=== PATIENT | male | born 1955 | race Caucasian/White ===

== ENCOUNTER → 2020-06-05 10:17 | Outpatient (REF) | payer OTHER, SELFPAY ==
--- NOTE | 2020-06-05 10:30 | CA_ITS ---
Transthoracic Echocardiogram Patient (Last, First, Middle): Richard Ordaz R Gender: Male Date of : 1955 Age: 64 Procedure Date: 06/05/2020 Procedure Type: Transthoracic Echocardiogram Location: OP Height: 180.34 cm Weight: 126.55 kg BSA: 2.43 m2 Heart Rate: bpm BP: 129 / 81 mmHg Instructional Resource Teacher: JOSE CRUZ Referring MD: Amalia Salcedo MD Symptoms: [facility] 110 Essential hypertension, M79.89 Edema lower extremity Study Quality: Fair ECG Rhythm: Sinus Conclusions: - The left ventricular systolic function is normal. The visually estimated ejection fraction is between 60-65%. - No obvious valvular pathology seen on this study. - Small plaque is seen in the ascending aorta. Findings Left Ventricle Normal left ventricular cavity size. There is normal left ventricular wall thickness. The left ventricular systolic function is normal. The visually estimated ejection fraction is between 60-65%. There is no evidence of regional wall motion abnormalities. Diastolic function is normal for age. Right Ventricle Normal right ventricular cavity size and systolic function. Atria The left atrium is normal in size. The right atrium is normal in size. Aortic Valve There is a normal trileaflet aortic valve. There is no aortic valve stenosis. There is no aortic valve regurgitation. Mitral Valve The mitral valve appears normal. There is no mitral valve regurgitation. There is no mitral valve stenosis. Pulmonic Valve The pulmonic valve was not well visualized. Tricuspid Valve Normal tricuspid valve structure. There is trace tricuspid valve regurgitation. The pulmonary artery systolic pressure is normal. Great Vessels The aortic annulus, sinuses of valsalva, and asc aorta are normal in size. Small plaque is seen in the ascending aorta. Venous The inferior vena cava was not well visualized. Pericardium/Pleural There is no evidence of pericardial effusion. Prior Study Comparison No prior study available for comparison. Recommendations, Care & Conclusions No obvious valvular pathology seen on this study. Measurements 2D Linear Measurements IVSd: 0.96 0.6-0.9/0.6-1.0 cm LVIDd: 5.32 3.9-5.3/4.2-5.9 cm LVIDd Index: 2.19 2.4-3.2/2.2-3.1 cm/m2 LVIDs: 3.28 2.0-3.6 cm LVPWd: 1.08 0.7-1.1 cm Ao Root: 3.20 2.1-3.5 cm LA Diam: 4.60 2.7-3.8/3.0-4.0 cm LAIDs Index: 1.89 1.5-2.3 cm/m2 LV Mass: 257.71 67-162/88-224 g LV Mass Index: 106.05 43-95/49-115 g/m2 LVOT Diam: 2.30 3.0+(-)1.3 cm 2D Systolic Function EF 4C: 64.50 >55% EF 2C: 63.20 >55% EF BiP: 63.40 >55% Mitral Valve MV Pk E: 0.68 MV PK A: 0.58 MV Decel Time: 132.00 E/A: 1.20 E'Lateral: 9.28 E'Medial: 9.96 E/E' Med: 6.80 E/E' Lat: 7.30 PHT: 39.00 MVA PHT: 5.64 Decel [place]: 5.14 Aortic Valve AoV Pk O[place]iel: 1.19 AoV Pk Grad: 6.00 LVOT LVOT Pk Otoniel: 1.15 LVOT Mn Otoniel: 0.80 LVOT VTI: 0.25 LVOT Pk Grad: 5.00 LVOT Mn Grad: 3.00 LVOT Diam: 2.30 LVOT Area: 4.15 Diastolic Function MV Pk E: 0.68 MV Pk A: 0.58 E/A: 1.20 E'Medial: 9.96 E/E' Med: 6.80 E' Laterial: 9.28 E/E' Lat: 7.30 Tricuspid Valve TR Pk Otoniel: 2.57 TR Pk Grad: 26.00 Great Vessels Aorta Ao Root-2D: 3.20 2.0-3.7 cm Ao Asc: 3.70 2.1-3.4 cm Updated in Other Vendor System with Status of Final Vitaliy Lay MD electronically signed on 06/06/2020 5:23:03 PM with status of Final
== END ==
LOC: HO.CARD 10:17
PROVIDERS: PCP Internal Medicine; Visit Provider Internal Medicine
DX: I10 Essential (primary) hypertension (principal); E78.9 Disorder of lipoprotein metabolism, unspecified; M79.89 Other specified soft tissue disorders
CPT/HCPCS: 93306

== ENCOUNTER 2020-11-27 10:10 | Outpatient (REF) | payer MEDICARE, OTHER, SELFPAY ==
[2020-11-27 11:18] LABS: MANUAL DIFF FLAG NO
[2020-11-27 11:31] LABS: Basophils Percent Auto 0.9 % (0-2); Eosinophils Absolute Auto 0.2 X10*3/uL (0.0-0.4); Eosinophils Percent Auto 3.9 % (0-4); Hematocrit 44.7 % (42-52); Hemoglobin 15.2 g/dl (14.0-18.0); Imm Gran Abs Auto 0.01 X10*3/uL (0.00-0.03); Imm Gran Pct Auto 0.2 % (0.0-0.4); Lymphocytes Absolute Auto 1.4 X10*3/uL (1.2-4.9); Lymphocytes Percent Auto 32.6 % (20-40); Mean Corpuscular Hemoglobin 28.3 pg (27.0-33.0); Mean Corpuscular Volume 83.1 fL (80-98); Mean Platelet Volume 8.1 fL (9.4-12.4); Monocytes Absolute Auto 0.4 X10*3/uL (0.1-1.2); Monocytes Percent Auto 9.6 % (2-11); Neutrophils Absolute Auto 2.3 X10*3/uL (2.0-8.3); Neutrophils Percent Auto 52.8 % (45-73); Platelet Count 223 X10*3/uL (160-400); Red Blood Count 5.38 X10*6/uL (4.60-5.80); Red Cell Distribution Width 13.9 % (11.0-16.0); White Blood Count 4.4 X10*3/uL (4.8-10.8)
[2020-11-27 12:18] LABS: Prostate Specific Antigen 4.03 ng/mL (<0.05-4.0)
[2020-11-27 12:25] LABS: Anion Gap 13 (12-20); Blood Urea Nitrogen 16 mg/dL (9-16); Calcium 9.1 mg/dL (8.4-10.2); Carbon Dioxide 27 mmol/L (22-29); Chloride 104 mmol/L (96-108); Cholesterol 173 mg/dL; Estimated Glomerular Filt Rate > 60; Glucose Fasting 103 mg/dL (60-99); HDL Cholesterol 38 mg/dL; LDL Cholesterol Calculated 110 mg/dl; Potassium 4.4 mmol/L (3.3-5.1); Sodium 140 mmol/L (135-145); Triglycerides 128 mg/dL
== END 2020-11-27 10:11 | disposition home or self-care (01) ==
LOC: HO.HMGCLDS 10:10
PROVIDERS: PCP Internal Medicine; Visit Provider Internal Medicine
DX: Z12.5 Encounter for screening for malignant neoplasm of prostate (principal); E66.9 Obesity, unspecified; E78.9 Disorder of lipoprotein metabolism, unspecified; G43.909 Migraine, unspecified, not intractable, without status migrainosus; I10 Essential (primary) hypertension; K76.0 Fatty (change of) liver, not elsewhere classified; N40.0 Benign prostatic hyperplasia without lower urinary tract symptoms; R73.01 Impaired fasting glucose
CPT/HCPCS: 36415; 80048; 80061; 84153; 85025

== ENCOUNTER 2021-02-04 13:00 | Outpatient (REF) | payer MEDICARE, OTHER, SELFPAY ==
[2021-02-04 15:07] LABS: Prostate Specific Antigen 4.03 ng/mL (<0.05-4.0)
== END 2021-02-04 13:01 | disposition home or self-care (01) ==
LOC: HO.HMGCLDS 13:00
PROVIDERS: PCP Internal Medicine; Visit Provider Physician Assistant Medical
DX: N40.1 Benign prostatic hyperplasia with lower urinary tract symptoms (principal)
CPT/HCPCS: 36415; 84153

== ENCOUNTER 2021-05-09 08:57 | Outpatient (REF) | payer MEDICARE, OTHER, SELFPAY ==
[2021-05-09 11:57] LABS: Alanine Aminotransferase 60 U/L (0-40); Albumin Level 4.2 g/dL (3.5-5.0); Alkaline Phosphatase 65 U/L (39-117); Anion Gap 13 (12-20); Aspartate Amino Transferase 43 U/L (5-37); Bilirubin Total 0.9 mg/dL (0.0-1.0); Blood Urea Nitrogen 18 mg/dL (9-16); Calcium 9.5 mg/dL (8.4-10.2); Carbon Dioxide 26 mmol/L (22-29); Chloride 104 mmol/L (96-108); Cholesterol 161 mg/dL; Estimated Glomerular Filt Rate > 60; Glucose Fasting 98 mg/dL (60-99); HDL Cholesterol 37 mg/dL; LDL Cholesterol Calculated 96 mg/dl; Potassium 3.8 mmol/L (3.3-5.1); Sodium 139 mmol/L (135-145); Total Protein 6.3 g/dL (6.5-8.0); Triglycerides 142 mg/dL
[2021-05-09 12:02] LABS: Estimated Average Glucose 111 mg/dL; Hemoglobin A1c % 5.5 %
== END 2021-05-09 08:58 | disposition home or self-care (01) ==
LOC: HO.HMGCLDS 08:57
PROVIDERS: PCP Internal Medicine; Visit Provider Internal Medicine
DX: K21.9 Gastro-esophageal reflux disease without esophagitis (principal); E78.9 Disorder of lipoprotein metabolism, unspecified; I10 Essential (primary) hypertension; K76.0 Fatty (change of) liver, not elsewhere classified; R73.01 Impaired fasting glucose; G43.909 Migraine, unspecified, not intractable, without status migrainosus; J44.9 Chronic obstructive pulmonary disease, unspecified; E66.01 Morbid (severe) obesity due to excess calories; Z91.09 Other allergy status, other than to drugs and biological substances
CPT/HCPCS: 36415; 80053; 80061; 83036

== ENCOUNTER 2021-09-19 10:19 | Outpatient (REF) | payer MEDICARE, OTHER, SELFPAY ==
[2021-09-19 14:52] LABS: Prostate Specific Antigen 4.46 ng/mL (<0.05-4.0)
== END 2021-09-19 10:20 | disposition home or self-care (01) ==
LOC: HO.HMGCLDS 10:19
PROVIDERS: Visit Provider Urology
DX: R97.20 Elevated prostate specific antigen [PSA] (principal); Z12.5 Encounter for screening for malignant neoplasm of prostate
CPT/HCPCS: 36415; 84153

== ENCOUNTER 2021-11-26 09:03 | Outpatient (REF) | payer MEDICARE, OTHER, SELFPAY ==
[2021-11-26 12:17] LABS: Alanine Aminotransferase 87 U/L (0-40); Albumin Level 4.4 g/dL (3.5-5.0); Alkaline Phosphatase 64 U/L (39-117); Anion Gap 12 (12-20); Aspartate Amino Transferase 47 U/L (5-37); Bilirubin Total 0.9 mg/dL (0.0-1.0); Blood Urea Nitrogen 15 mg/dL (9-16); Calcium 9.3 mg/dL (8.4-10.2); Carbon Dioxide 29 mmol/L (22-29); Chloride 104 mmol/L (96-108); Cholesterol 164 mg/dL; Estimated Glomerular Filt Rate > 60; Glucose Fasting 105 mg/dL (60-99); HDL Cholesterol 33 mg/dL; LDL Cholesterol Calculated 106 mg/dl; Potassium 4.1 mmol/L (3.3-5.1); Sodium 141 mmol/L (135-145); Total Protein 6.8 g/dL (6.5-8.0); Triglycerides 129 mg/dL
== END 2021-11-26 09:04 | disposition home or self-care (01) ==
LOC: HO.HMGCLDS 09:03
PROVIDERS: Visit Provider Internal Medicine
DX: E66.01 Morbid (severe) obesity due to excess calories (principal); E78.9 Disorder of lipoprotein metabolism, unspecified; G43.909 Migraine, unspecified, not intractable, without status migrainosus; I10 Essential (primary) hypertension; K76.0 Fatty (change of) liver, not elsewhere classified; Z91.09 Other allergy status, other than to drugs and biological substances
CPT/HCPCS: 36415; 80053; 80061

== ENCOUNTER 2022-03-21 10:11 | Outpatient (REF) | payer MEDICARE, OTHER, SELFPAY ==
[2022-03-21 12:25] LABS: Prostate Specific Antigen 3.28 ng/mL (<0.05-4.0)
== END 2022-03-21 10:12 | disposition home or self-care (01) ==
LOC: HO.HMGCLDS 10:11
PROVIDERS: PCP Internal Medicine; Visit Provider Urology
DX: Z12.5 Encounter for screening for malignant neoplasm of prostate (principal); R97.20 Elevated prostate specific antigen [PSA]
CPT/HCPCS: 36415; 84153

== ENCOUNTER 2022-03-28 12:18 | Outpatient (REF) | payer MEDICARE, OTHER, SELFPAY ==
--- NOTE | ~2022-03-28 | XR_ITS ---
EXAMINATION: XR FOOT, RIGHT CLINICAL INFORMATION: Right foot pain. COMPARISON: None TECHNIQUE: AP, lateral, and oblique views of the right foot. FINDINGS: There is no acute fracture or dislocation. Mild to moderate interphalangeal degenerative joint changes are seen. The tarsal bones are normally aligned. Small plantar and retrocalcaneal spurs are seen. The soft tissues are unremarkable. 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 No acute fracture.
== END 2022-03-28 12:19 | disposition home or self-care (01) ==
LOC: HO.HMGCX 12:18
PROVIDERS: Visit Provider Nurse Practitioner Acute Care
DX: M79.671 Pain in right foot (principal)
CPT/HCPCS: 73630

== ENCOUNTER 2022-07-08 08:40 | Outpatient (REF) | payer MEDICARE, OTHER, SELFPAY ==
[2022-07-08 11:28] LABS: MANUAL DIFF FLAG NO
[2022-07-08 11:47] LABS: Basophils Absolute Auto 0.1 X10*3/uL (0.0-0.2); Eosinophils Absolute Auto 0.1 X10*3/uL (0.0-0.4); Eosinophils Percent Auto 2.9 % (0-4); Hematocrit 44.2 % (42.0-52.0); Hemoglobin 14.6 g/dl (14.0-18.0); Imm Gran Abs Auto 0.02 X10*3/uL (0.00-0.03); Imm Gran Pct Auto 0.4 % (0.0-0.4); Lymphocytes Absolute Auto 1.6 X10*3/uL (1.2-4.9); Lymphocytes Percent Auto 32.2 % (20-40); Mean Corpuscular Hemoglobin 27.5 pg (27.0-33.0); Mean Corpuscular Volume 83.4 fL (80.0-98.0); Mean Platelet Volume 8.1 fL (9.4-12.4); Monocytes Absolute Auto 0.4 X10*3/uL (0.1-1.2); Monocytes Percent Auto 8.4 % (2-11); Neutrophils Absolute Auto 2.7 x10*3/uL (2.0-8.3); Neutrophils Percent Auto 55.1 % (45-73); Platelet Count 319 X10*3/uL (160-400); Red Cell Distribution Width 14.5 % (11.0-16.0); White Blood Count 4.9 X10*3/uL (4.8-10.8)
[2022-07-08 12:19] LABS: Alanine Aminotransferase 38 U/L (0-40); Albumin Level 4.2 g/dL (3.5-5.0); Alkaline Phosphatase 74 U/L (39-117); Anion Gap 15 (12-20); Aspartate Amino Transferase 23 U/L (5-37); Bilirubin Total 0.6 mg/dL (0.0-1.0); Blood Urea Nitrogen 18 mg/dL (9-16); Calcium 9.5 mg/dL (8.4-10.2); Carbon Dioxide 26 mmol/L (22-29); Chloride 104 mmol/L (96-108); Cholesterol 215 mg/dL; Estimated Glomerular Filt Rate > 60; Glucose Fasting 108 mg/dL (60-99); HDL Cholesterol 47 mg/dL; LDL Cholesterol Calculated 134 mg/dl; Potassium 4.1 mmol/L (3.3-5.1); Sodium 141 mmol/L (135-145); Total Protein 6.9 g/dL (6.5-8.0); Triglycerides 173 mg/dL
== END 2022-07-08 08:41 | disposition home or self-care (01) ==
LOC: HO.HMGCLDS 08:40
PROVIDERS: PCP Internal Medicine; Visit Provider Internal Medicine
DX: E78.9 Disorder of lipoprotein metabolism, unspecified (principal); G43.909 Migraine, unspecified, not intractable, without status migrainosus; I10 Essential (primary) hypertension; K21.9 Gastro-esophageal reflux disease without esophagitis; K76.0 Fatty (change of) liver, not elsewhere classified; M79.671 Pain in right foot; N40.0 Benign prostatic hyperplasia without lower urinary tract symptoms; R73.01 Impaired fasting glucose; Z91.09 Other allergy status, other than to drugs and biological substances
CPT/HCPCS: 36415; 80053; 80061; 85025

== ENCOUNTER 2022-11-04 08:08 | Outpatient (REF) | payer MEDICARE, OTHER, SELFPAY ==
[2022-11-04 12:10] LABS: Estimated Average Glucose 120 mg/dL; Hemoglobin A1C 151.8393 umol/L; Hemoglobin A1c % 5.8 %
[2022-11-04 12:38] LABS: Alanine Aminotransferase 59 U/L (0-40); Albumin Level 4.1 g/dL (3.5-5.0); Alkaline Phosphatase 62 U/L (39-117); Anion Gap 13 (12-20); Aspartate Amino Transferase 39 U/L (5-37); Bilirubin Total 0.8 mg/dL (0.0-1.0); Blood Urea Nitrogen 16 mg/dL (9-16); Calcium 8.9 mg/dL (8.4-10.2); Carbon Dioxide 28 mmol/L (22-29); Chloride 105 mmol/L (96-108); Cholesterol 184 mg/dL; Estimated Glomerular Filt Rate > 60; Glucose Fasting 105 mg/dL (60-99); HDL Cholesterol 37 mg/dL; LDL Cholesterol Calculated 109 mg/dl; Potassium 4.3 mmol/L (3.3-5.1); Sodium 142 mmol/L (135-145); Total Protein 6.4 g/dL (6.5-8.0); Triglycerides 191 mg/dL
== END 2022-11-04 08:09 | disposition home or self-care (01) ==
LOC: HO.HMGCLDS 08:08
PROVIDERS: PCP Internal Medicine; Visit Provider Internal Medicine
DX: I10 Essential (primary) hypertension (principal); K76.0 Fatty (change of) liver, not elsewhere classified; R73.01 Impaired fasting glucose; E78.9 Disorder of lipoprotein metabolism, unspecified
CPT/HCPCS: 36415; 80053; 80061; 83036

== ENCOUNTER 2023-04-07 10:06 | Outpatient (AMB) | payer MEDICARE, OTHER, SELFPAY ==
[2023-04-07 10:13] VITALS: BP 174/86; PULSE 58; O2SAT 99; BMI 44.5
--- NOTE | 2023-04-07 10:13 | MHC.PC.OV ---
Vital Signs 04/07/23 10:13 04/07/23 10:40 Height 5 ft 7 in Weight 284 lb 2 oz BMI 44.5 BP 174/86 H 156/86 H Blood Pressure Location Rt brachial Rt brachial Position Sitting Sitting Pulse 58 Pulse Source Pulse Oximeter Pulse Oximetry (%) 99 Oxygen Delivery Method Room Air Intake Visit Reasons: 4 month follow up COPD Allergies No Known Allergies [No Known Allergies*] Allergy (Verified 04/07/23 10:14) Medication List - Last Reconciled 04/07/23 by Amalia Salcedo MD albuterol sulfate 90 mcg/actuation (ProAir HFA) 2 puffs inhalation Q4-6H PRN 3 days ezetimibe (Zetia) 10 mg PO DAILY 90 days fluticasone propionate 50 mcg/actuation (Allergy Relief (fluticasone)) 1 spray intranasal DAILY 30 days hydrochlorothiazide 25 mg PO QAM 90 days losartan 50 mg PO ONCE 90 days omeprazole 20 mg PO BID PRN 90 days propranolol ER 60 mg PO DAILY rosuvastatin 10 mg PO DAILY tamsulosin 0.4 mg PO DAILY 90 days Tobacco use date assessed: 04/07/23 Fall risk assessment: No Falls in past year Last assessed Fall Risk: 04/07/23 Dental Screening Dental Screen Date: 04/07/23 Did you have a dental visit in the last 12 months?: Yes Did you have a dental problem in the last 6 months where you did not have access to dental care?: No Was dental information given to patient?: No HPI 4 month follow up COPD HPI Details Patient is 67-year-old male came in today for his regular follow-up visit Patient went [facility] in [place] and injured his right index finger 1st, which got infected he was evaluated in walk-in clinic and was started on Keflex which he just finished yesterday about 7 days ago he was chopping wood and hit the axe on his right lower leg causing laceration, but he has not seen anyone. Patient was on antibiotic for his finger anyway. Upon evaluation today I see that he had about 2 in long linear laceration with edges that are not approximated. We changed the dressing today patient will continue to change dressing at home at this point it does not look infected He is to return in 10 days 40 evaluation for that and blood pressure Hypertension: patient is to continue hydrochlorothiazide 25 mg and losartan 50 mg once a day, patient is tolerating medications no side effects. Blood pressure is elevated at 156/86 Lipid disorder : LDL is stable with rosuvastatin 10 mg and Zetia.? Mild elevation of LFT however stable Chronic GERD, patient is on omeprazole 20 mg b.i.d. Allergies are stable Headache is stable taking propranolol 60 mg once a day. 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 Ocampo as employment specialist, sleep apnea and CPAP management through employment specialist BMI is above 40 and he has gained more weight. Patient also have impaired fasting sugar and has been encouraged to control diet Follow-up 10 days for leg wound and blood pressure, and 3 month for regular follow-up [facility] Medical History Benign prostatic hyperplasia Chronic GERD COPD, mild Environmental allergies Fatty liver Hypertension, essential Impaired fasting blood sugar Lipid disorder Migraine headache Obesity Obstructive sleep apnea on CPAP Surgical History History of colonoscopy Family History Father Hx of CABG Mother No problems noted. Sister ETOH abuse Substance use disorder Maternal Grandfather No problems noted. Maternal Grandmother No problems noted. Paternal Grandfather No problems noted. Paternal Grandmother No problems noted. Brother No problems noted. Daughter No problems noted. Social History Housing: House Alcohol intake: current Alcohol intake frequency: 0-2 drinks per day Patient Tobacco Use Status: Former Tobacco user Quit Date: 1993 e-Cigarette/Vaping Use: Never Used service: Yes Current occupational status: retired Cognitive needs: No Hearing needs: No Vision needs: Yes Questionnaire Thrive Questionnaire Date Thrive assessed: 12/04/21 AUDIT C Alcohol Use Questionnaire (AUDIT-C) 1. How often do you have a drink containing alcohol?: Monthly or less 2. How many drinks containing alcohol do you have on a typical day when you are drinking?: 1 or 2 3. How often do you have six or more drinks on one occasion?: Never Total Score: 1 Score Reviewed/Action Taken: Yes VINCENZO-7 AMB Questionnaire VINCENZO-7 Date VINCENZO - 7 assessed: 12/04/21 Source: Developed by Drs. Jasvir Camarillo, Cindy Weiner, Flaco Chance and colleagues, with an educational maricarmen from [employer]. Review of Systems Const Denies chills and Denies fever(s) ENT Denies epistaxis and Denies nasal discharge Card Denies chest pain Resp Denies chest congestion, Denies cough and Denies hemoptysis GI Denies diarrhea and Denies nausea Skin/Breast Denies rash Neuro Reports no additional complaints Psych Reports no additional complaints Endo Reports no additional complaints Physical exam (Primary Care) Vital Signs: Last Vital Signs Pulse 58 04/07/23 10:13 BP 156/86 H 04/07/23 10:40 Pulse Ox 99 04/07/23 10:13 Oxygen Delivery Method Room Air 04/07/23 10:13 BMI result Body Mass Index 44.5 Tobacco/Smoking Status: Tobacco use Status Tobacco use date assessed 04/07/23 04/07/23 10:15 Patient Tobacco Use Status Former Tobacco user 04/07/23 10:15 e-Cigarette/Vaping Use Never Used 04/07/23 10:15 Thrive Assessment: Date of Thrive Assessment Date Thrive assessed 12/04/21 04/07/23 10:15 Const General: cooperative, comfortable and no acute distress Orientation/consciousness: patient oriented x3 HENMT Head: Yes normocephalic Eyes General: appearance normal, both eyes and all related structures Neck Neck: Yes supple Resp Effort & Inspection: normal respiratory effort, no cough and no stridor Cardio Rhythm: regular rhythm Heart sounds: S1 normal heart sound present and S2 normal heart sound present Skin General skin exam: turgor normal Full body images: 1. About 2 in linear wound right lower leg no signs of infection edges are not approximated, clean and new bandage applied, tetanus is up-to-date Neuro General: patient oriented x3, tone normal and moves all extremities Extrem Right lower extremity: no edema Left lower extremity: no edema Assessment and Plan Assessment & Plan (1) Laceration of skin of right lower leg: Code(s): S81.811A - Laceration without foreign body, right lower leg, initial encounter (2) Hypertension, essential: Code(s): I10 - Essential (primary) hypertension (3) Lipid disorder: Code(s): E78.9 - Disorder of lipoprotein metabolism, unspecified (4) Benign prostatic hyperplasia: Code(s): N40.0 - Benign prostatic hyperplasia without lower urinary tract symptoms (5) Chronic GERD: Code(s): K21.9 - Gastro-esophageal reflux disease without esophagitis (6) Fatty liver: Code(s): K76.0 - Fatty (change of) liver, not elsewhere classified (7) Impaired fasting blood sugar: Code(s): R73.01 - Impaired fasting glucose (8) Migraine headache: Code(s): G43.909 - Migraine, unspecified, not intractable, without status migrainosus (9) Environmental allergies: Code(s): Z91.09 - Other allergy status, other than to drugs and biological substances (10) Obstructive sleep apnea on CPAP: Code(s): G47.33 - Obstructive sleep apnea (adult) (pediatric); Z99.89 - Dependence on other enabling machines and devices (11) COPD, mild: Code(s): J44.9 - Chronic obstructive pulmonary disease, unspecified (12) Morbid obesity due to excess calories: Code(s): E66.01 - Morbid (severe) obesity due to excess calories Plan Patient is 67-year-old male came in today for his regular follow-up visit Patient went [facility] in [place] and injured his right index finger 1st, which got infected he was evaluated in walk-in clinic and was started on Keflex which he just finished yesterday about 7 days ago he was chopping wood and hit the axe on his right lower leg causing laceration, but he has not seen anyone. Patient was on antibiotic for his finger anyway. Upon evaluation today I see that he had about 2 in long linear laceration with edges that are not approximated. We changed the dressing today patient will continue to change dressing at home at this point it does not look infected He is to return in 10 days 40 evaluation for that and blood pressure Hypertension: patient is to continue hydrochlorothiazide 25 mg and losartan 50 mg once a day, patient is tolerating medications no side effects. Blood pressure is elevated at 156/86 Lipid disorder : LDL is stable with rosuvastatin 10 mg and Zetia.? Mild elevation of LFT however stable Chronic GERD, patient is on omeprazole 20 mg b.i.d. Allergies are stable Headache is stable taking propranolol 60 mg once a day. 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 Ocampo as employment specialist, sleep apnea and CPAP management through employment specialist BMI is above 40 and he has gained more weight. Patient also have impaired fasting sugar and has been encouraged to control diet Follow-up 10 days for leg wound and blood pressure, and 3 month for regular follow-up Orders: Orders Comprehensive Met. Panel Today E78.9 - Disorder of lipoprotein metabolism, unspecified, G43.909 - Migraine, unspecified, not intractable, without status migrainosus, I10 - Essential (primary) hypertension, K21.9 - Gastro-esophageal reflux disease without esophagitis, K76.0 - Fatty (change of) liver, not elsewhere classified, N40.0 - Benign prostatic hyperplasia without lower urinary tract symptoms, R73.01 - Impaired fasting glucose, Z91.09 - Other allergy status, other than to drugs and biological substances LDL Cholesterol Direct Today E78.9 - Disorder of lipoprotein metabolism, unspecified, G43.909 - Migraine, unspecified, not intractable, without status migrainosus, I10 - Essential (primary) hypertension, K21.9 - Gastro-esophageal reflux disease without esophagitis, K76.0 - Fatty (change of) liver, not elsewhere classified, N40.0 - Benign prostatic hyperplasia without lower urinary tract symptoms, R73.01 - Impaired fasting glucose, Z91.09 - Other allergy status, other than to drugs and biological substances Complete Blood Count Auto Diff Today E78.9 - Disorder of lipoprotein metabolism, unspecified, G43.909 - Migraine, unspecified, not intractable, without status migrainosus, I10 - Essential (primary) hypertension, K21.9 - Gastro-esophageal reflux disease without esophagitis, K76.0 - Fatty (change of) liver, not elsewhere classified, N40.0 - Benign prostatic hyperplasia without lower urinary tract symptoms, R73.01 - Impaired fasting glucose, Z91.09 - Other allergy status, other than to drugs and biological substances Coding Level of Care Code Est Pt Level 4 (62980) Diagnoses Laceration of skin of right lower leg S81.811A Hypertension, essential I10 Lipid disorder E78.9 Benign prostatic hyperplasia N40.0 Chronic GERD K21.9 Fatty liver K76.0 Impaired fasting blood sugar R73.01 Migraine headache G43.909 Environmental allergies Z91.09 Obstructive sleep apnea on CPAP G47.33; Z99.89 COPD, mild J44.9 Morbid obesity due to excess calories E66.01
[2023-04-07 10:40] VITALS: BP 156/86
== END 2023-04-07 11:02 | disposition home or self-care (01) ==
PROVIDERS: PCP Internal Medicine; Visit Provider Internal Medicine
DX: S81.811A Laceration without foreign body, right lower leg, initial encounter (principal); I10 Essential (primary) hypertension; E78.9 Disorder of lipoprotein metabolism, unspecified; N40.0 Benign prostatic hyperplasia without lower urinary tract symptoms; K21.9 Gastro-esophageal reflux disease without esophagitis; K76.0 Fatty (change of) liver, not elsewhere classified; R73.01 Impaired fasting glucose; G43.909 Migraine, unspecified, not intractable, without status migrainosus; Z91.09 Other allergy status, other than to drugs and biological substances; G47.33 Obstructive sleep apnea (adult) (pediatric); Z99.89 Dependence on other enabling machines and devices; J44.9 Chronic obstructive pulmonary disease, unspecified
CPT/HCPCS: 99214

== ENCOUNTER 2023-04-13 09:15 | Outpatient (REF) | payer MEDICARE, OTHER, SELFPAY ==
[2023-04-13 12:00] LABS: MANUAL DIFF FLAG NO
[2023-04-13 12:05] LABS: Basophils Percent Auto 0.8 % (0-2); Eosinophils Absolute Auto 0.2 X10*3/uL (0.0-0.4); Eosinophils Percent Auto 4.1 % (0-4); Hematocrit 45.8 % (42.0-52.0); Hemoglobin 15.5 g/dl (14.0-18.0); Lymphocytes Percent Auto 28.7 % (20-40); Mean Corpuscular HGB Conc 33.8 g/dl (31.0-36.0); Mean Corpuscular Hemoglobin 27.4 pg (27.0-33.0); Mean Corpuscular Volume 80.9 fL (80.0-98.0); Mean Platelet Volume 8.3 fL (9.4-12.4); Monocytes Absolute Auto 0.2 X10*3/uL (0.1-1.2); Monocytes Percent Auto 5.8 % (2-11); Neutrophils Absolute Auto 2.2 x10*3/uL (2.0-8.3); Neutrophils Percent Auto 60.6 % (45-73); Platelet Count 223 X10*3/uL (160-400); Red Blood Count 5.66 X10*6/uL (4.60-5.80); Red Cell Distribution Width 13.5 % (11.0-16.0); White Blood Count 3.6 X10*3/uL (4.8-10.8)
[2023-04-13 12:47] LABS: Alanine Aminotransferase 51 U/L (0-40); Albumin Level 4.2 g/dL (3.5-5.0); Alkaline Phosphatase 66 U/L (39-117); Anion Gap 10 (12-20); Aspartate Amino Transferase 29 U/L (5-37); Bilirubin Total 0.6 mg/dL (0.0-1.0); Blood Urea Nitrogen 15 mg/dL (9-16); Calcium 9.5 mg/dL (8.4-10.2); Carbon Dioxide 28 mmol/L (22-29); Chloride 105 mmol/L (96-108); Estimated Glomerular Filt Rate > 60; Glucose Random 156 mg/dL (60-115); Potassium 3.8 mmol/L (3.3-5.1); Sodium 139 mmol/L (135-145); Total Protein 7.1 g/dL (6.5-8.0)
[2023-04-13 13:06] LABS: Prostate Specific Antigen 3.85 ng/mL (<0.05-4.0)
[2023-04-14 13:59] LABS: LDL Cholesterol Direct 107 mg/dL (<100)
== END 2023-04-13 09:16 | disposition home or self-care (01) ==
LOC: HO.HMGCLDS 09:15
PROVIDERS: Absent Provider Urology; PCP Internal Medicine; Visit Provider Internal Medicine
DX: Z12.5 Encounter for screening for malignant neoplasm of prostate (principal); R97.20 Elevated prostate specific antigen [PSA]; I10 Essential (primary) hypertension; E78.9 Disorder of lipoprotein metabolism, unspecified; G43.909 Migraine, unspecified, not intractable, without status migrainosus; K21.9 Gastro-esophageal reflux disease without esophagitis; K76.0 Fatty (change of) liver, not elsewhere classified; N40.0 Benign prostatic hyperplasia without lower urinary tract symptoms; R73.01 Impaired fasting glucose; Z91.09 Other allergy status, other than to drugs and biological substances
CPT/HCPCS: 36415; 80053; 83721; 84153; 85025

== ENCOUNTER 2023-04-17 14:25 | Outpatient (AMB) | payer MEDICARE, OTHER, SELFPAY ==
[2023-04-17 14:31] VITALS: BP 142/72; PULSE 55; O2SAT 95; BMI 44.5
--- NOTE | 2023-04-17 14:31 | MHC.PC.OV ---
Vital Signs 04/17/23 14:31 Height 5 ft 7 in Weight 284 lb 4 oz BMI 44.5 BP 142/72 H Blood Pressure Location Lt brachial Position Sitting Pulse 55 Pulse Source Pulse Oximeter Pulse Oximetry (%) 95 Oxygen Delivery Method Room Air Intake Visit Reasons: 10 Day follow up Allergies No Known Allergies [No Known Allergies*] Allergy (Verified 04/17/23 14:32) Medication List - Last Reconciled 04/17/23 by Amalia Salcedo MD albuterol sulfate 90 mcg/actuation (ProAir HFA) 2 puffs inhalation Q4-6H PRN 3 days ezetimibe (Zetia) 10 mg PO DAILY 90 days fluticasone propionate 50 mcg/actuation (Allergy Relief (fluticasone)) 1 spray intranasal DAILY 30 days hydrochlorothiazide 25 mg PO QAM 90 days losartan 50 mg PO ONCE 90 days omeprazole 20 mg PO BID PRN 90 days propranolol ER 60 mg PO DAILY rosuvastatin 10 mg PO DAILY tamsulosin 0.4 mg PO DAILY 90 days Tobacco use date assessed: 04/17/23 Fall risk assessment: No Falls in past year Last assessed Fall Risk: 04/17/23 Dental Screening Dental Screen Date: 04/17/23 Did you have a dental visit in the last 12 months?: Yes Did you have a dental problem in the last 6 months where you did not have access to dental care?: No Was dental information given to patient?: No HPI 10 Day follow up HPI Details Patient is a 67-year-old gentleman came in today to have his right leg wound check and to go over labs Labs reviewed with the patient they are stable Wound off his right lower leg is healing very well the edges are approximated now there are no signs of inflammation or infection New bandage applied patient was instructed not to right motorcycle or bicycle for another week. [facility] Medical History Benign prostatic hyperplasia Chronic GERD COPD, mild Environmental allergies Fatty liver Hypertension, essential Impaired fasting blood sugar Lipid disorder Migraine headache Obesity Obstructive sleep apnea on CPAP Surgical History History of colonoscopy Family History Father Hx of CABG Mother No problems noted. Sister ETOH abuse Substance use disorder Maternal Grandfather No problems noted. Maternal Grandmother No problems noted. Paternal Grandfather No problems noted. Paternal Grandmother No problems noted. Brother No problems noted. Daughter No problems noted. Social History Housing: House Alcohol intake: current Alcohol intake frequency: 0-2 drinks per day Patient Tobacco Use Status: Former Tobacco user Quit Date: 1993 e-Cigarette/Vaping Use: Never Used service: Yes Current occupational status: retired Cognitive needs: No Hearing needs: No Vision needs: Yes Questionnaire Thrive Questionnaire Date Thrive assessed: 12/04/21 AUDIT C Alcohol Use Questionnaire (AUDIT-C) 1. How often do you have a drink containing alcohol?: Never 3. How often do you have six or more drinks on one occasion?: Never Total Score: 0 Score Reviewed/Action Taken: Yes VINCENZO-7 AMB Questionnaire VINCENZO-7 Date VINCENZO - 7 assessed: 12/04/21 Source: Developed by Drs. Jasvir Camarillo, Cindy Weiner, Flaco Chance and colleagues, with an educational maricarmen from [employer]. Review of Systems Const All systems reviewed & are unremarkable except as noted in HPI and below Physical exam (Primary Care) Vital Signs: Last Vital Signs Pulse 55 04/17/23 14:31 BP 142/72 H 04/17/23 14:31 Pulse Ox 95 04/17/23 14:31 Oxygen Delivery Method Room Air 04/17/23 14:31 BMI result Body Mass Index 44.5 Tobacco/Smoking Status: Tobacco use Status Tobacco use date assessed 04/17/23 04/17/23 14:33 Patient Tobacco Use Status Former Tobacco user 04/17/23 14:33 e-Cigarette/Vaping Use Never Used 04/17/23 14:33 Thrive Assessment: Date of Thrive Assessment Date Thrive assessed 12/04/21 04/17/23 14:33 Const General: no acute distress Orientation/consciousness: patient oriented x3 Eyes General: appearance normal, both eyes and all related structures Resp Effort & Inspection: normal respiratory effort and able to speak in complete sentences Auscultation: clear to auscultation bilaterally Neuro General: patient oriented x3 Extrem Upper/lower leg/hip images: 1. Wound is healing well no signs of inflammation or infection Psych Mental Status: mental status grossly normal Assessment and Plan Assessment & Plan (1) Laceration of skin of right lower leg: Code(s): S81.811A - Laceration without foreign body, right lower leg, initial encounter Plan Patient is a 67-year-old gentleman came in today to have his right leg wound check and to go over labs Labs reviewed with the patient they are stable Wound off his right lower leg is healing very well the edges are approximated now there are no signs of inflammation or infection New bandage applied patient was instructed not to right motorcycle or bicycle for another week. Coding Level of Care Code Est Pt Level 3 (17512) Diagnoses Laceration of skin of right lower leg S81.811A
== END 2023-04-17 16:27 | disposition home or self-care (01) ==
PROVIDERS: PCP Internal Medicine; Visit Provider Internal Medicine
DX: S81.811A Laceration without foreign body, right lower leg, initial encounter (principal)
CPT/HCPCS: 99213

== ENCOUNTER 2023-07-10 09:07 | Outpatient (AMB) | payer MEDICARE, OTHER, SELFPAY ==
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
[2023-07-10 09:11] VITALS: BP 132/86; PULSE 67; O2SAT 92; BMI 46.5
== END 2023-07-10 09:56 | disposition home or self-care (01) ==
PROVIDERS: PCP Internal Medicine; Visit Provider Internal Medicine
DX: Z00.00 Encounter for general adult medical examination without abnormal findings (principal)
CPT/HCPCS: 1124F; G0439

== ENCOUNTER 2024-01-05 09:47 | Outpatient (AMB) | payer MEDICARE, OTHER, SELFPAY ==
--- NOTE | 2024-01-05 09:52 | A.OFFPC_ITS ---
Vital Signs 01/05/24 09:53 Height 5 ft 7 in Weight 291 lb 4 oz BMI 45.6 BP 158/88 H Blood Pressure Location Lt brachial Position Sitting Pulse 78 Pulse Source Pulse Oximeter Pulse Oximetry (%) 95 Oxygen Delivery Method Room Air Intake Visit Reasons: 6 Month F/U Allergies No Known Allergies [No Known Allergies*] Allergy (Verified 01/05/24 10:01) Medication List - Last Reconciled 01/05/24 by Amalia Salcedo MD albuterol sulfate 90 mcg/actuation (ProAir HFA) 2 puffs inhalation Q4-6H PRN 3 days ezetimibe (Zetia) 10 mg PO DAILY 90 days fluticasone propionate 50 mcg/actuation (Allergy Relief (fluticasone)) 1 spray intranasal DAILY 30 days hydrochlorothiazide 25 mg PO QAM 90 days losartan 50 mg PO ONCE 90 days omeprazole 20 mg PO BID PRN 90 days propranolol ER 60 mg PO DAILY rosuvastatin 10 mg PO DAILY tamsulosin 0.4 mg PO DAILY 90 days Tobacco use date assessed: 01/05/24 Fall risk assessment: No Falls in past year Last assessed Fall Risk: 01/05/24 Dental Screening Dental Screen Date: 01/05/24 Did you have a dental visit in the last 12 months?: Yes Did you have a dental problem in the last 6 months where you did not have access to dental care?: No Was dental information given to patient?: Patient has dentist HPI 6 Month F/U HPI Details Patient is 68-year-old male came in today for his regular follow-up visit Hypertension: Patient's blood pressure is running around 120s systolic at home but when he comes here it is elevated, patient is to continue hydrochlorothiazide 25 mg and losartan 50 mg once a day, patient is tolerating medications no side effects. Lipid disorder : LDL is stable with rosuvastatin 10 mg and Zetia.? Mild elevation of LFT however stable Chronic GERD, patient is on omeprazole 20 mg b.i.d. Allergies are stable Headache is stable taking propranolol 60 mg once a day. 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 Patient also have impaired fasting sugar and has been encouraged to control diet Four months COUNTS INCLUDE 234 BEDS AT THE [facility] Medical History Obesity COPD, mild Environmental allergies Migraine headache Obstructive sleep apnea on CPAP Impaired fasting blood sugar Fatty liver Chronic GERD Benign prostatic hyperplasia Lipid disorder Hypertension, essential Surgical History History of colonoscopy Family History Father Hx of CABG Mother No problems noted. Sister ETOH abuse Substance use disorder Maternal Grandfather No problems noted. Maternal Grandmother No problems noted. Paternal Grandfather No problems noted. Paternal Grandmother No problems noted. Brother No problems noted. Daughter No problems noted. Social History Housing: House Alcohol intake: current Alcohol intake frequency: 0-2 drinks per day Patient Tobacco Use Status: Former Tobacco user Quit Date: 1993 e-Cigarette/Vaping Use: Never Used service: Yes Current occupational status: retired Cognitive needs: No Hearing needs: No Vision needs: Yes Questionnaire PHQ-9 Over the last 2 weeks, how often have you been bothered by any of the following problems? 1. Little interest or pleasure in doing things: not at all 2. Feeling down, depressed, or hopeless: not at all 3. Trouble falling or staying asleep, or sleeping too much: more than half the d ays 4. Feeling tired or having little energy: several days 5. Poor appetite or overeating: not at all 6. Feeling bad about yourself - or that you are a failure or have let yourself or your family down: not at all 7. Trouble concentrating on things, such as reading the newspaper or watching television: not at all 8. Moving or speaking so slowly that other people could have noticed. Or the opposite - being so fidgety or restless that you have been moving around a lot more than usual: not at all 9. Thoughts that you would be better off or of hurting yourself in some way: not at all Total score: 3 Depression Screening Interpretation: Negative Depression Screening Done: Yes 44781 - PHQ-9 Billing: Yes Source: Developed by Drs. Jasvir Camarillo, Cindy Weiner, Flaco Chance and colleagues, with an educational maricarmen from [employer]. Thrive Questionnaire Date Thrive assessed: 01/05/24 I am a: Patient What is your living situation today?: I have a steady place to live Within the past 12 months, did the food you bought not last and you didn't have the money to get more?: Never true Within the past 12 months, did you worry whether your food would run out before you got money to buy more?: Never true Do you have trouble paying for medicines?: No Do you have trouble getting transportation to medical appointments?: No Do you have trouble paying your heating and electricity bill?: No Do you have trouble taking care of your child, family member or friend?: No Do you have trouble with day-to-day activities such as bathing, preparing meals, shopping, managing finances, etc.?: No Are you currently unemployed and looking for a job?: No Are you interested in more education?: No Please select the resources that you would like help with: None Currently or been in a relationship where the following occur: no concerns reported THRIVE Score: 0 AUDIT C Alcohol Use Questionnaire (AUDIT-C) 1. How often do you have a drink containing alcohol?: 2-4 times a month 2. How many drinks containing alcohol do you have on a typical day when you are drinking?: 1 or 2 3. How often do you have six or more drinks on one occasion?: Never Total Score: 2 Score Reviewed/Action Taken: Yes VINCENZO-7 AMB Questionnaire VINCENZO-7 Date VINCENZO - 7 assessed: 01/05/24 Feeling nervous, anxious, or on edge: 0 = Not at all Not being able to stop or control worryin = Not at all Worrying too much about different things: 0 = Not at all Trouble relaxin = Several days Being so restless that it is hard to sit still: 0 = Not at all Becoming easily annoyed or irritable: 1 = Several days Feeling afraid as if something awful might happen: 0 = Not at all Total VINCENZO-7 score (0-4 normal; 5-9 mild; 10-14 moderate; 15-21 severe): 2 Source: Developed by Drs. Jasvir Camarillo, Cindy Weiner, Flaco Chance and colleagues, with an educational maricarmen from [employer]. VINCENZO-7 Assessment Billing VINCENZO-7 Assessment Tool: VINCENZO-7 Assessment 96212 Review of Systems Const Denies chills and Denies fever(s) ENT Denies epistaxis and Denies nasal discharge Card Denies chest pain Resp Denies chest congestion, Denies cough and Denies hemoptysis GI Denies diarrhea and Denies nausea Skin/Breast Denies rash Neuro Reports no additional complaints Psych Reports no additional complaints Endo Reports no additional complaints Physical exam (Primary Care) Vital Signs: Last Vital Signs Pulse 78 01/05/24 09:53 BP 158/88 H 01/05/24 09:53 Pulse Ox 95 01/05/24 09:53 Oxygen Delivery Method Room Air 01/05/24 09:53 BMI result Body Mass Index 45.6 Tobacco/Smoking Status: Tobacco use Status Tobacco use date assessed 01/05/24 01/05/24 09:53 Patient Tobacco Use Status Former Tobacco user 01/05/24 09:53 e-Cigarette/Vaping Use Never Used 01/05/24 09:53 PHQ-9: PHQ-9 Score PHQ-9: Total score 3 01/05/24 10:04 Depression Screening Interpretation: Negative Thrive Assessment: Date of Thrive Assessment Date Thrive assessed 01/05/24 01/05/24 10:04 Currently or been in a relationship where the following occur: no concerns reported Const General: cooperative, comfortable and no acute distress Orientation/consciousness: patient oriented x3 HENMT Head: Yes normocephalic Eyes General: appearance normal, both eyes and all related structures Neck Neck: Yes supple Resp Effort & Inspection: normal respiratory effort, no cough and no stridor Cardio Rhythm: regular rhythm Heart sounds: S1 normal heart sound present and S2 normal heart sound present Skin General skin exam: turgor normal Neuro General: patient oriented x3, tone normal and moves all extremities Extrem Right lower extremity: no edema Left lower extremity: no edema Assessment and Plan Assessment & Plan (1) Hypertension, essential: Code(s): I10 - Essential (primary) hypertension (2) Lipid disorder: Code(s): E78.9 - Disorder of lipoprotein metabolism, unspecified (3) Benign prostatic hyperplasia: Code(s): N40.0 - Benign prostatic hyperplasia without lower urinary tract symptoms Qualifiers: Lower urinary tract symptom presence: symptoms absent Qualified Code(s): N40.0 - Benign prostatic hyperplasia without lower urinary tract symptoms (4) Chronic GERD: Code(s): K21.9 - Gastro-esophageal reflux disease without esophagitis (5) Fatty liver: Code(s): K76.0 - Fatty (change of) liver, not elsewhere classified (6) Impaired fasting blood sugar: Code(s): R73.01 - Impaired fasting glucose (7) Obstructive sleep apnea on CPAP: Code(s): G47.33 - Obstructive sleep apnea (adult) (pediatric); Z99.89 - Dependence on other enabling machines and devices (8) Migraine headache: Code(s): G43.909 - Migraine, unspecified, not intractable, without status migrainosus Qualifiers: Migraine type: unspecified Status migrainosus presence: without status migrainosus Intractability: intractable Qualified Code(s): G43.919 - Migraine, unspecified, intractable, without status migrainosus (9) Environmental allergies: Code(s): Z91.09 - Other allergy status, other than to drugs and biological substances (10) COPD, mild: Code(s): J44.9 - Chronic obstructive pulmonary disease, unspecified Plan Patient is 68-year-old male came in today for his regular follow-up visit Hypertension: Patient's blood pressure is running around 120s systolic at home but when he comes here it is elevated, patient is to continue hydrochlorothiazide 25 mg and losartan 50 mg once a day, patient is tolerating medications no side effects. Lipid disorder : LDL is stable with rosuvastatin 10 mg and Zetia.? Mild elevation of LFT however stable Chronic GERD, patient is on omeprazole 20 mg b.i.d. Allergies are stable Headache is stable taking propranolol 60 mg once a day. 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 Patient also have impaired fasting sugar and has been encouraged to control diet Four months Orders: Orders Complete Blood Count Auto Diff Today E78.9 - Disorder of lipoprotein metabolism, unspecified, G43.909 - Migraine, unspecified, not intractable, without status migrainosus, G47.33 - Obstructive sleep apnea (adult) (pediatric), I10 - Essential (primary) hypertension, K21.9 - Gastro-esophageal reflux disease without esophagitis, K76.0 - Fatty (change of) liver, not elsewhere classified, N40.0 - Benign prostatic hyperplasia without lower urinary tract symptoms, R73.01 - Impaired fasting glucose, Z91.09 - Other allergy status, other than to drugs and biological substances, Z99.89 - Dependence on other enabling machines and devices Comprehensive Met. Panel Today E78.9 - Disorder of lipoprotein metabolism, unspecified, G43.909 - Migraine, unspecified, not intractable, without status migrainosus, G47.33 - Obstructive sleep apnea (adult) (pediatric), I10 - Essential (primary) hypertension, K21.9 - Gastro-esophageal reflux disease without esophagitis, K76.0 - Fatty (change of) liver, not elsewhere classified, N40.0 - Benign prostatic hyperplasia without lower urinary tract symptoms, R73.01 - Impaired fasting glucose, Z91.09 - Other allergy status, other than to drugs and biological substances, Z99.89 - Dependence on other enabling machines and devices Hemoglobin A1c Today E78.9 - Disorder of lipoprotein metabolism, unspecified, G43.909 - Migraine, unspecified, not intractable, without status migrainosus, G47.33 - Obstructive sleep apnea (adult) (pediatric), I10 - Essential (primary) hypertension, K21.9 - Gastro-esophageal reflux disease without esophagitis, K76.0 - Fatty (change of) liver, not elsewhere classified, N40.0 - Benign prostatic hyperplasia without lower urinary tract symptoms, R73.01 - Impaired fasting glucose, Z91.09 - Other allergy status, other than to drugs and biological substances, Z99.89 - Dependence on other enabling machines and devices LDL Cholesterol Direct Today E78.9 - Disorder of lipoprotein metabolism, un specified, G43.909 - Migraine, unspecified, not intractable, without status migrainosus, G47.33 - Obstructive sleep apnea (adult) (pediatric), I10 - Essential (primary) hypertension, K21.9 - Gastro-esophageal reflux disease without esophagitis, K76.0 - Fatty (change of) liver, not elsewhere classified, N40.0 - Benign prostatic hyperplasia without lower urinary tract symptoms, R73.01 - Impaired fasting glucose, Z91.09 - Other allergy status, other than to drugs and biological substances, Z99.89 - Dependence on other enabling machines and devices TSH reflex Free T4 Today E78.9 - Disorder of lipoprotein metabolism, unspecified, G43.909 - Migraine, unspecified, not intractable, without status migrainosus, G47.33 - Obstructive sleep apnea (adult) (pediatric), I10 - Es sential (primary) hypertension, K21.9 - Gastro-esophageal reflux disease without esophagitis, K76.0 - Fatty (change of) liver, not elsewhere classified, N40.0 - Benign prostatic hyperplasia without lower urinary tract symptoms, R73.01 - Impaired fasting glucose, Z91.09 - Other allergy status, other than to drugs and biological substances, Z99.89 - Dependence on other enabling machines and devices Medications: Changed From omeprazole 20 mg PO BID 90 days PRN 180 caps 0RF acid reflux To omeprazole 20 mg PO ONCE PRN 90 caps 3RF acid reflux 90 days Refilled losartan 50 mg PO ONCE 90 tabs 3RF 90 days Coding Level of Care Code Est Pt Level 4 (40129) Complex EM visit Add On G2211 Diagnoses Hypertension, essential I10 Lipid disorder E78.9 Benign prostatic hyperplasia without lower urinary tract symptoms N40.0 Lower urinary tract symptom presence: symptoms absent Chronic GERD K21.9 Fatty liver K76.0 Impaired fasting blood sugar R73.01 Obstructive sleep apnea on CPAP G47.33; Z99.89 Intractable migraine without status migrainosus, unspecified migraine type G43.919 Migraine type: unspecified Status migrainosus presence: without status migrainosus Intractability: intractable Environmental allergies Z91.09 COPD, mild J44.9 Additional Codes VINCENZO-7 Assessment Billing - VINCENZO-7 Assessment Tool: VINCENZO-7 Assessment [id number] ([id number])
[2024-01-05 09:53] VITALS: BP 158/88; PULSE 78; O2SAT 95; BMI 45.6
== END 2024-01-05 11:47 | disposition home or self-care (01) ==
PROVIDERS: PCP Internal Medicine; Visit Provider Internal Medicine
DX: I10 Essential (primary) hypertension (principal); E78.9 Disorder of lipoprotein metabolism, unspecified; N40.0 Benign prostatic hyperplasia without lower urinary tract symptoms; J44.9 Chronic obstructive pulmonary disease, unspecified; K21.9 Gastro-esophageal reflux disease without esophagitis; K76.0 Fatty (change of) liver, not elsewhere classified; R73.01 Impaired fasting glucose; G47.33 Obstructive sleep apnea (adult) (pediatric); Z99.89 Dependence on other enabling machines and devices; G43.919 Migraine, unspecified, intractable, without status migrainosus; Z91.09 Other allergy status, other than to drugs and biological substances
CPT/HCPCS: 99214; G2211

== ENCOUNTER 2024-01-05 10:12 | Outpatient (REF) | payer MEDICARE, OTHER, SELFPAY ==
[2024-01-05 13:17] LABS: MANUAL DIFF FLAG NO
[2024-01-05 13:37] LABS: Basophils Absolute Auto 0.1 X10*3/uL (0.0-0.2); Basophils Percent Auto 1.4 % (0-2); Eosinophils Absolute Auto 0.2 X10*3/uL (0.0-0.4); Eosinophils Percent Auto 5.3 % (0-4); Hematocrit 45.8 % (42.0-52.0); Hemoglobin 15.5 g/dl (14.0-18.0); Imm Gran Abs Auto 0.01 X10*3/uL (0.00-0.03); Imm Gran Pct Auto 0.2 % (0.0-0.4); Lymphocytes Absolute Auto 1.2 X10*3/uL (1.2-4.9); Lymphocytes Percent Auto 28.4 % (20-40); Mean Corpuscular HGB Conc 33.8 g/dl (31.0-36.0); Mean Corpuscular Volume 82.7 fL (80.0-98.0); Mean Platelet Volume 8.4 fL (9.4-12.4); Monocytes Absolute Auto 0.3 X10*3/uL (0.1-1.2); Neutrophils Absolute Auto 2.4 x10*3/uL (2.0-8.3); Neutrophils Percent Auto 56.7 % (45-73); Platelet Count 250 X10*3/uL (160-400); Red Blood Count 5.54 X10*6/uL (4.60-5.80); Red Cell Distribution Width 14.4 % (11.0-16.0); White Blood Count 4.2 X10*3/uL (4.8-10.8)
[2024-01-05 13:48] LABS: Estimated Average Glucose 117 mg/dL; Hemoglobin A1C 148.6192 umol/L; Hemoglobin A1c % 5.7 % (<6.0)
[2024-01-05 13:50] LABS: Alanine Aminotransferase 72 U/L (0-40); Albumin Level 4.5 g/dL (3.5-5.0); Alkaline Phosphatase 54 U/L (39-117); Anion Gap 15 (12-20); Aspartate Amino Transferase 47 U/L (5-37); Bilirubin Total 0.7 mg/dL (0.0-1.0); Blood Urea Nitrogen 18 mg/dL (9-16); Carbon Dioxide 26 mmol/L (22-29); Chloride 105 mmol/L (96-108); Estimated Glomerular Filt Rate > 60; Glucose Random 137 mg/dL (60-115); Potassium 3.6 mmol/L (3.3-5.1); Sodium 142 mmol/L (135-145); Total Protein 7.3 g/dL (6.5-8.0)
[2024-01-05 14:07] LABS: TSH reflex Free T4 2.33 uIU/mL (0.32-4.0)
[2024-01-06 09:09] LABS: LDL Cholesterol Direct 115 mg/dL (<100)
== END 2024-01-05 10:13 | disposition home or self-care (01) ==
LOC: HO.HMGCLDS 10:12
PROVIDERS: PCP Internal Medicine; Visit Provider Internal Medicine
DX: I10 Essential (primary) hypertension (principal); E78.9 Disorder of lipoprotein metabolism, unspecified; N40.0 Benign prostatic hyperplasia without lower urinary tract symptoms; K21.9 Gastro-esophageal reflux disease without esophagitis; K76.0 Fatty (change of) liver, not elsewhere classified; R73.01 Impaired fasting glucose; G43.909 Migraine, unspecified, not intractable, without status migrainosus; Z91.09 Other allergy status, other than to drugs and biological substances; G47.33 Obstructive sleep apnea (adult) (pediatric); Z99.89 Dependence on other enabling machines and devices
CPT/HCPCS: 36415; 80053; 83036; 83721; 84443; 85025

== ENCOUNTER 2024-04-05 09:50 | Outpatient (AMB) | payer MEDICARE, OTHER, SELFPAY ==
[2024-04-05 09:54] VITALS: BP 142/70; PULSE 61; O2SAT 97; BMI 43.7
--- NOTE | 2024-04-05 09:54 | MHC.PC.OV ---
Vital Signs 04/05/24 09:54 Height 5 ft 7 in Weight 279 lb BMI 43.7 BP 142/70 H Blood Pressure Location Rt brachial Position Sitting Pulse 61 Pulse Source Pulse Oximeter Pulse Oximetry (%) 97 Oxygen Delivery Method Room Air Intake Visit Reasons: 9 Month F/U Allergies No Known Allergies [No Known Allergies*] Allergy (Verified 04/05/24 09:57) Medication List - Last Reconciled 04/05/24 by Amalia Salcedo MD albuterol sulfate 90 mcg/actuation (ProAir HFA) 2 puffs inhalation Q4-6H PRN 3 days ezetimibe (Zetia) 10 mg PO DAILY 90 days fluticasone propionate 50 mcg/actuation (Allergy Relief (fluticasone)) 1 spray intranasal DAILY 30 days hydrochlorothiazide 25 mg PO QAM 90 days losartan 50 mg PO ONCE 90 days omeprazole 20 mg PO ONCE PRN 90 days propranolol ER 60 mg PO DAILY rosuvastatin 10 mg PO DAILY tamsulosin 0.4 mg PO DAILY 90 days Tobacco use date assessed: 04/05/24 Fall risk assessment: No Falls in past year Last assessed Fall Risk: 04/05/24 Dental Screening Dental Screen Date: 04/05/24 Did you have a dental visit in the last 12 months?: Yes Did you have a dental problem in the last 6 months where you did not have access to dental care?: No Was dental information given to patient?: Patient has dentist HPI 9 Month F/U HPI Details Patient is 68-year-old male came in today for his regular follow-up visit Patient has developed pilonidal cyst which flares up every now and then and causes discomfort Patient would like that evaluated and if possible removed, referral to surgery placed At this time there is no pain Hypertension: Patient's blood pressure is running around 120s systolic at home but when he comes here it is elevated, patient is to continue hydrochlorothiazide 25 mg and losartan 50 mg once a day, patient is tolerating medications no side effects. We will bring his blood pressure monitor along at his next visit Lipid disorder : LDL is stable with rosuvastatin 10 mg and Zetia.? Mild elevation of LFT however stable but were elevated last visit due to weight gain He was able to lose 12 lb as he is watching his portions and has started walking 2 miles daily Chronic GERD, patient is on omeprazole 20 mg b.i.d. Allergies are stable Headache is stable taking propranolol 60 mg once a day. 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 Ocampo as assistive technology specialist, sleep apnea and CPAP management through assistive technology specialist Impaired fasting sugar: We are monitoring it Patient has appointment in July [facility] Medical History Obesity COPD, mild Environmental allergies Migraine headache Obstructive sleep apnea on CPAP Impaired fasting blood sugar Fatty liver Chronic GERD Benign prostatic hyperplasia Lipid disorder Hypertension, essential Surgical History History of colonoscopy Family History Father Hx of CABG Mother No problems noted. Sister ETOH abuse Substance use disorder Maternal Grandfather No problems noted. Maternal Grandmother No problems noted. Paternal Grandfather No problems noted. Paternal Grandmother No problems noted. Brother No problems noted. Daughter No problems noted. Social History Housing: House Alcohol intake: current Alcohol intake frequency: 0-2 drinks per day Patient Tobacco Use Status: Former Tobacco user e-Cigarette/Vaping Use: Never Used service: Yes Current occupational status: retired Cognitive needs: No Hearing needs: No Vision needs: Yes Questionnaire PHQ-9 Over the last 2 weeks, how often have you been bothered by any of the following problems? 1. Little interest or pleasure in doing things: not at all 2. Feeling down, depressed, or hopeless: not at all 3. Trouble falling or staying asleep, or sleeping too much: several days 4. Feeling tired or having little energy: several days 5. Poor appetite or overeating: not at all 6. Feeling bad about yourself - or that you are a failure or have let yourself or your family down: not at all 7. Trouble concentrating on things, such as reading the newspaper or watching television: not at all 8. Moving or speaking so slowly that other people could have noticed. Or the opposite - being so fidgety or restless that you have been moving around a lot more than usual: not at all 9. Thoughts that you would be better off or of hurting yourself in some way: not at all Total score: 2 Depression Screening Interpretation: Negative Depression Screening Done: Yes 38073 - PHQ-9 Billing: Yes Source: Developed by Drs. Jasvir Camarillo, Cindy Weiner, Flaco Chance and colleagues, with an educational maricarmen from [employer]. Thrive Questionnaire Date Thrive assessed: 04/05/24 I am a: Patient What is your living situation today?: I have a steady place to live Within the past 12 months, did the food you bought not last and you didn't have the money to get more?: I choose not to answer this question Within the past 12 months, did you worry whether your food would run out before you got money to buy more?: I choose not to answer this question Do you have trouble paying for medicines?: I choose not to answer this question Do you have trouble getting transportation to medical appointments?: I choose not to answer this question Do you have trouble paying your heating and electricity bill?: I choose not to answer this question Do you have trouble taking care of your child, family member or friend?: I choose not to answer this question Do you have trouble with day-to-day activities such as bathing, preparing meals, shopping, managing finances, etc.?: I choose not to answer this question Are you currently unemployed and looking for a job?: No Are you interested in more education?: No Please select the resources that you would like help with: Housing/Detention Currently or been in a relationship where the following occur: I choose not to answer THRIVE Score: 0 AUDIT C Alcohol Use Questionnaire (AUDIT-C) 1. How often do you have a drink containing alcohol?: 2-3 times a week 2. How many drinks containing alcohol do you have on a typical day when you are drinking?: 1 or 2 3. How often do you have six or more drinks on one occasion?: Never Total Score: 3 Score Reviewed/Action Taken: Yes VINCENZO-7 AMB Questionnaire VINCENZO-7 Date VINCENZO - 7 assessed: 04/05/24 Feeling nervous, anxious, or on edge: 0 = Not at all Not being able to stop or control worryin = Not at all Worrying too much about different things: 0 = Not at all Trouble relaxin = Not at all Being so restless that it is hard to sit still: 0 = Not at all Becoming easily annoyed or irritable: 0 = Not at all Feeling afraid as if something awful might happen: 0 = Not at all Total VINCENZO-7 score (0-4 normal; 5-9 mild; 10-14 moderate; 15-21 severe): 0 Source: Developed by Drs. Jasvir Camarillo, Cindy Weiner, Flaco Chance and colleagues, with an educational maricarmen from [employer]. VINCENZO-7 Assessment Billing VINCENZO-7 Assessment Tool: VINCENZO-7 Assessment 83967 Review of Systems Const Denies chills and Denies fever(s) ENT Denies epistaxis and Denies nasal discharge Card Denies chest pain Resp Denies chest congestion, Denies cough and Denies hemoptysis GI Denies diarrhea and Denies nausea Skin/Breast Denies rash Neuro Reports no additional complaints Psych Reports no additional complaints Endo Reports no additional complaints Physical exam (Primary Care) Vital Signs: Last Vital Signs Pulse 61 04/05/24 09:54 BP 142/70 H 04/05/24 09:54 Pulse Ox 97 04/05/24 09:54 Oxygen Delivery Method Room Air 04/05/24 09:54 BMI result Body Mass Index 43.7 Tobacco/Smoking Status: Tobacco use Status Tobacco use date assessed 04/05/24 04/05/24 09:58 Patient Tobacco Use Status Former Tobacco user 04/05/24 09:58 e-Cigarette/Vaping Use Never Used 04/05/24 09:58 PHQ-9: PHQ-9 Score PHQ-9: Total score 2 04/05/24 10:02 Depression Screening Interpretation: Negative Thrive Assessment: Date of Thrive Assessment Date Thrive assessed 04/05/24 04/05/24 09:58 Currently or been in a relationship where the following occur: I choose not to answer Const General: cooperative, comfortable and no acute distress Orientation/consciousness: patient oriented x3 HENMT Head: Yes normocephalic Eyes General: appearance normal, both eyes and all related structures Neck Neck: Yes supple Resp Effort & Inspection: normal respiratory effort, no cough and no stridor Cardio Rhythm: regular rhythm Heart sounds: S1 normal heart sound present and S2 normal heart sound present Back/Spine/Pelvis Back/spine/pelvis image: 1. Round discolored area where cyst is flaring up recurrently Skin General skin exam: turgor normal Neuro General: patient oriented x3, tone normal and moves all extremities Extrem Right lower extremity: no edema Left lower extremity: no edema Assessment and Plan Assessment & Plan (1) Hypertension, essential: Code(s): I10 - Essential (primary) hypertension (2) Lipid disorder: Code(s): E78.9 - Disorder of lipoprotein metabolism, unspecified (3) Benign prostatic hyperplasia: Code(s): N40.0 - Benign prostatic hyperplasia without lower urinary tract symptoms Qualifiers: Lower urinary tract symptom presence: symptoms absent Qualified Code(s): N40.0 - Benign prostatic hyperplasia without lower urinary tract symptoms (4) Chronic GERD: Code(s): K21.9 - Gastro-esophageal reflux disease without esophagitis (5) Fatty liver: Code(s): K76.0 - Fatty (change of) liver, not elsewhere classified (6) Impaired fasting blood sugar: Code(s): R73.01 - Impaired fasting glucose (7) Obstructive sleep apnea on CPAP: Code(s): G47.33 - Obstructive sleep apnea (adult) (pediatric); Z99.89 - Dependence on other enabling machines and devices (8) Migraine headache: Code(s): G43.909 - Migraine, unspecified, not intractable, without status migrainosus Qualifiers: Intractability: intractable Migraine type: unspecified Status migrainosus presence: without status migrainosus Qualified Code(s): G43.919 - Migraine, unspecified, intractable, without status migrainosus (9) Environmental allergies: Code(s): Z91.09 - Other allergy status, other than to drugs and biological substances (10) COPD, mild: Code(s): J44.9 - Chronic obstructive pulmonary disease, unspecified (11) Pilonidal cyst: Code(s): L05.91 - Pilonidal cyst without abscess Plan Patient is 68-year-old male came in today for his regular follow-up visit Patient has developed pilonidal cyst which flares up every now and then and causes discomfort Patient would like that evaluated and if possible removed, referral to surgery placed At this time there is no pain Hypertension: Patient's blood pressure is running around 120s systolic at home but when he comes here it is elevated, patient is to continue hydrochlorothiazide 25 mg and losartan 50 mg once a day, patient is tolerating medications no side effects. We will bring his blood pressure monitor along at his next visit Lipid disorder : LDL is stable with rosuvastatin 10 mg and Zetia.? Mild elevation of LFT however stable but were elevated last visit due to weight gain He was able to lose 12 lb as he is watching his portions and has started walking 2 miles daily Chronic GERD, patient is on omeprazole 20 mg b.i.d. Allergies are stable Headache is stable taking propranolol 60 mg once a day. 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 Ocampo as assistive technology specialist, sleep apnea and CPAP management through assistive technology specialist Impaired fasting sugar: We are monitoring it Patient has appointment in July Orders: Orders Lipid Panel Today E78.9 - Disorder of lipoprotein metabolism, unspecified, G43.919 - Migraine, unspecified, intractable, without status migrainosus, G47.33 - Obstructive sleep apnea (adult) (pediatric), I10 - Essential (primary) hypertension, J44.9 - Chronic obstructive pulmonary disease, unspecified, K21.9 - Gastro-esophageal reflux disease without esophagitis, K76.0 - Fatty (change of) liver, not elsewhere classified, N40.0 - Benign prostatic hyperplasia without lower urinary tract symptoms, R73.01 - Impaired fasting glucose, Z91.09 - Other allergy status, other than to drugs and biological substances, Z99.89 - Dependence on other enabling machines and devices Complete Blood Count Auto Diff Today E78.9 - Disorder of lipoprotein metabolism, unspecified, G43.919 - Migraine, unspecified, intractable, without status migrainosus, G47.33 - Obstructive sleep apnea (adult) (pediatric), I10 - Essential (primary) hypertension, J44.9 - Chronic obstructive pulmonary disease, unspecified, K21.9 - Gastro-esophageal reflux disease without esophagitis, K76.0 - Fatty (change of) liver, not elsewhere classified, N40.0 - Benign prostatic hyperplasia without lower urinary tract symptoms, R73.01 - Impaired fasting glucose, Z91.09 - Other allergy status, other than to drugs and biological substances, Z99.89 - Dependence on other enabling machines and devices Comprehensive [place]. Panel Fast Today E78.9 - Disorder of lipoprotein metabolism, unspecified, G43.919 - Migraine, unspecified, intractable, without status migrainosus, G47.33 - Obstructive sleep apnea (adult) (pediatric), I10 - Essential (primary) hypertension, J44.9 - Chronic obstructive pulmonary disease, unspecified, K21.9 - Gastro-esophageal reflux disease without esophagitis, K76.0 - Fatty (change of) liver, not elsewhere classified, N40.0 - Benign prostatic hyperplasia without lower urinary tract symptoms, R73.01 - Impaired fasting glucose, Z91.09 - Other allergy status, other than to drugs and biological substances, Z99.89 - Dependence on other enabling machines and devices Hemoglobin A1c Today R73.01 - Impaired fasting glucose Referrals General Surgery Referral L05.91 - Pilonidal cyst without abscess Coding Level of Care Code Est Pt Level 4 (94673) Complex EM visit Add On G2211 Diagnoses Hypertension, essential I10 Lipid disorder E78.9 Benign prostatic hyperplasia without lower urinary tract symptoms N40.0 Lower urinary tract symptom presence: symptoms absent Chronic GERD K21.9 Fatty liver K76.0 Impaired fasting blood sugar R73.01 Obstructive sleep apnea on CPAP G47.33; Z99.89 Intractable migraine without status migrainosus, unspecified migraine type G43.919 Intractability: intractable Migraine type: unspecified Status migrainosus presence: without status migrainosus Environmental allergies Z91.09 COPD, mild J44.9 Pilonidal cyst L05.91 Additional Codes VINCENZO-7 Assessment Billing - VINCENZO-7 Assessment Tool: VINCENZO-7 Assessment [id number] ([id number])
== END 2024-04-05 12:24 | disposition home or self-care (01) ==
PROVIDERS: PCP Internal Medicine; Visit Provider Internal Medicine
DX: I10 Essential (primary) hypertension (principal); E78.9 Disorder of lipoprotein metabolism, unspecified; N40.0 Benign prostatic hyperplasia without lower urinary tract symptoms; K21.9 Gastro-esophageal reflux disease without esophagitis; K76.0 Fatty (change of) liver, not elsewhere classified; R73.01 Impaired fasting glucose; G47.33 Obstructive sleep apnea (adult) (pediatric); Z99.89 Dependence on other enabling machines and devices; G43.919 Migraine, unspecified, intractable, without status migrainosus; Z91.09 Other allergy status, other than to drugs and biological substances; J44.9 Chronic obstructive pulmonary disease, unspecified; L05.91 Pilonidal cyst without abscess
CPT/HCPCS: 99214; G2211

== ENCOUNTER 2024-04-12 13:39 | Outpatient (REF) | payer MEDICARE, OTHER, SELFPAY | END 2024-04-12 13:40 | disposition home or self-care (01) | LOC: HO.LNP 13:39 | PROVIDERS: PCP Internal Medicine; Referring Provider Internal Medicine; Visit Provider Surgery | DX: D36.10 Benign neoplasm of peripheral nerves and autonomic nervous system, unspecified (principal); L05.91 Pilonidal cyst without abscess | CPT/HCPCS: 11102; 88304; 88305; 99202 ==

== ENCOUNTER 2024-04-12 13:39 | Outpatient (AMB) | payer MEDICARE, OTHER, SELFPAY ==
--- NOTE | 2024-04-12 13:44 | A.OFFVIS_ITS ---
Vital Signs 04/12/24 13:46 Height 5 ft 7 in Weight 279 lb BMI 43.7 BP 131/62 Blood Pressure Location Rt brachial Position Sitting Pulse 67 Intake Visit Reasons: Pilonidal cyst Intake Note: Patient referred by pcp Dr. Salcedo for pilonidal cyst. Present for yrs. Patient c/o: flaring last year, oozing, painful. Strategic Marketing Associate Required: No Accompanied by: Self / Same As Patient Allergies No Known Allergies [No Known Allergies*] Allergy (Verified 04/12/24 13:45) HPI Comments Details: Patient presents with a longstanding history of cleft pilonidal cyst symptoms. He has had pain, swelling, discharge over the last several years time. Because of progression of symptoms, procedure and presents here for further evaluation. Chart was reviewed and patient evaluated. 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 [facility] Medical History Obesity COPD, mild Environmental allergies Migraine headache Obstructive sleep apnea on CPAP Impaired fasting blood sugar Fatty liver Chronic GERD Benign prostatic hyperplasia Lipid disorder Hypertension, essential Surgical History History of colonoscopy Family History Father Hx of CABG Mother No problems noted. Sister ETOH abuse Substance use disorder Maternal Grandfather No problems noted. Maternal Grandmother No problems noted. Paternal Grandfather No problems noted. Paternal Grandmother No problems noted. Brother No problems noted. Daughter No problems noted. Social History Housing: House Alcohol intake: current Alcohol intake frequency: 0-2 drinks per day Patient Tobacco Use Status: Former Tobacco user e-Cigarette/Vaping Use: Never Used service: Yes Current occupational status: retired Cognitive needs: No Hearing needs: No Vision needs: Yes Physical Exam Vital Signs: Last Vital Signs Pulse 67 04/12/24 13:46 BP 131/62 04/12/24 13:46 BMI result Body Mass Index 43.7 Chest Other: Chest breath sounds bilaterally, HS 1 in 2 GI Other: Abdomen is soft, benign Back/Spine/Pelvis Other: cleft area demonstrates chronic inflammatory changes and sinuses. No acute or active infection at this time Assessment & Plan Assessment & Plan (1) Pilonidal cyst: Code(s): L05.91 - Pilonidal cyst without abscess Category: Surgical Plan A lengthy discussion was had with the patient regarding the risks, benefits, and alternatives of excision of pilonidal cyst of cleft. This included but not limited to bleeding, infection, recurrence, numbness, pain, scarring, seroma formation, wound dehiscence and the patient wishes to proceed with the procedure. All questions answered. Arrangements were made for this. Coding Level of Care Code New Pt Level 5 (43764) Diagnoses Pilonidal cyst L05.91
[2024-04-12 13:46] VITALS: BP 131/62; PULSE 67; BMI 43.7
== END 2024-04-12 14:15 | disposition home or self-care (01) ==
PROVIDERS: PCP Internal Medicine; Referring Provider Internal Medicine; Visit Provider Surgery
DX: L05.91 Pilonidal cyst without abscess (principal)
CPT/HCPCS: 11102; 99204

== ENCOUNTER 2024-04-18 14:23 | Outpatient (REF) | payer MEDICARE, OTHER, SELFPAY | END 2024-04-18 14:24 | disposition home or self-care (01) | LOC: HO.HMGCLDS 14:23 | PROVIDERS: PCP Internal Medicine; Visit Provider Physician Assistant | DX: Z12.5 Encounter for screening for malignant neoplasm of prostate (principal); N40.1 Benign prostatic hyperplasia with lower urinary tract symptoms | CPT/HCPCS: 36415; 84153 ==

== ENCOUNTER 2024-04-29 11:29 | Day surgery (SDC) | payer MEDICARE, OTHER, SELFPAY ==
[2024-04-27 12:28] VITALS: BMI 43.7
--- NOTE | 2024-04-27 14:37 | HO.ANESPROP2 ---
Documented by User: Cindy Cruz NP 04/27/24 14:38 HPI - Anesthesia Eval Consult details Narrative: 68yo M for Wide Local Excision Pilonidal Cyst of Caty Cleft PMFSH Active Problems Active Problems: All Active Problems Pilonidal cyst (Acute) Laceration of skin of right lower leg (Acute) Acute bronchitis (Acute) Obstructive sleep apnea on CPAP (Acute) Medicare annual wellness visit, subsequent (Acute) Plantar fasciitis of right foot (Acute) Intractable right heel pain (Acute) Nail, injury by (Acute) Medicare annual wellness visit, initial (Acute) Morbid obesity due to excess calories (Acute) Rash (Acute) Difficulty sleeping (Acute) Obesity (Acute) COPD, mild (Acute) Environmental allergies (Acute) Migraine headache (Acute) Obstructive sleep apnea on CPAP (Acute) Impaired fasting blood sugar (Acute) Fatty liver (Acute) Chronic GERD (Acute) Benign prostatic hyperplasia (Acute) Lipid disorder (Acute) Hypertension, essential (Acute) Past Medical History Medical History Obesity COPD, mild Environmental allergies Migraine headache Obstructive sleep apnea on CPAP Impaired fasting blood sugar Fatty liver Chronic GERD Benign prostatic hyperplasia Lipid disorder Hypertension, essential Family History Family History Father Hx of CABG Mother No problems noted. Sister ETOH abuse Substance use disorder Maternal Grandfather No problems noted. Maternal Grandmother No problems noted. Paternal Grandfather No problems noted. Paternal Grandmother No problems noted. Brother No problems noted. Daughter No problems noted. Surgical History Surgical History History of colonoscopy Social History Social History Housing: House Alcohol intake: current Alcohol intake frequency: 0-2 drinks per day Patient Tobacco Use Status: Former Tobacco user e-Cigarette/Vaping Use: Never Used Advance Directives: No Advance Directives Information Provided: Yes service: Yes Current occupational status: retired Cognitive needs: No Hearing needs: No Vision needs: Yes Meds Allergies Allergy/AdvReac Type Severity Reaction Status Date / Time No Known Allergies Allergy Verified 04/12/24 13:45 [No Known Allergies*] Exam Height,Weight and Vital Signs: Height 5 ft 7 in Weight 126.552 kg Pertinent Lab Results Pertinent Lab Results: Laboratory Tests 01/05/24 10:21 WBC 4.2 L Hgb 15.5 Hct 45.8 Plt Count 250 Sodium 142 Potassium 3.6 Chloride 105 Carbon Dioxide 26 BUN 18 H Creatinine 0.85 Assessment and Plan Assessment Anesthesia Assessment: Chart Reviewed Documented by User: Hossein Huynh MD 04/29/24 15:12 PMFSH Past Medical History Medical History Obesity COPD, mild Environmental allergies Migraine headache Obstructive sleep apnea on CPAP Impaired fasting blood sugar Fatty liver Chronic GERD Benign prostatic hyperplasia Lipid disorder Hypertension, essential Family History Family History Father Hx of CABG Mother No problems noted. Sister ETOH abuse Substance use disorder Maternal Grandfather No problems noted. Maternal Grandmother No problems noted. Paternal Grandfather No problems noted. Paternal Grandmother No problems noted. Brother No problems noted. Daughter No problems noted. Family history of problems with anesthesia: No Surgical History Surgical History History of colonoscopy History of Problems with Anesthesia: No Social History Social History Housing: House Alcohol intake: current Alcohol intake frequency: 0-2 drinks per day Patient Tobacco Use Status: Former Tobacco user e-Cigarette/Vaping Use: Never Used Advance Directives: No Advance Directives Information Provided: Yes service: Yes Current occupational status: retired Cognitive needs: No Hearing needs: No Vision needs: Yes Meds Allergies Allergy/AdvReac Type Severity Reaction Status Date / Time No Known Allergies Allergy Verified 04/12/24 13:45 [No Known Allergies*] Exam Airway Mallampati Class: II TM Dist: <=3cm Neck ROM: Full Loose/Missing/Broken Teeth: No Heart: ok Lungs: ok Assessment and Plan Assessment Anesthesia Assessment: Anesthesia Plan Discussed Final Anesthetic Review Family History of Problems with Anesthesia: No History of Problems with Anesthesia: No NPO: Yes ASA Class: III Final Preanesthetic Review: No Changes in Pt Med Stat, Meds/Allgs Chart Reviewed, Consent Obtained/Reviewed and Anes Risks/Benef Reviewed Patient Risk: Intermediate Procedure Risk: Intermediate Anesthetic Plan Anesthetic Plan: GA and Agree w/ Assess. and Plan Disposition: Standard PACU
--- NOTE | 2024-04-28 12:16 | MHC.SHP ---
Pre-Procedural Eval Section A - 24 Hr Update-Section A only Date of Service: 04/29/24 The patient is an INPATIENT: No Changes since office visit: No Cold of Flu in the past 2 weeks, No New Medical Problems, No Changes in Medication and No Patient answered all questions Section B - Complete if H&P > 30 days Chief Complaint: Pilonidal cyst without abscess Allergies: Allergies Allergy/AdvReac Type Severity Reaction Status Date / Time No Known Allergies Allergy Verified 04/12/24 13:45 [No Known Allergies*] Review of Systems Sugical H&P ROS: Negative: Constitution, Cardiovascular, Respiratory, Neurological, Psychiatric, Hem-Onc, Allergic/Immunologic, Gastrointestinal, Genitourinary, Musculoskeletal, Integumentary, Endocrine and Eyes/Ears/Nose/Throat Exam Surgical H&P Exam: Normal: HEENT, Normal: Heart, Normal: Lungs, Normal: Extremities, Normal: Abdomen, Normal: Skin and Normal: Neurological Plan I have reviewed the history and physical and performed a pertinent physical examination on my patient. No changes have occurred unless specified. Time Spent With Patient Time: Total time managing care of this patient today ____ minutes.
--- NOTE | 2024-04-29 12:59 | ECG_ITS ---
Test Reason : COPD, MERYL, HTN Blood Pressure : / mmHG Vent. Rate : 050 BPM Atrial Rate : 050 BPM P-R Int : 170 ms QRS Dur : 104 ms QT Int : 446 ms P-R-T Axes : 042 -01 015 degrees QTc Int : 406 ms Sinus bradycardia with Premature atrial complexes Otherwise normal ECG When compared with ECG of 25-JAN-2002 08:03, Premature atrial complexes are now Present Referred By: Cindy Cruz Electronically Signed By:TOÑO CURRY
[2024-04-29] MEDS: Lactated Ringers 1,000 ML 100 ML IVCONT (13:23)
[2024-04-29 13:41] VITALS: BP 159/75; PULSE 54; RESP 18; TEMP 36.6; O2SAT 97
--- NOTE | 2024-04-29 14:24 | PC.NURSE ---
report given to vel wilder rn at this time. aware to sign 2 areas on preop record and that anesthesia still needs to see patient.
[2024-04-29 16:05] VITALS: BP 102/69; PULSE 53; RESP 16; TEMP 36.8; O2SAT 95
--- NOTE | 2024-04-29 16:07 | W.PM.OPN ---
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 Patient presents for elective excision. Findings: [] Patient brought to the operating room, placed on operative table in supine position, after an adequate level of LMA anesthesia was induced, patient was placed in the prone dinah-knife position. Caty cleft in very buttock areas were prepped and draped in usual sterile fashion. Using a longitudinal by elliptical incision encompassing all the diseased tissue and sinus tracts which extended to the left of midline, this carried down through skin, subcutaneous tissue, and undermined using Bovie. Specimen sent to pathology. Wound was irrigated, secured hemostasis. It was closed in the following manner; subcutaneous tissue to wound floor to contralateral subcutaneous tissue interrupted 0 Vicryl sutures were initially placed. Skin was closed using interrupted inverted dermal 2-0 Vicryl sutures followed by 0 Prolene simple skin sutures. Sterile dressing was applied. Wound was infiltrated at the beginning at the end with 0.5% Marcaine/1% lidocaine. Sponge, needle, and instrument counts reported correct. Patient tolerated the procedure well and emerged from anesthesia stable condition. EBL minimal
[2024-04-29 16:10] VITALS: BP 109/93; PULSE 54; RESP 16; O2SAT 95
[2024-04-29 16:15] VITALS: BP 135/77; PULSE 58; RESP 16; O2SAT 95
[2024-04-29 16:20] VITALS: BP 139/70; PULSE 46; RESP 16; O2SAT 97
[2024-04-29 16:38] VITALS: BP 133/65; PULSE 56; RESP 16; TEMP 36.6; O2SAT 97
== END 2024-04-29 16:41 | disposition home or self-care (01) ==
PROVIDERS: PCP Internal Medicine; Visit Provider Surgery
PROC: (CPT 11771; principal; 2024-04-29 14:10)
DX: L05.91 Pilonidal cyst without abscess (principal); I10 Essential (primary) hypertension; R73.01 Impaired fasting glucose; J44.9 Chronic obstructive pulmonary disease, unspecified; E66.9 Obesity, unspecified; Z68.41 Body mass index [BMI] 40.0-44.9, adult; G47.33 Obstructive sleep apnea (adult) (pediatric); Z99.89 Dependence on other enabling machines and devices; Z87.891 Personal history of nicotine dependence
CPT/HCPCS: 11771; 88304; 93005; J0690; J1885; J2704; J2795; J3010

== ENCOUNTER → 2024-04-29 11:29 | Outpatient (BNV) | payer MEDICARE, OTHER, SELFPAY | PROVIDERS: PCP Internal Medicine; Visit Provider Surgery | DX: L05.91 Pilonidal cyst without abscess (principal) | CPT/HCPCS: 11771 ==

== ENCOUNTER → 2024-05-10 14:36 | Outpatient (BNVA) | payer MEDICARE, OTHER, SELFPAY | PROVIDERS: PCP Internal Medicine; Visit Provider Surgery ==

== ENCOUNTER 2024-05-18 08:41 | Outpatient (AMB) | payer MEDICARE, OTHER, SELFPAY ==
--- NOTE | 2024-05-18 08:45 | MHC.OFFVIS ---
Intake Visit Reasons: S/P WLE pilonidal cyst Intake Note: Patient here s/p pilonidal cyst on cleft. Reports incision healing well. Patient c/o: minimal yellowish discharge. Taking aspirin for pain. Manager Ambulatory Required: No Accompanied by: Self / Same As Patient Allergies No Known Allergies [No Known Allergies*] Allergy (Verified 05/18/24 08:46) Medication List - Last Reconciled 05/18/24 by Giovanni Ulloa MD albuterol sulfate 90 mcg/actuation (ProAir HFA) 2 puffs inhalation Q4-6H PRN 3 days ezetimibe (Zetia) 10 mg PO DAILY 90 days fluticasone propionate 50 mcg/actuation (Allergy Relief (fluticasone)) 1 spray intranasal DAILY 30 days hydrochlorothiazide 25 mg PO QAM 90 days losartan 50 mg PO ONCE 90 days omeprazole 20 mg PO ONCE PRN 90 days propranolol ER 60 mg PO DAILY rosuvastatin 10 mg PO DAILY tamsulosin 0.4 mg PO DAILY 90 days HPI Comments Details: Patient presents 1. For follow-up status post pilonidal cyst excision 2. Exophytic growth involving left neck he would like to have removed. Patient is otherwise doing well. Uneventful recovery from pilonidal cyst excision. ON LICENSE OF [facility] Medical History (Updated 05/18/24 @ 09:36 by Giovanni Ulloa MD) Pilonidal cyst (04/29/24) Obesity COPD, mild Environmental allergies Migraine headache Obstructive sleep apnea on CPAP Impaired fasting blood sugar Fatty liver Chronic GERD Benign prostatic hyperplasia Lipid disorder Hypertension, essential Surgical History History of colonoscopy Family History Father Hx of CABG Mother No problems noted. Sister ETOH abuse Substance use disorder Maternal Grandfather No problems noted. Maternal Grandmother No problems noted. Paternal Grandfather No problems noted. Paternal Grandmother No problems noted. Brother No problems noted. Daughter No problems noted. Social History Housing: House Alcohol intake: current Alcohol intake frequency: 0-2 drinks per day Patient Tobacco Use Status: Former Tobacco user e-Cigarette/Vaping Use: Never Used service: Yes Current occupational status: retired Cognitive needs: No Hearing needs: No Vision needs: Yes Physical Exam HEENT Other: Roughly 2 x 1 cm exophytic benign-appearing left mid neck skin growth. Back/Spine/Pelvis Other: Caty cleft pilonidal wound healing uneventfully. Sutures removed without incident. Some stitch granuloma , otherwise benign-appearing incision. Office Procedures Excision Details: Risks, benefits, alternatives of excision of left neck soft tissue mass/growth were reviewed the patient included but not limited to bleeding, infection, recurrence, numbness, pain, scarring the patient wished to proceed. All questions answered. Consent site. After appropriate positioning, patient underwent 1% lidocaine and Betadine prep and uneventfully tangential excision of left neck lesion. (size and H&P) specimen sent to pathology. Wound base cauterized with silver nitrate followed by bacitracin sterile dressing. Patient tolerated procedure well 35126-Ujbvzwzv scalp/neck/hands/feet/genitalia 1.1cm-2cm Procedure code (CPT) selection complete Office Meds lidocaine 1 %-epinephrine 1:100,000 injection solution Performing Provider: Giovanni Ulloa MD Performing Location: [facility] Administered by: Giovanni Ulloa MD on 05/18/24 09:37 Dose Route Admin Location Dispensed Lot Number Expiration Date [facility] [place] [facility] [employer] 10 mL Infiltration 10 mL Assessment & Plan Assessment & Plan (1) Mass in neck: Code(s): R22.1 - Localized swelling, mass and lump, neck Category: Medical Plan: See below (2) Pilonidal cyst: Code(s): L05.91 - Pilonidal cyst without abscess Category: Surgical Plan: Patient has been given local instructions including avoiding strenuous activities were regarding his pilonidal cyst excision. He has been given local instructions regarding local wound care for his left neck lesion excision including bacitracin each day, may shower in 2 days, and patient otherwise follow-up p.r.n.. All questions answered. Orders: Orders Surgical Today D22.9 - Melanocytic nevi, unspecified AMB Excision Today R22.1 - Localized swelling, mass and lump, neck Medications: New lidocaine-epinephrine 1 %-1:100,000 10 mL Infiltration ONCE 30 mL 0RF R22.1 - Localized swelling, mass and lump, neck Coding Level of Care Code Est Pt Level 4 (99325) Global (34863) Diagnoses Mass in neck R22.1 Pilonidal cyst L05.91 CPT Codes Scalp/Neck/Hands/Feet/Genetalia - CPT: 96244-Elcbjudw scalp/neck/hands/feet/genitalia 1.1cm-2cm ([id number])
== END 2024-05-18 09:20 | disposition home or self-care (01) ==
LOC: HO.HGS 08:41
PROVIDERS: PCP Internal Medicine; Visit Provider Surgery
DX: R22.1 Localized swelling, mass and lump, neck (principal); L05.91 Pilonidal cyst without abscess; D22.4 Melanocytic nevi of scalp and neck
CPT/HCPCS: 11102; 99024

== ENCOUNTER 2024-05-18 08:41 | Outpatient (REF) | payer MEDICARE, OTHER, SELFPAY | END 2024-05-18 08:42 | disposition home or self-care (01) | LOC: HO.LNP 08:41 | PROVIDERS: PCP Internal Medicine; Visit Provider Surgery | DX: R22.1 Localized swelling, mass and lump, neck (principal); Z48.817 Encounter for surgical aftercare following surgery on the skin and subcutaneous tissue; Z87.2 Personal history of diseases of the skin and subcutaneous tissue | CPT/HCPCS: 11102; 88304; 88305; 99212 ==

== ENCOUNTER 2024-06-15 11:32 | Outpatient (AMB) | payer MEDICARE, OTHER, SELFPAY ==
--- NOTE | 2024-06-15 11:48 | MHC.OFFVIS ---
Vital Signs 06/15/24 11:49 Height 5 ft 11 in Weight 271 lb BMI 37.8 BP 132/88 Blood Pressure Location Rt brachial Position Sitting Pulse 68 Intake Visit Reasons: pilonodial cyst still leaking Intake Note: Patient scheduled c/o oozing from pilonidal cyst surgical site. HX: pilonidal cyst repair on 04-29-2024. Patient c/o: mild clear to yellowish discharge. Denies bleeding. 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 He has had some clear drainage from the most inferior part of the incision and presents here for further evaluation. Otherwise doing well. [facility] Medical History (Updated 05/18/24 @ 09:36 by Giovanni Ulloa MD) Pilonidal cyst (04/29/24) Obesity COPD, mild Environmental allergies Migraine headache Obstructive sleep apnea on CPAP Impaired fasting blood sugar Fatty liver Chronic GERD Benign prostatic hyperplasia Lipid disorder Hypertension, essential Surgical History History of colonoscopy Family History Father Hx of CABG Mother No problems noted. Sister ETOH abuse Substance use disorder Maternal Grandfather No problems noted. Maternal Grandmother No problems noted. Paternal Grandfather No problems noted. Paternal Grandmother No problems noted. Brother No problems noted. Daughter No problems noted. Social History Housing: House Alcohol intake: current Alcohol intake frequency: 0-2 drinks per day Patient Tobacco Use Status: Former Tobacco user e-Cigarette/Vaping Use: Never Used service: Yes Current occupational status: retired Cognitive needs: No Hearing needs: No Vision needs: Yes Physical Exam Vital Signs: Last Vital Signs Pulse 68 06/15/24 11:49 BP 132/88 06/15/24 11:49 BMI result Body Mass Index 37.8 Back/Spine/Pelvis Other: Majority of incision is completely well healed. The most inferior part has some mild separation was sent from exuberant granulating tissue which was cauterized with silver nitrate and dressing applied. Assessment & Plan Assessment & Plan (1) Postop check: Code(s): Z09 - Encounter for follow-up examination after completed treatment for conditions other than malignant neoplasm Category: Surgical Plan Patient was been given local instructions including occasional dressing changes but there was no evidence of any infection or wound dehiscence. Patient was reassured. He will otherwise follow-up p.r.n.. Coding Level of Care Code Global (09186) Diagnoses Postop check Z09
[2024-06-15 11:49] VITALS: BP 132/88; PULSE 68; BMI 37.8
== END 2024-06-15 11:50 | disposition home or self-care (01) ==
PROVIDERS: PCP Internal Medicine; Visit Provider Surgery
DX: Z09 Encounter for follow-up examination after completed treatment for conditions other than malignant neoplasm (principal)
CPT/HCPCS: 99024

== ENCOUNTER → 2024-06-15 11:32 | Outpatient (BNVA) | payer MEDICARE, OTHER, SELFPAY | PROVIDERS: PCP Internal Medicine; Visit Provider Surgery | DX: Z09 Encounter for follow-up examination after completed treatment for conditions other than malignant neoplasm (principal) | CPT/HCPCS: 99212 ==

== ENCOUNTER 2024-07-04 07:56 | Outpatient (REF) | payer MEDICARE, OTHER, SELFPAY ==
[2024-07-04 10:07] LABS: MANUAL DIFF FLAG NO
[2024-07-04 10:17] LABS: Basophils Absolute Auto 0.1 X10*3/uL (0.0-0.2); Basophils Percent Auto 1.2 % (0-2); Eosinophils Absolute Auto 0.2 X10*3/uL (0.0-0.4); Eosinophils Percent Auto 3.8 % (0-4); Hematocrit 43.5 % (42.0-52.0); Imm Gran Abs Auto 0.01 X10*3/uL (0.00-0.03); Imm Gran Pct Auto 0.2 % (0.0-0.4); Lymphocytes Absolute Auto 1.3 X10*3/uL (1.2-4.9); Lymphocytes Percent Auto 29.7 % (20-40); Mean Corpuscular HGB Conc 34.5 g/dl (31.0-36.0); Mean Corpuscular Hemoglobin 28.5 pg (27.0-33.0); Mean Corpuscular Volume 82.5 fL (80.0-98.0); Mean Platelet Volume 8.2 fL (9.4-12.4); Monocytes Absolute Auto 0.4 X10*3/uL (0.1-1.2); Monocytes Percent Auto 9.5 % (2-11); Neutrophils Absolute Auto 2.3 x10*3/uL (2.0-8.3); Neutrophils Percent Auto 55.6 % (45-73); Platelet Count 218 X10*3/uL (160-400); Red Blood Count 5.27 X10*6/uL (4.60-5.80); White Blood Count 4.2 X10*3/uL (4.8-10.8)
[2024-07-04 10:41] LABS: Alanine Aminotransferase 67 U/L (0-40); Albumin Level 4.2 g/dL (3.5-5.0); Alkaline Phosphatase 61 U/L (39-117); Anion Gap 12 (12-20); Aspartate Amino Transferase 38 U/L (5-37); Bilirubin Total 0.6 mg/dL (0.0-1.0); Blood Urea Nitrogen 15 mg/dL (9-16); Calcium 9.6 mg/dL (8.4-10.2); Carbon Dioxide 27 mmol/L (22-29); Chloride 105 mmol/L (96-108); Cholesterol 159 mg/dL (<200); Estimated Glomerular Filt Rate > 60; Glucose Fasting 108 mg/dL (60-99); HDL Cholesterol 36 mg/dL (>40); LDL Cholesterol Calculated 98 mg/dL (<100); Potassium 4.1 mmol/L (3.3-5.1); Sodium 140 mmol/L (135-145); Total Protein 6.9 g/dL (6.5-8.0); Triglycerides 125 mg/dL (<150)
[2024-07-04 10:50] LABS: Estimated Average Glucose 111 mg/dL; Hemoglobin A1C 145.4044 umol/L; Hemoglobin A1c % 5.5 % (<6.0); Total Hemoglobin (HGBA1C) 3919.7064 umol/L
== END 2024-07-04 07:57 | disposition home or self-care (01) ==
LOC: HO.HMGCLDS 07:56
PROVIDERS: PCP Internal Medicine; Visit Provider Internal Medicine
DX: I10 Essential (primary) hypertension (principal); E78.9 Disorder of lipoprotein metabolism, unspecified; N40.0 Benign prostatic hyperplasia without lower urinary tract symptoms; K21.9 Gastro-esophageal reflux disease without esophagitis; K76.0 Fatty (change of) liver, not elsewhere classified; R73.01 Impaired fasting glucose; G47.33 Obstructive sleep apnea (adult) (pediatric); Z99.89 Dependence on other enabling machines and devices; G43.919 Migraine, unspecified, intractable, without status migrainosus; Z91.09 Other allergy status, other than to drugs and biological substances; J44.9 Chronic obstructive pulmonary disease, unspecified
CPT/HCPCS: 36415; 80053; 80061; 83036; 85025

== ENCOUNTER 2024-07-12 08:43 | Outpatient (AMB) | payer MEDICARE, OTHER, SELFPAY ==
[2024-07-12 08:48] VITALS: BP 142/80; PULSE 64; O2SAT 96; BMI 39.6
--- NOTE | 2024-07-12 08:48 | A.OFFVIS_ITS ---
Intake Vital Signs 07/12/24 08:48 Height 5 ft 11 in Weight 284 lb 4 oz BMI 39.6 BP 142/80 H Blood Pressure Location Lt brachial Position Sitting Pulse 64 Pulse Source Pulse Oximeter Pulse Oximetry (%) 96 Oxygen Delivery Method Room Air Intake Visit Reasons: [facility] G0439 Allergies No Known Allergies [No Known Allergies*] Allergy (Verified 07/12/24 08:52) Medication List - Last Reconciled 07/12/24 by Amalia Salcedo MD albuterol sulfate 90 mcg/actuation (ProAir HFA) 2 puffs inhalation Q4-6H PRN 3 days ezetimibe (Zetia) 10 mg PO DAILY 90 days fluticasone propionate 50 mcg/actuation (Allergy Relief (fluticasone)) 1 spray intranasal DAILY 30 days hydrochlorothiazide 25 mg PO QAM 90 days losartan 50 mg PO ONCE 90 days omeprazole 20 mg PO ONCE PRN 90 days propranolol ER 60 mg PO DAILY rosuvastatin 10 mg PO DAILY tamsulosin 0.4 mg PO DAILY 90 days Do you need a note to return to daycare/school/sports/work: No HPI [facility] G0439 HPI Details Patient is 68-year-old male came in today for his regular follow-up visit His blood pressure is running high today Patient says that he did a lot of yd work and his legs were sore So he took 800 mg of ibuprofen yesterday He did brought in his own blood pressure monitor which shows the same reading patient is to continue hydrochlorothiazide 25 mg and losartan 50 mg once a day, patient is tolerating medications no side effects. Lipid disorder : LDL is stable with rosuvastatin 10 mg and Zetia.? Mild elevation of LFT however stable but were elevated last visit due to weight gain Chronic GERD, patient is on omeprazole 20 mg b.i.d. Allergies are stable Headache is stable taking propranolol 60 mg once a day. 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 Ocampo as medicaid eligibility specialist, sleep apnea and CPAP management through medicaid eligibility specialist Impaired fasting sugar: We are monitoring it Elevated BMI, patient is having difficulty losing weight He would like to be started on semaglutide injections, side effect reviewed with the patient I have sent a script If his insurance covered it he will give us a call so we can set him up with a nurse to teach him how to administer the medication Follow-up 4 months HPI Comments History of Present Illness Details AWV Medical/social history reviewed Past medical history reviewed [place] of care / care team list updated Surgical/ hospitalization history reviewed Current medications including OTC and supplements reviewed Family history reviewed Tobacco controlled form updated Alcohol use form updated Illicit drug use in social history reviewed Current diagnosis of depression ?screening updated Appropriate PHQ 2/PHQ-9 completed . Vital signs reviewed Alcohol tobacco drug use reviewed and discussed . MMSE completed . ? Fall risk: ?Assessed Fall history: ?None Have you had any falls with injury in the past year?? No Have you had 2 or more falls in the past year?? No Fall risk assessment completed Home safety discussed with the patient Functional ability assessed and discussed and documented Activities of daily living reviewed and appropriate actions taken . HRA filled out by the patient and reviewed by provider and scanned . Appropriate written screening schedule established . Any health advise needed provided . Advance care planning discussed with the patient , necessary paperwork filled Examination IPPE/AWE: Balance intact Romberg intact Tandem walk intact walk-in turn intact rise from sit to stand intact . ?Hearing ?whisper test pass . Medication list reviewed, patient is stable on medications All other providers patient is seeing discussed and noted . [facility] Medical History Pilonidal cyst (04/29/24) Obesity COPD, mild Environmental allergies Migraine headache Obstructive sleep apnea on CPAP Impaired fasting blood sugar Fatty liver Chronic GERD Benign prostatic hyperplasia Lipid disorder Hypertension, essential Surgical History History of colonoscopy Family History Father Hx of CABG Mother No problems noted. Sister ETOH abuse Substance use disorder Maternal Grandfather No problems noted. Maternal Grandmother No problems noted. Paternal Grandfather No problems noted. Paternal Grandmother No problems noted. Brother No problems noted. Daughter No problems noted. Social History Housing: House Alcohol intake: current Alcohol intake frequency: 0-2 drinks per day Patient Tobacco Use Status: Former Tobacco user e-Cigarette/Vaping Use: Never Used service: Yes Current occupational status: retired Cognitive needs: No Hearing needs: No Vision needs: Yes Questionnaire Medicare Wellness Checkup What [age] 65-69 What gender do you identify with?: male During the past 4 weeks, how much have you been bothered by emotional problems such as feeling anxious, depressed, irritable, sad or downhearted, and blue?: not at all During the past 4 weeks, has your physical & emotional health limited your social activities with family, friends, neighbors, or groups?: not at all During the past 4 weeks, how much bodily pain have you generally had?: very mild pain During the past 4 weeks, was someone available to help you if you needed & wanted help?: no, not at all During the past 4 weeks, what was the hardest physical activity you could do for at least 2 minutes?: moderate Can you get to places out of walking distance without help? (For eg., can you travel alone on buses, taxis or drive your car?): Yes Can you go shopping for groceries or clothes without someone's help?: Yes Can you prepare your own meals?: Yes Can you do your housework without help?: Yes Because of any health problems, do you need the help of another person with your personal care needs such as eating, bathing, dressing or getting around the house?: No Can you handle your own money without help?: Yes During the past 4 weeks, how would you rate your health in general?: very good During the past 4 weeks how have things been going for you?: pretty well Are you having difficulties driving your car?: no Do you always fasten your seat belt when you are in a car?: yes, usually During past 4 weeks, have you been bothered by the following: never: Falling or dizzy when standing up, Sexual problems?, Trouble eating well?, Teeth or denture problems? and Problems using the telephone? and seldom: Tiredness or fatigue? Have you fallen 2 or more times in the past year?: No Are you afraid of falling?: No Are you a smoker?: no During the past 4 weeks, how many drinks of wine, beer, or other alcoholic beverages did you have?: 1 drink or less per week Do you exercise for about 20 minutes 3 or more times a week?: yes, most of the time Have you been given information to help with the following?: no: Hazards in your house that might hurt you? and no: Keeping track of your medications? How often do you have trouble taking medicines the way you have been told to take them?: I always take medicine as prescribed How confident are you that you can control & manage most of your health problems?: very confident What is your race?: White Mini Mental State Exam (MMSE) Orientation What is the (year) (season) (date) (day) (month)?: year, season, date, day and month Where are we (state) (county) (town or city) (hospital) (floor)?: state, county, town or city, hospital/clinic and floor Score Score: 10 Activity of Daily Living Bathing - sponge bath, tub bath or shower: receives no assistance (gets in/out by self, if usual bathing means Dressing - getting clothes from closets & drawers, including inner/outer garments & fasteners.: gets clothes & gets completely dressed without help Toileting - going to the 'toilet room' for urine/bowel elimination & cleaning self/arranging clothes: goes to toilet room, cleans self, arranges clothes without help Transfer: moves in & out of bed and chair without help (may use support object) Continence: controls urination/bowel movements completely by self Feeding: feeds self without help Total Score: 0 Information obtained from: patient Using telephone: independent Traveling: independent Shopping: independent Preparing meals: independent Housework: independent Taking medicine: independent Managing money: independent PHQ-9 Over the last 2 weeks, how often have you been bothered by any of the following problems? 1. Little interest or pleasure in doing things: not at all 2. Feeling down, depressed, or hopeless: not at all 3. Trouble falling or staying asleep, or sleeping too much: not at all 4. Feeling tired or having little energy: not at all 5. Poor appetite or overeating: not at all 6. Feeling bad about yourself - or that you are a failure or have let yourself or your family down: not at all 7. Trouble concentrating on things, such as reading the newspaper or watching television: not at all 8. Moving or speaking so slowly that other people could have noticed. Or the opposite - being so fidgety or restless that you have been moving around a lot more than usual: not at all 9. Thoughts that you would be better off or of hurting yourself in some way: not at all Total score: 0 Depression Screening Interpretation: Negative Depression Screening Done: Yes 74513 - PHQ-9 Billing: Yes Source: Developed by Drs. Jasvir Camarillo, Cindy Weiner, Flaco Chance and colleagues, with an educational maricarmen from [employer]. Review of Systems Const Denies chills and Denies fever(s) ENT Denies epistaxis and Denies nasal discharge Card Denies chest pain Resp Denies chest congestion, Denies cough and Denies hemoptysis GI Denies diarrhea and Denies nausea Skin/Breast Denies rash Neuro Reports no additional complaints Psych Reports no additional complaints Endo Reports no additional complaints Physical Exam Vital Signs: Last Vital Signs Pulse 64 07/12/24 08:48 BP 142/80 H 07/12/24 08:48 Pulse Ox 96 07/12/24 08:48 Oxygen Delivery Method Room Air 07/12/24 08:48 BMI result Body Mass Index 39.6 Const General: cooperative, comfortable and no acute distress Orientation/consciousness: patient oriented x3 HEENT Head: Yes normocephalic Eyes General: appearance normal, both eyes and all related structures Neck Other: Supple Neck: Yes supple Resp Effort & Inspection: normal respiratory effort, no cough and no stridor Cardio Rhythm: regular rhythm Heart sounds: S1 normal heart sound present and S2 normal heart sound present Skin General skin exam: turgor normal Neuro Other: Motor sensory intact General: patient oriented x3, tone normal and moves all extremities Extrem Other: No lower extremity swelling. Right lower extremity: no edema Left lower extremity: no edema Psych Other: Normal effect, speech clear Assessment & Plan Assessment & Plan (1) Medicare annual wellness visit, subsequent: Code(s): Z00.00 - Encounter for general adult medical examination without abnormal findings (2) Hypertension, essential: Code(s): I10 - Essential (primary) hypertension (3) Lipid disorder: Code(s): E78.9 - Disorder of lipoprotein metabolism, unspecified (4) Chronic GERD: Code(s): K21.9 - Gastro-esophageal reflux disease without esophagitis (5) Fatty liver: Code(s): K76.0 - Fatty (change of) liver, not elsewhere classified (6) Migraine headache: Code(s): G43.909 - Migraine, unspecified, not intractable, without status migrainosus Qualifiers: Intractability: intractable Migraine type: unspecified Status migr ainosus presence: without status migrainosus Qualified Code(s): G43.919 - Migraine, unspecified, intractable, without status migrainosus (7) Environmental allergies: Code(s): Z91.09 - Other allergy status, other than to drugs and biological substances (8) COPD, mild: Code(s): J44.9 - Chronic obstructive pulmonary disease, unspecified (9) Morbid obesity due to excess calories: Code(s): E66.01 - Morbid (severe) obesity due to excess calories Plan Patient is 68-year-old male came in today for his regular follow-up visit His blood pressure is running high today Patient says that he did a lot of yd work and his legs were sore So he took 800 mg of ibuprofen yesterday He did brought in his own blood pressure monitor which shows the same reading patient is to continue hydrochlorothiazide 25 mg and losartan 50 mg once a day, patient is tolerating medications no side effects. Lipid disorder : LDL is stable with rosuvastatin 10 mg and Zetia.? Mild elevation of LFT however stable but were elevated last visit due to weight gain Chronic GERD, patient is on omeprazole 20 mg b.i.d. Allergies are stable Headache is stable taking propranolol 60 mg once a day. 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 Ocampo as medicaid eligibility specialist, sleep apnea and CPAP management through medicaid eligibility specialist Impaired fasting sugar: We are monitoring it Elevated BMI, patient is having difficulty losing weight He would like to be started on semaglutide injections, side effect reviewed with the patient I have sent a script If his insurance covered it he will give us a call so we can set him up with a nurse to teach him how to administer the medication Follow-up 4 months Orders: Orders Complete Blood Count Auto Diff Today E66.01 - Morbid (severe) obesity due to excess calories, E78.9 - Disorder of lipoprotein metabolism, unspecified, G43.919 - Migraine, unspecified, intractable, without status migrainosus, I10 - Essential (primary) hypertension, J44.9 - Chronic obstructive pulmonary disease, unspecified, K21.9 - Gastro-esophageal reflux disease without esophagitis, K76.0 - Fatty (change of) liver, not elsewhere classified, Z91.09 - Other allergy status, other than to drugs and biological substances Comprehensive [place]. Panel Fast Today E66.01 - Morbid (severe) obesity due to excess calories, E78.9 - Disorder of lipoprotein metabolism, unspecified, G43.919 - Migraine, unspecified, intractable, without status migrainosus, I10 - Essential (primary) hypertension, J44.9 - Chronic obstructive pulmonary disease, unspecified, K21.9 - Gastro-esophageal reflux disease without esophagitis, K76.0 - Fatty (change of) liver, not elsewhere classified, Z91.09 - Other allergy status, other than to drugs and biological substances Amylase Today E66.01 - Morbid (severe) obesity due to excess calories, E78.9 - Disorder of lipoprotein metabolism, unspecified, G43.919 - Migraine, un specified, intractable, without status migrainosus, I10 - Essential (primary) hypertension, J44.9 - Chronic obstructive pulmonary disease, unspecified, K21.9 - Gastro-esophageal reflux disease without esophagitis, K76.0 - Fatty (change of) liver, not elsewhere classified, Z91.09 - Other allergy status, other than to drugs and biological substances Lipase Today E66.01 - Morbid (severe) obesity due to excess calories, E78.9 - Disorder of lipoprotein metabolism, unspecified, G43.919 - Migraine, unspecified, intractable, without status migrainosus, I10 - Essential (primary) hypertension, J44.9 - Chronic obstructive pulmonary disease, unspecified, K21.9 - Gastro-esophageal reflux disease without esophagitis, K76.0 - Fatty (change of) liver, not elsewhere classified, Z91.09 - Other allergy status, other than to drugs and biological substances Hemoglobin A1c Today E66.01 - Morbid (severe) obesity due to excess calories, E78.9 - Disorder of lipoprotein metabolism, unspecified, G43.919 - Migraine, unspecified, intractable, without status migrainosus, I10 - Essential (primary) hypertension, J44.9 - Chronic obstructive pulmonary disease, unspecified, K21.9 - Gastro-esophageal reflux disease without esophagitis, K76.0 - Fatty (change of) liver, not elsewhere classified, Z91.09 - Other allergy status, other than to drugs and biological substances Medications: New Wegovy (semaglutide (weight loss)) administer weeks 1 through 4 of therapy 0.25 mg (0.5 mL) subcut QWEEK 2 mL 1RF NS Quality Reporting (2019) Depression/Bipolar (159/160/161/177) PHQ-9: Total score: 0 Coding Level of Care Code Medicare Subsequent (G0439) Est Pt Level 4 (04372) Diagnoses Medicare annual wellness visit, subsequent Z00.00 Hypertension, essential I10 Lipid disorder E78.9 Chronic GERD K21.9 Fatty liver K76.0 Intractable migraine without status migrainosus, unspecified migraine type G43.919 Intractability: intractable Migraine type: unspecified Status migrainosus presence: without status migrainosus Environmental allergies Z91.09 COPD, mild J44.9 Morbid obesity due to excess calories E66.01 CPT Codes Advance Care Planning - Advance Care Planning discussion: On file, no changes ([id number]) Additional Codes PHQ-9 - 36380 - PHQ-9 Billing: Yes ([id number]) Advance Care Planning Advance Care Planning discussion: On file, no changes
== END 2024-07-12 09:33 | disposition home or self-care (01) ==
PROVIDERS: PCP Internal Medicine; Visit Provider Internal Medicine
DX: Z00.00 Encounter for general adult medical examination without abnormal findings (principal); J44.9 Chronic obstructive pulmonary disease, unspecified; E66.01 Morbid (severe) obesity due to excess calories; Z68.39 Body mass index [BMI] 39.0-39.9, adult; I10 Essential (primary) hypertension; E78.9 Disorder of lipoprotein metabolism, unspecified; K21.9 Gastro-esophageal reflux disease without esophagitis; K76.0 Fatty (change of) liver, not elsewhere classified; G43.919 Migraine, unspecified, intractable, without status migrainosus; Z91.09 Other allergy status, other than to drugs and biological substances

== ENCOUNTER → 2024-07-12 08:43 | Outpatient (BNVA) | payer MEDICARE, OTHER, SELFPAY | PROVIDERS: PCP Internal Medicine; Visit Provider Internal Medicine | DX: Z00.00 Encounter for general adult medical examination without abnormal findings (principal); I10 Essential (primary) hypertension; E78.9 Disorder of lipoprotein metabolism, unspecified; K21.9 Gastro-esophageal reflux disease without esophagitis; K76.0 Fatty (change of) liver, not elsewhere classified; G43.919 Migraine, unspecified, intractable, without status migrainosus; J44.9 Chronic obstructive pulmonary disease, unspecified; E66.01 Morbid (severe) obesity due to excess calories; Z68.39 Body mass index [BMI] 39.0-39.9, adult; Z91.09 Other allergy status, other than to drugs and biological substances; Z71.3 Dietary counseling and surveillance | CPT/HCPCS: 96127; 99212 ==

== ENCOUNTER 2024-09-20 12:55 | Outpatient (AMB) | payer MEDICARE, OTHER, SELFPAY ==
--- NOTE | 2024-09-20 13:07 | AM.OFFWIN_ITS ---
Intake Vital Signs 09/20/24 13:09 Height 5 ft 11 in Weight 286 lb 4 oz BMI 39.9 BP 118/84 Blood Pressure Location Lt brachial Position Sitting Pulse 55 Pulse Source Pulse Oximeter Temp 97.8 F Temp Source Oral Pulse Oximetry (%) 98 Oxygen Delivery Method Room Air Intake Visit Reasons: EP-upset stomach and dizziness Intake Note: Pt presents to the office today for c/o upset stomach x4 days and dizziness x1 day. Pt states he is also having issues with constipation for a while and had red blood in his stool last week. Patient Tobacco Use Status: Former Tobacco user Allergies No Known Allergies [No Known Allergies*] Allergy (Verified 09/20/24 13:11) HPI HPI Comments History of Present Illness Details History of Present Illness - The patient is a 68-year-old male pres enting with gastrointestinal discomfort. - Reported minor rectal bleeding with sm all spot of blood observed in stool alongside chronic constipation. - Resolved minor bleeding after temporar y cessation of stool softeners, though constipation persists. Added fiber gummies to diet. - Mentioned dizziness experienced primar carol uesterday, with recent recovery. - Chronic head congestion managed with r egular allergy medication. - Described mild nausea coinciding with an upset stomach but without substantial pain. - Constipation management involves exces sive straining. Physical Exam General: Cooperative, healthy appearing, comfortable, no acute distress and well developed Orientation: Patient oriented x3 Limitations: No limitations Head: Normal to inspection Ears: Fluid present bilat TM's Nose: Normal external nose present Face and sinus: Normal facial exam, no sinus pain, Eyes: Appearance normal, both eyes and all related structures Neck: Normal visual inspection and Yes full ROM Respiratory: Normal respiratory effort and able to speak in complete sentences. Skin: No rashes or lesions noted Neuro: Patient oriented x3 Extremities: Normal to inspection [facility] Medical History Pilonidal cyst (04/29/24) Obesity COPD, mild Environmental allergies Migraine headache Obstructive sleep apnea on CPAP Impaired fasting blood sugar Fatty liver Chronic GERD Benign prostatic hyperplasia Lipid disorder Hypertension, essential Surgical History History of colonoscopy Family History Father Hx of CABG Mother No problems noted. Sister ETOH abuse Substance use disorder Maternal Grandfather No problems noted. Maternal Grandmother No problems noted. Paternal Grandfather No problems noted. Paternal Grandmother No problems noted. Brother No problems noted. Daughter No problems noted. Social History Housing: House Alcohol intake: current Alcohol intake frequency: 0-2 drinks per day Patient Tobacco Use Status: Former Tobacco user e-Cigarette/Vaping Use: Never Used service: Yes Current occupational status: retired Cognitive needs: No Hearing needs: No Vision needs: Yes Review of Systems Const All systems reviewed & are unremarkable except as noted in HPI and below Physical Exam Vital Signs: Last Vital Signs Temp 97.8 F 09/20/24 13:09 Pulse 55 09/20/24 13:09 BP 118/84 09/20/24 13:09 Pulse Ox 98 09/20/24 13:09 Oxygen Delivery Method Room Air 09/20/24 13:09 BMI result Body Mass Index 39.9 Assessment & Plan Assessment & Plan (1) Constipation: Code(s): K59.00 - Constipation, unspecified Qualifiers: Constipation type: unspecified constipation type Qualified Code(s): K59.00 - Constipation, unspecified Plan: Plan To manage hemorrhoids and constipation, continuation with stool softeners such as Colace, alongside the addition of Metamucil, was recommended. Inclusion of probiotic intake, for instance via Activia yogurt, was suggested for regular bowel movements. If blood noted in stool, should f/u with PCP, has appt in 3 weeks. Patient was informed and verbally consented to the use of an ambient scribe for clinic note documentation during this visit. (2) Acute effusion of both middle ears: Code(s): H65.193 - Other acute nonsuppurative otitis media, bilateral Plan: Flonase nasal spray use was reinforced twice daily, particularly given the bilateral ear fluid contributing to dizziness. Intranasal application of Flonase should follow the suggested technique targeting the sinuses. Nightly Benadryl use was advised to aid in congestion management. Ondansetron was prescribed to help manage occasional nausea. Current allergy treatments should continue as they address persistent head congestion and contribute to overall symptom management. Medications: New ondansetron 4 mg PO Q8H PRN 10 tabs 0RF nausea and vomiting Coding Level of Care Code Est Pt Level 4 (58835) Diagnoses Constipation, unspecified constipation type K59.00 Constipation type: unspecified constipation type Acute effusion of both middle ears H65.193
[2024-09-20 13:09] VITALS: BP 118/84; PULSE 55; TEMP 36.6; O2SAT 98; BMI 39.9
--- OUTSIDE RECORDS SUMMARY | 2024-09-20 14:33 | XMS_ITS | Clinical Summary ---
Author Organization [facility] ity Address [address] [place] [address] Care Team Providers Care Tie Mill Operator Name Role Phone Unavailable Primary Care Provider Unavailabl e Social History Tobacco Use Types Packs/Day Years Used Date Smoking Tobacco: Never Assessed Sex and Gender Information Value Date Recorded Sex Assigned at Not on file Gender Identity Not on file Sexual Orientation Not on file Plan of Treatment Health Maintenance Due Date Last Done Comments DTaP,Tdap,and Td Vaccines (1 - Tdap) 11/26/1974 Zoster Vaccines (1 of 2) 11/26/2005 Pneumococcal Vaccine: 65+ Ye ars (1 of 1 - PCV) 11/26/2020 COVID-19 Vaccine (1 - 2023-2 5 season) 2024 Influenza Vaccine (#1) 2024 RSV Immunization Patients 60 + Years Old (1 - 1-dose 75+ series) 11/26/2030 HIB Vaccines Aged Out No longer eligi ble based on patient's age to complete this topic HPV Vaccines Aged Out No longer eligi ble based on patient's age to complete this topic Hepatitis A Vaccines Aged Out No long er eligible based on patient's age to complete this topic Hepatitis B Vaccines Aged Out No long er eligible based on patient's age to complete this topic IPV Vaccines Aged Out No longer eligi ble based on patient's age to complete this topic MMR Vaccines Aged Out No longer eligi ble based on patient's age to complete this topic Meningococcal ACWY Vaccine Aged Out N o longer eligible based on patient's age to complete this topic RSV Immunization Patients Un mike 20 months Aged Out No longer eligible b ased on patient's age to complete this topic Varicella Vaccines Aged Out No longer eligible based on patient's age to complete this topic
== END 2024-09-20 13:50 | disposition home or self-care (01) ==
PROVIDERS: PCP Internal Medicine; Visit Provider Physician Assistant
DX: K59.00 Constipation, unspecified (principal); H65.193 Other acute nonsuppurative otitis media, bilateral

== ENCOUNTER → 2024-09-20 12:55 | Outpatient (BNVA) | payer MEDICARE, OTHER, SELFPAY | PROVIDERS: PCP Internal Medicine; Visit Provider Physician Assistant | DX: K59.00 Constipation, unspecified (principal); H65.193 Other acute nonsuppurative otitis media, bilateral | CPT/HCPCS: 99212 ==

== ENCOUNTER 2024-10-11 09:39 | Outpatient (REF) | payer MEDICARE, OTHER, SELFPAY ==
--- NOTE | ~2024-10-11 | XR_ITS ---
CLINICAL HISTORY: M25.561 - Pain in right knee 2 views right knee Comparison: None Findings: There is no fracture or dislocation. There is moderate tricompartmental right knee osteoarthritis. No effusion is seen. Impression: Moderate tricompartmental right knee osteoarthritis. This document has been electronically signed by: Eber Rodriguez MD on 10/12/2024 03:43:35
--- OUTSIDE RECORDS SUMMARY | 2024-10-11 11:15 | XMS_ITS | Clinical Summary ---
Author Organization [facility] ity Address [address] [place] [address] Care Team Providers Care Tax Audit Manager Name Role Phone Unavailable Primary Care Provider [...]
== END 2024-10-11 09:40 | disposition home or self-care (01) ==
LOC: HO.HMGCX 09:39
PROVIDERS: PCP Internal Medicine; Visit Provider Internal Medicine
DX: I10 Essential (primary) hypertension (principal); M25.561 Pain in right knee; E78.9 Disorder of lipoprotein metabolism, unspecified; N40.0 Benign prostatic hyperplasia without lower urinary tract symptoms; K21.9 Gastro-esophageal reflux disease without esophagitis; K76.0 Fatty (change of) liver, not elsewhere classified; R73.01 Impaired fasting glucose; G47.33 Obstructive sleep apnea (adult) (pediatric); G43.919 Migraine, unspecified, intractable, without status migrainosus; E66.01 Morbid (severe) obesity due to excess calories; Z68.39 Body mass index [BMI] 39.0-39.9, adult; Z79.899 Other long term (current) drug therapy; Z91.09 Other allergy status, other than to drugs and biological substances; Z99.89 Dependence on other enabling machines and devices
CPT/HCPCS: 73560; 96127; 99212

== ENCOUNTER 2024-10-11 09:39 | Outpatient (AMB) | payer MEDICARE, OTHER, SELFPAY ==
[2024-10-11 09:41] VITALS: BP 144/72; PULSE 64; TEMP 36.6; O2SAT 98; BMI 39.8
--- NOTE | 2024-10-11 09:41 | A.OFFPC_ITS ---
Vital Signs 10/11/24 09:41 Height 5 ft 11 in Weight 285 lb 6 oz BMI 39.8 BP 144/72 H Blood Pressure Location Rt brachial Position Sitting Pulse 64 Pulse Source Pulse Oximeter Temp 97.9 F Temp Source Oral Pulse Oximetry (%) 98 Oxygen Delivery Method Room Air Intake Visit Reasons: 3m follow up Allergies No Known Allergies [No Known Allergies*] Allergy (Verified 10/11/24 09:41) Medication List - Last Reconciled 10/11/24 by Amalia aSlcedo MD albuterol sulfate 90 mcg/actuation (ProAir HFA) 2 puffs inhalation Q4-6H PRN 3 days ezetimibe (Zetia) 10 mg PO DAILY 90 days fluticasone propionate 50 mcg/actuation (Allergy Relief (fluticasone)) 1 spray intranasal DAILY 30 days hydrochlorothiazide 25 mg PO QAM 90 days losartan 50 mg PO ONCE 90 days omeprazole 20 mg PO ONCE PRN 90 days ondansetron 4 mg PO Q8H PRN propranolol ER 60 mg PO DAILY rosuvastatin 10 mg PO DAILY tamsulosin 0.4 mg PO DAILY 90 days Wegovy (semaglutide (weight loss)) 0.25 mg (0.5 mL) subcut QWEEK NS Tobacco use date assessed: 10/11/24 Fall risk assessment: No Falls in past year Last assessed Fall Risk: 10/11/24 Dental Screening Dental Screen Date: 10/11/24 Did you have a dental visit in the last 12 months?: Yes Did you have a dental problem in the last 6 months where you did not have access to dental care?: No Was dental information given to patient?: Patient has dentist HPI 3m follow up HPI Details Patient is 68-year-old male came in today for his regular follow-up visit He has developed a right knee pain - Onset after activity approximately one month ago, with subsequent severe pain preventing ambulation for a week. - Pain presents intermittently, still devine ffering from discomfort and mild limp. - Utilizes ibuprofen on an as-needed bas is for pain management I have ordered x-ray to further evaluate, management after the report His blood pressure is running high today patient is to continue hydrochlorothiazide 25 mg and losartan 50 mg once a day, patient is tolerating medications no side effects. Lipid disorder : LDL is stable with rosuvastatin 10 mg and Zetia.? Mild elevation of LFT however stable but were elevated last visit due to weight gain Chronic GERD, patient is on omeprazole 20 mg b.i.d. Allergies are stable Headache is stable taking propranolol 60 mg once a day. 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 - General: Denies ankle swelling. - General: No fever no chills - Neurological: No headaches no dizziness - Ear nose throat: No sore throat no hearing difficulty no ear pain - Cardiovascular: No syncope, no chest pain, no palpitations - Gastrointestinal: No nausea vomiting or diarrhea - Endocrine: No polyuria polydipsia no heat intolerance - Genitourinary: No dysuria , no blood in urine Physical Exam General: No acute distress HEENT: No acute findings Neck: Supple Respiratory system: Able to talk in full sentences, no audible wheeze cardiovascular: S1-S2 regular in rate and rhythm, no chest pains Gastrointestinal: No pain Extremities: Right knee pain, possible arthritis, no swelling of ankles, no swelling noted there is no pain with calf palpation Knee range of motion intact HEALTHCARE ACCOUNT MANAGER: Alert awake oriented x3 motor sensory intact Skin: Normal tur[facility] Medical History Pilonidal cyst (04/29/24) Obesity COPD, mild Environmental allergies Migraine headache Obstructive sleep apnea on CPAP Impaired fasting blood sugar Fatty liver Chronic GERD Benign prostatic hyperplasia Lipid disorder Hypertension, essential Surgical History History of colonoscopy Family History Father Hx of CABG Mother No problems noted. Sister ETOH abuse Substance use disorder Maternal Grandfather No problems noted. Maternal Grandmother No problems noted. Paternal Grandfather No problems noted. Paternal Grandmother No problems noted. Brother No problems noted. Daughter No problems noted. Social History Housing: House Alcohol intake: current Alcohol intake frequency: 0-2 drinks per day Patient Tobacco Use Status: Former Tobacco user e-Cigarette/Vaping Use: Never Used service: Yes Current occupational status: retired Cognitive needs: No Hearing needs: No Vision needs: Yes Questionnaire PHQ-9 Over the last 2 weeks, how often have you been bothered by any of the following problems? 1. Little interest or pleasure in doing things: not at all 2. Feeling down, depressed, or hopeless: not at all 3. Trouble falling or staying asleep, or sleeping too much: several days 4. Feeling tired or having little energy: several days 5. Poor appetite or overeating: not at all 6. Feeling bad about yourself - or that you are a failure or have let yourself or your family down: not at all 7. Trouble concentrating on things, such as reading the newspaper or watching television: not at all 8. Moving or speaking so slowly that other people could have noticed. Or the opposite - being so fidgety or restless that you have been moving around a lot more than usual: not at all 9. Thoughts that you would be better off or of hurting yourself in some way: not at all Total score: 2 Depression Screening Interpretation: Negative Depression Screening Done: Yes 23846 - PHQ-9 Billing: Yes Source: Developed by Drs. Jasvir Camarillo, Cindy Weiner, Flaco Chance and colleagues, with an educational maricarmen from [employer]. Thrive Questionnaire Date Thrive assessed: 10/11/24 I am a: Patient What is your living situation today?: I have a steady place to live Within the past 12 months, did the food you bought not last and you didn't have the money to get more?: I choose not to answer this question Within the past 12 months, did you worry whether your food would run out before you got money to buy more?: I choose not to answer this question Do you have trouble paying for medicines?: I choose not to answer this question Do you have trouble getting transportation to medical appointments?: I choose not to answer this question Do you have trouble paying your heating and electricity bill?: I choose not to answer this question Do you have trouble taking care of your child, family member or friend?: I choose not to answer this question Do you have trouble with day-to-day activities such as bathing, preparing meals, shopping, managing finances, etc.?: I choose not to answer this question Are you currently unemployed and looking for a job?: No Are you interested in more education?: No Please select the resources that you would like help with: None Currently or been in a relationship where the following occur: I choose not to answer THRIVE Score: 0 AUDIT C Alcohol Use Questionnaire (AUDIT-C) 1. How often do you have a drink containing alcohol?: 2-4 times a month 2. How many drinks containing alcohol do you have on a typical day when you are drinking?: 1 or 2 3. How often do you have six or more drinks on one occasion?: Never Total Score: 2 Score Reviewed/Action Taken: Yes VINCENZO-7 AMB Questionnaire VINCENZO-7 Date VINCENZO - 7 assessed: 10/11/24 Feeling nervous, anxious, or on edge: 0 = Not at all Not being able to stop or control worryin = Not at all Worrying too much about different things: 0 = Not at all Trouble relaxin = Not at all Being so restless that it is hard to sit still: 0 = Not at all Becoming easily annoyed or irritable: 0 = Not at all Feeling afraid as if something awful might happen: 0 = Not at all Total VINCENZO-7 score (0-4 normal; 5-9 mild; 10-14 moderate; 15-21 severe): 0 Source: Developed by Drs. Jasvir Camarillo, Cindy Weiner, Flaco Chance and colleagues, with an educational maricarmen from [employer]. VINCENZO-7 Assessment Billing VINCENZO-7 Assessment Tool: VINCENZO-7 Assessment 85059 Physical exam (Primary Care) Vital Signs: Last Vital Signs Temp 97.9 F 10/11/24 09:41 Pulse 64 10/11/24 09:41 BP 144/72 H 10/11/24 09:41 Pulse Ox 98 10/11/24 09:41 Oxygen Delivery Method Room Air 10/11/24 09:41 BMI result Body Mass Index 39.8 Tobacco/Smoking Status: Tobacco use Status Tobacco use date assessed 10/11/24 10/11/24 09:41 Patient Tobacco Use Status Former Tobacco user 10/11/24 09:41 e-Cigarette/Vaping Use Never Used 10/11/24 09:41 PHQ-9: PHQ-9 Score PHQ-9: Total score 2 10/11/24 10:07 Depression Screening Interpretation: Negative Thrive Assessment: Date of Thrive Assessment Date Thrive assessed 10/11/24 10/11/24 09:45 Currently or been in a relationship where the following occur: I choose not to answer Coding Level of Care Code Est Pt Level 4 (25964) Complex EM visit Add On G2211 Diagnoses Hypertension, essential I10 Acute pain of right knee M25.561 Chronicity: acute Lipid disorder E78.9 Benign prostatic hyperplasia without lower urinary tract symptoms N40.0 Lower urinary tract symptom presence: symptoms absent Chronic GERD K21.9 Fatty liver K76.0 Impaired fasting blood sugar R73.01 Obstructive sleep apnea on CPAP G47.33; Z99.89 Intractable migraine without status migrainosus, unspecified migraine type G43 .919 Intractability: intractable Migraine type: unspecified Status migrainosus presence: without status migrainosus Environmental allergies Z91.09 Morbid obesity due to excess calories E66.01 Additional Codes VINCENZO-7 Assessment Billing - VINCENZO-7 Assessment Tool: VINCENZO-7 Assessment 59533 ([id number]) PHQ-9 - 05626 - PHQ-9 Billing: Yes ([id number]) Assessment & Plan Assessment & Plan (1) Hypertension, essential: Code(s): I10 - Essential (primary) hypertension Category: Medical (2) Knee pain, right: Code(s): M25.561 - Pain in right knee Category: Medical Qualifiers: Chronicity: acute Qualified Code(s): M25.561 - Pain in right knee (3) Lipid disorder: Code(s): E78.9 - Disorder of lipoprotein metabolism, unspecified Category: Medical (4) Benign prostatic hyperplasia: Code(s): N40.0 - Benign prostatic hyperplasia without lower urinary tract symptoms Category: Medical Qualifiers: Lower urinary tract symptom presence: symptoms absent Qualified Code(s): N40.0 - Benign prostatic hyperplasia without lower urinary tract symptoms (5) Chronic GERD: Code(s): K21.9 - Gastro-esophageal reflux disease without esophagitis Category: Medical (6) Fatty liver: Code(s): K76.0 - Fatty (change of) liver, not elsewhere classified Category: Medical (7) Impaired fasting blood sugar: Code(s): R73.01 - Impaired fasting glucose Category: Medical (8) Obstructive sleep apnea on CPAP: Code(s): G47.33 - Obstructive sleep apnea (adult) (pediatric); Z99.89 - Dependence on other enabling machines and devices Category: Medical (9) Migraine headache: Code(s): G43.909 - Migraine, unspecified, not intractable, without status migrainosus Category: Medical Qualifiers: Intractability: intractable Migraine type: unspecified Status migrainosus presence: without status migrainosus Qualified Code(s): G43.919 - Migraine, unspecified, intractable, without status migrainosus (10) Environmental allergies: Code(s): Z91.09 - Other allergy status, other than to drugs and biological substances Category: Medical (11) Morbid obesity due to excess calories: Code(s): E66.01 - Morbid (severe) obesity due to excess calories Category: Medical Plan Patient is 68-year-old male came in today for his regular follow-up visit He has developed a right knee pain - Onset after activity approximately one month ago, with subsequent severe pain preventing ambulation for a week. - Pain presents intermittently, still suffering from discomfort and mild limp. - Utilizes ibuprofen on an as-needed basis for pain management I have ordered x-ray to further evaluate, management after the report His blood pressure is running high today patient is to continue hydrochlorothiazide 25 mg and losartan 50 mg once a day, patient is tolerating medications no side effects. Lipid disorder : LDL is stable with rosuvastatin 10 mg and Zetia.? Mild elevation of LFT however stable but were elevated last visit due to weight gain Chronic GERD, patient is on omeprazole 20 mg b.i.d. Allergies are stable Headache is stable taking propranolol 60 mg once a day. 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 Ocampo as equipment mechanic specialist, sleep apnea and CPAP management through equipment mechanic specialist Impaired fasting sugar: We are monitoring it Elevated BMI, patient is having difficulty losing weight Semaglutide was not covered under his insurance so I have changed it to Zepboundpatient is to let me know once he picks up the medication Follow-up 3 months Orders: Orders Complete Blood Count Auto Diff Today E66.01 - Morbid (severe) obesity due to excess calories, E78.9 - Disorder of lipoprotein metabolism, unspecified, G43.919 - Migraine, unspecified, intractable, without status migrainosus, G47.33 - Obstructive sleep apnea (adult) (pediatric), I10 - Essential (primary) hypertension, K21.9 - Gastro-esophageal reflux disease without esophagitis, K76.0 - Fatty (change of) liver, not elsewhere classified, N40.0 - Benign prostatic hyperplasia without lower urinary tract symptoms, R73.01 - Impaired fasting glucose, Z91.09 - Other allergy status, other than to drugs and biological substances, Z99.89 - Dependence on other enabling machines and devices Comprehensive [place]. Panel Fast Today E66.01 - Morbid (severe) obesity due to excess calories, E78.9 - Disorder of lipoprotein metabolism, unspecified, G43.919 - Migraine, unspecified, intractable, without status migrainosus, G47.33 - Obstructive sleep apnea (adult) (pediatric), I10 - Essential (primary) h ypertension, K21.9 - Gastro-esophageal reflux disease without esophagitis, K76.0 - Fatty (change of) liver, not elsewhere classified, N40.0 - Benign prostatic hyperplasia without lower urinary tract symptoms, R73.01 - Impaired fasting glucose, Z91.09 - Other allergy status, other than to drugs and biological substances, Z99.89 - Dependence on other enabling machines and devices Lipid Panel Today E66.01 - Morbid (severe) obesity due to excess calories, E78.9 - Disorder of lipoprotein metabolism, unspecified, G43.919 - Migraine, unspecified, intractable, without status migrainosus, G47.33 - Obstructive sleep apnea (adult) (pediatric), I10 - Essential (primary) hypertension, K21.9 - Gastro-esophageal reflux disease without esophagitis, K76.0 - Fatty (change of) liver, not elsewhere classified, N40.0 - Benign prostatic hyperplasia without lower urinary tract symptoms, R73.01 - Impaired fasting glucose, Z91.09 - Other allergy status, other than to drugs and biological substances, Z99.89 - Dependence on other enabling machines and devices XR knee RT 2V Today M25.561 - Pain in right knee Medications: New Zepbound (tirzepatide (weight loss)) for 4 weeks 2.5 mg (0.5 mL) subcut QWEEK 2 mL 0RF NS
--- OUTSIDE RECORDS SUMMARY | 2024-10-11 10:46 | XMS_ITS | Clinical Summary ---
Author Organization [facility] ity Address [address] [place] [address] Care Team Providers Care Catholic Priest Name Role Phone Unavailable Primary Care Provider Unavailabl e Social History Tobacco Use Types Packs/Day Years Used Date Smoking Tobacco: Never Assessed Sex and Gender Information Value Date Recorded Sex Assigned at Not on file Legal Sex Male 1:05 AM EST Gender Identity Not on file Sexual Orientation Not on file Plan of Treatment Health Maintenance Due Date Last Done Comments DTaP,Tdap,and Td Vaccines (1 - Tdap) 11/26/1962 Pneumococcal Vaccine: 50+ Ye ars (1 of 1 - PCV) 11/26/2005 Zoster Vaccines (1 of 2) 11/26/2005 COVID-19 Vaccine ( - 2023-2 5 season) 2024 Influenza Vaccine [...] patient's age to complete this topic Meningococcal B Vacine Aged Out No lo nger eligible based on patient's age to complete this topic RSV Immunization Patients Un mike 20 months Aged Out No longer eligible b ased on patient's age to complete this topic Varicella Vaccines Aged Out No longer eligible based on patient's age to complete this topic
== END 2024-10-11 10:08 | disposition home or self-care (01) ==
PROVIDERS: PCP Internal Medicine; Visit Provider Internal Medicine
DX: I10 Essential (primary) hypertension (principal); M25.561 Pain in right knee; E66.01 Morbid (severe) obesity due to excess calories; Z68.39 Body mass index [BMI] 39.0-39.9, adult; E78.9 Disorder of lipoprotein metabolism, unspecified; N40.0 Benign prostatic hyperplasia without lower urinary tract symptoms; K21.9 Gastro-esophageal reflux disease without esophagitis; K76.0 Fatty (change of) liver, not elsewhere classified; R73.01 Impaired fasting glucose; G47.33 Obstructive sleep apnea (adult) (pediatric); Z99.89 Dependence on other enabling machines and devices; G43.919 Migraine, unspecified, intractable, without status migrainosus; Z91.09 Other allergy status, other than to drugs and biological substances

== ENCOUNTER → 2024-10-11 10:11 | Outpatient (BNV) | payer MEDICARE, OTHER, SELFPAY | PROVIDERS: PCP Internal Medicine; Visit Provider Radiology Diagnostic Radiology | DX: M17.11 Unilateral primary osteoarthritis, right knee (principal) | CPT/HCPCS: 73560 ==

== ENCOUNTER 2024-10-20 08:17 | Outpatient (AMB) | payer MEDICARE, OTHER, SELFPAY ==
--- OUTSIDE RECORDS SUMMARY | 2024-10-20 08:28 | XMS_ITS | Clinical Summary ---
Author Organization [facility] ity Address [address] [place] [address] Care Team Providers Care Brasswind Instrument Repairer Name Role Phone Unavailable Primary Care Provider [...] DTaP,Tdap,and Td Vaccines (1 - Tdap) 11/26/1974 Pneumococcal Vaccine: 50+ Ye ars (1 of [...]
--- NOTE | 2024-10-20 09:54 | MHC.PC.OV ---
Intake Visit Reasons: knee pain management Allergies No Known Allergies [No Known Allergies*] Allergy (Verified 10/11/24 09:41) Medication List - Last Reconciled 10/21/24 by Amalia Salcedo MD albuterol sulfate 90 mcg/actuation (ProAir HFA) 2 puffs inhalation Q4-6H PRN 3 days ezetimibe (Zetia) 10 mg PO DAILY 90 days fluticasone propionate 50 mcg/actuation (Allergy Relief (fluticasone)) 1 spray intranasal DAILY 30 days hydrochlorothiazide 25 mg PO QAM 90 days losartan 50 mg PO ONCE 90 days omeprazole 20 mg PO ONCE PRN 90 days ondansetron 4 mg PO Q8H PRN propranolol ER 60 mg PO DAILY rosuvastatin 10 mg PO DAILY tamsulosin 0.4 mg PO DAILY 90 days Zepbound (tirzepatide (weight loss)) 2.5 mg (0.5 mL) subcut QWEEK NS Tobacco use date assessed: 10/11/24 Fall risk assessment: No Falls in past year Last assessed Fall Risk: 10/20/24 Dental Screening Dental Screen Date: 10/11/24 HPI knee pain management HPI Details This is a telemedicine visit - The patient is a 68-year-old male presenting for evaluation and management of knee osteoarthritis symptoms. - He reports persistent ache rather than sharp pain in the muscles around the knee, especially above and below, exacerbated by activities. - An x-ray revealed advanced degenerative changes consistent with arthritis. - Ibuprofen had been tried for pain relief but was deemed ineffective, leading to consideration of alternative analgesics. - Encouragement for physical movement like walking was provided, with a recommendation for using a knee brace for added support. Problem List - Osteoarthritis of the knee Patient Instructions - You may continue walking if the knee discomfort is tolerable. - Wear a knee brace during walks for additional support. - Try taking Aleve (Naproxen) with breakfast if experiencing discomfort. - Notify me if your pain worsens for further evaluation and potential orthopedic consultation. Review of Systems - General: No fever no chills - Neurological: No headaches no dizziness - Ear nose throat: No sore throat no hearing difficulty no ear pain - Cardiovascular: No syncope, no chest pain, no palpitations - Gastrointestinal: No nausea vomiting or diarrhea - Endocrine: No polyuria polydipsia no heat intolerance - Genitourinary: No dysuria , no blood in urine PFSH Medical History Pilonidal cyst (04/29/24) Obesity COPD, mild Environmental allergies Migraine headache Obstructive sleep apnea on CPAP Impaired fasting blood sugar Fatty liver Chronic GERD Benign prostatic hyperplasia Lipid disorder Hypertension, essential Surgical History History of colonoscopy Family History Father Hx of CABG Mother No problems noted. Sister ETOH abuse Substance use disorder Maternal Grandfather No problems noted. Maternal Grandmother No problems noted. Paternal Grandfather No problems noted. Paternal Grandmother No problems noted. Brother No problems noted. Daughter No problems noted. Social History Housing: House Alcohol intake: current Alcohol intake frequency: 0-2 drinks per day Patient Tobacco Use Status: Former Tobacco user e-Cigarette/Vaping Use: Never Used service: Yes Current occupational status: retired Cognitive needs: No Hearing needs: No Vision needs: Yes Questionnaire Thrive Questionnaire Date Thrive assessed: 10/11/24 I am a: Patient What is your living situation today?: I have a steady place to live Within the past 12 months, did the food you bought not last and you didn't have the money to get more?: I choose not to answer this question Within the past 12 months, did you worry whether your food would run out before you got money to buy more?: I choose not to answer this question Do you have trouble paying for medicines?: I choose not to answer this question Do you have trouble getting transportation to medical appointments?: I choose not to answer this question Do you have trouble paying your heating and electricity bill?: I choose not to answer this question Do you have trouble taking care of your child, family member or friend?: I choose not to answer this question Do you have trouble with day-to-day activities such as bathing, preparing meals, shopping, managing finances, etc.?: I choose not to answer this question Are you currently unemployed and looking for a job?: No Are you interested in more education?: No Please select the resources that you would like help with: None Currently or been in a relationship where the following occur: I choose not to answer THRIVE Score: 0 VINCENZO-7 AMB Questionnaire VINCENZO-7 Date VINCENZO - 7 assessed: 10/11/24 Source: Developed by Drs. Jasvir Camarillo, Cindy Weiner, Flaco Chance and colleagues, with an educational maricarmen from [employer]. Physical exam (Primary Care) Tobacco/Smoking Status: Tobacco use Status Tobacco use date assessed 10/11/24 10/20/24 09:55 Patient Tobacco Use Status Former Tobacco user 10/20/24 09:55 e-Cigarette/Vaping Use Never Used 10/20/24 09:55 Thrive Assessment: Date of Thrive Assessment Date Thrive assessed 10/11/24 10/20/24 09:55 Currently or been in a relationship where the following occur: I choose not to answer Telehealth Telehealth Telehealth Platform: Telephone Location of provider rendering services: practice address Location of patient: address on file Patient Identification confirmed using: Name, : Yes Telehealth method: video (attempted) Patient verbally consented to treatment: Yes Patient verbally consented to billing insurance company: Yes Patient informed of any privacy concerns related to visit: Yes Minutes spent on Phone/Video with Pt.: 13 Coding Level of Care Code Tele Est Pt Level 3 (17905) Diagnoses Acute pain of right knee M25.561 Chronicity: acute Primary osteoarthritis of right knee M17.11 Osteoarthritis type: primary Assessment & Plan Assessment & Plan (1) Knee pain, right: Code(s): M25.561 - Pain in right knee Category: Medical Qualifiers: Chronicity: acute Qualified Code(s): M25.561 - Pain in right knee (2) Osteoarthritis of right knee: Code(s): M17.11 - Unilateral primary osteoarthritis, right knee Category: Medical Qualifiers: Osteoarthritis type: primary Qualified Code(s): M17.11 - Unilateral primary osteoarthritis, right knee Plan - The patient is a 68-year-old male presenting for evaluation and management of knee osteoarthritis symptoms. - He reports persistent ache rather than sharp pain in the muscles around the knee, especially above and below, exacerbated by activities. - An x-ray revealed advanced degenerative changes consistent with arthritis. - Ibuprofen had been tried for pain relief but was deemed ineffective, leading to consideration of alternative analgesics. - Encouragement for physical movement like walking was provided, with a recommendation for using a knee brace for added support. Problem List - Osteoarthritis of the knee
== END 2024-10-20 10:30 | disposition home or self-care (01) ==
LOC: HO.HMCC 08:17
PROVIDERS: PCP Internal Medicine; Visit Provider Internal Medicine
DX: M25.561 Pain in right knee (principal); M17.11 Unilateral primary osteoarthritis, right knee

== ENCOUNTER 2025-01-03 08:20 | Outpatient (REF) | payer MEDICARE, OTHER, SELFPAY ==
--- OUTSIDE RECORDS SUMMARY | 2025-01-03 08:36 | XMS_ITS | Clinical Summary ---
Author Organization [facility] ity Address [address] [place] [address] Care Team Providers Care Slider Assembler Name Role Phone Unavailable Primary Care Provider [...] - 2023-2 5 season) 2024 Influenza Vaccine (Season Ended) 2025 RSV Immunization Adult Patie nts (1 - 1-dose 75+ series) 11/26/2030 HIB [...] age to complete this topic Meningococcal B Vaccine Aged Out No l onger eligible based on patient's age to complete this topic RSV Immunization Patients Un mike 20 months Aged Out No longer eligible b ased on patient's age to complete this topic Varicella Vaccines Aged Out No longer eligible based on patient's age to complete this topic
[2025-01-03 10:29] LABS: MANUAL DIFF FLAG NO
[2025-01-03 10:44] LABS: Estimated Average Glucose 117 mg/dL; Hemoglobin A1C 144.9855 umol/L; Hemoglobin A1c % 5.7 % (<6.0); Total Hemoglobin (HGBA1C) 3784.1609 umol/L
[2025-01-03 10:45] LABS: Basophils Absolute Auto 0.1 X10*3/uL (0.0-0.2); Basophils Percent Auto 1.2 % (0-2); Eosinophils Absolute Auto 0.2 X10*3/uL (0.0-0.4); Hematocrit 44.4 % (42.0-52.0); Hemoglobin 15.1 g/dl (14.0-18.0); Imm Gran Abs Auto 0.02 X10*3/uL (0.00-0.03); Imm Gran Pct Auto 0.4 % (0.0-0.4); Lymphocytes Absolute Auto 1.2 X10*3/uL (1.2-4.9); Lymphocytes Percent Auto 24.4 % (20-40); Mean Corpuscular Hemoglobin 27.6 pg (27.0-33.0); Mean Corpuscular Volume 81.2 fL (80.0-98.0); Monocytes Absolute Auto 0.4 X10*3/uL (0.1-1.2); Monocytes Percent Auto 7.9 % (2-11); Neutrophils Absolute Auto 3.2 x10*3/uL (2.0-8.3); Neutrophils Percent Auto 63.1 % (45-73); Platelet Count 216 X10*3/uL (160-400); Red Blood Count 5.47 X10*6/uL (4.60-5.80); Red Cell Distribution Width 14.1 % (11.0-16.0)
[2025-01-03 14:15] LABS: Alanine Aminotransferase 66 U/L (0-40); Albumin Level 4.3 g/dL (3.5-5.0); Anion Gap 14 (12-20); Aspartate Amino Transferase 41 U/L (5-37); Bilirubin Total 0.7 mg/dL (0.0-1.0); Blood Urea Nitrogen 20 mg/dL (9-16); Calcium 9.4 mg/dL (8.4-10.2); Carbon Dioxide 28 mmol/L (22-29); Chloride 104 mmol/L (96-108); Cholesterol 166 mg/dL (<200); Estimated Glomerular Filt Rate > 60; Glucose Fasting 110 mg/dL (60-99); HDL Cholesterol 40 mg/dL (>40); LDL Cholesterol Calculated 94 mg/dL (<100); Lipase 47 U/L (8-78); Potassium 4.5 mmol/L (3.3-5.1); Sodium 141 mmol/L (135-145); Triglycerides 162 mg/dL (<150)
[2025-01-03 18:18] LABS: Alkaline Phosphatase 57 U/L (39-117); Amylase 54 U/L (28-100)
== END 2025-01-03 08:21 | disposition home or self-care (01) ==
LOC: HO.HMGCLDS 08:20
PROVIDERS: PCP Internal Medicine; Visit Provider Internal Medicine
DX: I10 Essential (primary) hypertension (principal); E78.9 Disorder of lipoprotein metabolism, unspecified; K21.9 Gastro-esophageal reflux disease without esophagitis; K76.0 Fatty (change of) liver, not elsewhere classified; G43.919 Migraine, unspecified, intractable, without status migrainosus; Z91.09 Other allergy status, other than to drugs and biological substances; J44.9 Chronic obstructive pulmonary disease, unspecified; E66.01 Morbid (severe) obesity due to excess calories; N40.0 Benign prostatic hyperplasia without lower urinary tract symptoms; R73.01 Impaired fasting glucose; G47.33 Obstructive sleep apnea (adult) (pediatric); Z99.89 Dependence on other enabling machines and devices
CPT/HCPCS: 36415; 80053; 80061; 82150; 83036; 83690; 85025

== ENCOUNTER 2025-01-10 09:30 | Outpatient (AMB) | payer MEDICARE, OTHER, SELFPAY ==
[2025-01-10 09:36] VITALS: BP 132/80; PULSE 62; O2SAT 94; BMI 40.1
--- NOTE | 2025-01-10 09:36 | A.OFFPC_ITS ---
Vital Signs 01/10/25 09:36 Height 5 ft 11 in Weight 287 lb 6 oz BMI 40.1 BP 132/80 Blood Pressure Location Rt brachial Position Sitting Pulse 62 Pulse Source Pulse Oximeter Pulse Oximetry (%) 94 Oxygen Delivery Method Room Air Intake Visit Reasons: 3m follow up Allergies No Known Allergies [No Known Allergies*] Allergy (Verified 01/10/25 09:37) Medication List - Last Reconciled 01/10/25 by Amalia Salcedo MD albuterol sulfate 90 mcg/actuation (ProAir HFA) 2 puffs inhalation Q4-6H PRN 3 days ezetimibe (Zetia) 10 mg PO DAILY 90 days fluticasone propionate 50 mcg/actuation (Allergy Relief (fluticasone)) 1 spray intranasal DAILY 30 days hydrochlorothiazide 25 mg PO QAM 90 days losartan 50 mg PO ONCE 90 days omeprazole 20 mg PO ONCE PRN 90 days ondansetron 4 mg PO Q8H PRN propranolol ER 60 mg PO DAILY rosuvastatin 10 mg PO DAILY tadalafil 5 mg PO DAILY tamsulosin 0.4 mg PO DAILY 90 days Zepbound (tirzepatide (weight loss)) 2.5 mg (0.5 mL) subcut QWEEK NS Tobacco use date assessed: 01/10/25 Fall risk assessment: No Falls in past year Last assessed Fall Risk: 01/10/25 Dental Screening Dental Screen Date: 01/10/25 Did you have a dental visit in the last 12 months?: Yes Did you have a dental problem in the last 6 months where you did not have access to dental care?: No Was dental information given to patient?: Patient has dentist HPI 3m follow up HPI Details - The patient is a 69-year-old male pres enting for a routine follow-up for chronic conditions and management of new symptoms. - Osteoarthritis of right knee: The laine ent reports no recent exacerbations but uses a knee brace when walking. - Pre-diabetes: Fasting glucose is 110 m g/dL, recent HbA1c is 5.7%, indicating pre-diabetic range. - Hyperlipidemia: Current LDL level is 9 4 mg/dL, managing with Zetia. - Hypertension: Blood pressure recorded as 132/80 mmHg. - Allergic Rhinitis: Seasonal symptoms r eported, uses an inhaler as needed for relief. - GERD: Managed with omeprazole. - Eczema: Resides behind the right ear, sporadic appearance noted for an extended period. - Benign Positional Vertigo: Occurred on ce recently when standing up after lying on the floor, accompanied by brief dizziness and nausea. Allergies are stable Headache is stable taking propranolol 60 mg once a day. Patient is seeing urologist for benign prostatic hypertrophy and is taking tamsulosin 0.4 mg once a day through them - need to lose weight patient is morbidl y obese with BMI of 40.1 Medications - Zetia for hyperlipidemia - Albuterol inhaler as needed for allerg ic rhinitis - Hydrochlorothiazide for hypertension - Losartan for hypertension - Omeprazole for GERD - Propranolol (purpose not specified) - Rosuvastatin (purpose not specified) - Zofran, used occasionally for nausea - Cialis 5 mg (from urologist) - [id number]-[id number] allergy medicine and nasal spray for allergic rhinitis Problem List - Osteoarthritis of right knee - Hyperlipidemia - Pre-diabetes - Hypertension - Allergic Rhinitis - Gastroesophageal Reflux Disease (GERD) - Eczema - Benign Positional Vertigo Diagnostic results - Labs: CBC normal, no anemia. Electroly dillon normal. Kidney functions normal. Fasting sugar 110 mg/dL, HbA1c 5.7%, indicates pre-diabetes. Liver enzymes elevated but stable. LDL 94 mg/dL. [place] of Care - Follow-up care with urologist, current ly on two medications from them. Patient Instructions - Use prescribed cream for eczema behind the right ear at night for 7-10 days. - Avoid cleaning ears with hydrogen chelle xide and schedule regular cleanings if necessary. - Monitor and gradually change positions to minimize vertigo symptoms. - Continue wearing knee brace as needed. - continue medications - follow-up 3-4 months Review of Systems General: No fever no chills neurological: No headaches no dizziness ear nose throat: No sore throat no hearing difficulty no ear pain cardiovascular: No syncope, no chest pain, no palpitations gastrointestinal: No nausea vomiting or diarrhea endocrine: No polyuria polydipsia no heat intolerance genitourinary: No dysuria Physical Exam general: No acute distress HEENT: Right ear clean but a little bit inflamed, left ear perfectly fine and clean neck: Supple respiratory system: Able to talk in full sentences, no audible wheeze no stridor cardiovascular: S1-S2 RRR gastrointestinal: No pain extremities: No new findings PROSTHETICS LAB TECHNICIAN: Alert awake oriented x3 motor sensory intact skin: Normal turgor, eczema noted behind the right ear [facility] Medical History Pilonidal cyst (04/29/24) Obesity COPD, mild Environmental allergies Migraine headache Obstructive sleep apnea on CPAP Impaired fasting blood sugar Fatty liver Chronic GERD Benign prostatic hyperplasia Lipid disorder Hypertension, essential Surgical History History of colonoscopy Family History Father Hx of CABG Mother No problems noted. Sister ETOH abuse Substance use disorder Maternal Grandfather No problems noted. Maternal Grandmother No problems noted. Paternal Grandfather No problems noted. Paternal Grandmother No problems noted. Brother No problems noted. Daughter No problems noted. Social History Housing: House Alcohol intake: current Alcohol intake frequency: 0-2 drinks per day Patient Tobacco Use Status: Former Tobacco user e-Cigarette/Vaping Use: Never Used service: Yes Current occupational status: retired Cognitive needs: No Hearing needs: No Vision needs: Yes Questionnaire Thrive Questionnaire Date Thrive assessed: 01/10/25 I am a: Patient What is your living situation today?: I have a steady place to live Within the past 12 months, did the food you bought not last and you didn't have the money to get more?: I choose not to answer this question Within the past 12 months, did you worry whether your food would run out before you got money to buy more?: I choose not to answer this question Do you have trouble paying for medicines?: I choose not to answer this question Do you have trouble getting transportation to medical appointments?: I choose not to answer this question Do you have trouble paying your heating and electricity bill?: I choose not to answer this question Do you have trouble taking care of your child, family member or friend?: I choose not to answer this question Do you have trouble with day-to-day activities such as bathing, preparing meals, shopping, managing finances, etc.?: I choose not to answer this question Are you currently unemployed and looking for a job?: No Are you interested in more education?: No Please select the resources that you would like help with: None Currently or been in a relationship where the following occur: I choose not to answer THRIVE Score: 0 AUDIT C Alcohol Use Questionnaire (AUDIT-C) 1. How often do you have a drink containing alcohol?: 2-4 times a month 2. How many drinks containing alcohol do you have on a typical day when you are drinking?: 1 or 2 3. How often do you have six or more drinks on one occasion?: Never Total Score: 2 Score Reviewed/Action Taken: Yes VINCENZO-7 AMB Questionnaire VINCENZO-7 Date VINCENZO - 7 assessed: 10/11/24 Source: Developed by Drs. Jasvir Camarillo, Cindy Weiner, Flaco Chance and colleagues, with an educational maricarmen from [employer]. Physical exam (Primary Care) Vital Signs: Last Vital Signs Pulse 62 01/10/25 09:36 BP 132/80 01/10/25 09:36 Pulse Ox 94 01/10/25 09:36 Oxygen Delivery Method Room Air 01/10/25 09:36 BMI result Body Mass Index 40.1 Tobacco/Smoking Status: Tobacco use Status Tobacco use date assessed 01/10/25 01/10/25 09:38 Patient Tobacco Use Status Former Tobacco user 01/10/25 09:38 e-Cigarette/Vaping Use Never Used 01/10/25 09:38 Thrive Assessment: Date of Thrive Assessment Date Thrive assessed 01/10/25 01/10/25 09:38 Currently or been in a relationship where the following occur: I choose not to answer Coding Level of Care Code Est Pt Level 4 (37151) Complex EM visit Add On G2211 Diagnoses Hypertension, essential I10 Lipid disorder E78.9 Benign prostatic hyperplasia without lower urinary tract symptoms N40.0 Lower urinary tract symptom presence: symptoms absent Chronic GERD K21.9 Fatty liver K76.0 Impaired fasting blood sugar R73.01 Obstructive sleep apnea on CPAP G47.33; Z99.89 Intractable migraine without status migrainosus, unspecified migraine type G43.919 Migraine type: unspecified Status migrainosus presence: without status migrainosus Intractability: intractable Environmental allergies Z91.09 Morbid obesity due to excess calories E66.01 Acute pain of right knee M25.561 Chronicity: acute Primary osteoarthritis of right knee M17.11 Osteoarthritis type: primary Assessment & Plan Assessment & Plan (1) Hypertension, essential: Code(s): I10 - Essential (primary) hypertension Category: Medical (2) Lipid disorder: Code(s): E78.9 - Disorder of lipoprotein metabolism, unspecified Category: Medical (3) Benign prostatic hyperplasia: Code(s): N40.0 - Benign prostatic hyperplasia without lower urinary tract symptoms Category: Medical Qualifiers: Lower urinary tract symptom presence: symptoms absent Qualified Code(s): N40.0 - Benign prostatic hyperplasia without lower urinary tract symptoms (4) Chronic GERD: Code(s): K21.9 - Gastro-esophageal reflux disease without esophagitis Category: Medical (5) Fatty liver: Code(s): K76.0 - Fatty (change of) liver, not elsewhere classified Category: Medical (6) Impaired fasting blood sugar: Code(s): R73.01 - Impaired fasting glucose Category: Medical (7) Obstructive sleep apnea on CPAP: Code(s): G47.33 - Obstructive sleep apnea (adult) (pediatric); Z99.89 - Dependence on other enabling machines and devices Category: Medical (8) Migraine headache: Code(s): G43.909 - Migraine, unspecified, not intractable, without status migrainosus Category: Medical Qualifiers: Migraine type: unspecified Status migrainosus presence: without status migrainosus Intractability: intractable Qualified Code(s): G43.919 - Migraine, unspecified, intractable, without status migrainosus (9) Environmental allergies: Code(s): Z91.09 - Other allergy status, other than to drugs and biological substances Category: Medical (10) Morbid obesity due to excess calories: Code(s): E66.01 - Morbid (severe) obesity due to excess calories Category: Medical (11) Knee pain, right: Code(s): M25.561 - Pain in right knee Category: Medical Qualifiers: Chronicity: acute Qualified Code(s): M25.561 - Pain in right knee (12) Osteoarthritis of right knee: Code(s): M17.11 - Unilateral primary osteoarthritis, right knee Category: Medical Qualifiers: Osteoarthritis type: primary Qualified Code(s): M17.11 - Unilateral primary osteoarthritis, right knee Plan - The patient is a 69-year-old male presenting for a routine follow-up for chronic conditions and management of new symptoms. - Osteoarthritis of right knee: The patient reports no recent exacerbations but uses a knee brace when walking. - Pre-diabetes: Fasting glucose is 110 mg/dL, recent HbA1c is 5.7%, indicating pre-diabetic range. - Hyperlipidemia: Current LDL level is 94 mg/dL, managing with Zetia. - Hypertension: Blood pressure recorded as 132/80 mmHg. - Allergic Rhinitis: Seasonal symptoms reported, uses an inhaler as needed for relief. - GERD: Managed with omeprazole. - Eczema: Resides behind the right ear, sporadic appearance noted for an extended period. - Benign Positional Vertigo: Occurred once recently when standing up after lying on the floor, accompanied by brief dizziness and nausea. Allergies are stable Headache is stable taking propranolol 60 mg once a day. Patient is seeing urologist for benign prostatic hypertrophy and is taking tamsulosin 0.4 mg once a day through them - need to lose weight patient is morbidly obese with BMI of 40.1 Medications - Zetia for hyperlipidemia - Albuterol inhaler as needed for allergic rhinitis - Hydrochlorothiazide for hypertension - Losartan for hypertension - Omeprazole for GERD - Propranolol (purpose not specified) - Rosuvastatin (purpose not specified) - Zofran, used occasionally for nausea - Cialis 5 mg (from urologist) - [id number]-xxermwg allergy medicine and nasal spray for allergic rhinitis Problem List - Osteoarthritis of right knee - Hyperlipidemia - Pre-diabetes - Hypertension - Allergic Rhinitis - Gastroesophageal Reflux Disease (GERD) - Eczema - Benign Positional Vertigo Diagnostic results - Labs: CBC normal, no anemia. Electrolytes normal. Kidney functions normal. Fasting sugar 110 mg/dL, HbA1c 5.7%, indicates pre-diabetes. Liver enzymes elevated but stable. LDL 94 mg/dL. [place] of Care - Follow-up care with urologist, currently on two medications from them. Patient Instructions - Use prescribed cream for eczema behind the right ear at night for 7-10 days. - Avoid cleaning ears with hydrogen peroxide and schedule regular cleanings if necessary. - Monitor and gradually change positions to minimize vertigo symptoms. - Continue wearing knee brace as needed. - continue medications - follow-up 3-4 months Medications: New clotrimazole-betamethasone 1-0.05 % 1 appl topical ONCE 30 days 45 grams 0RF Discontinued Zepbound (tirzepatide (weight loss)) for 4 weeks Discontinued Reason: Doctor's Order 2.5 mg (0.5 mL) subcut QWEEK 2 mL 0RF NS
--- OUTSIDE RECORDS SUMMARY | 2025-01-10 10:08 | XMS_ITS | Clinical Summary ---
Author Organization [facility] ity Address [address] [place] [address] Care Team Providers Care Substation Wireman Name Role Phone Unavailable Primary Care Provider [...]
== END 2025-01-10 13:50 | disposition home or self-care (01) ==
LOC: HO.HMCC 09:31
PROVIDERS: PCP Internal Medicine; Visit Provider Internal Medicine
DX: I10 Essential (primary) hypertension (principal); E66.01 Morbid (severe) obesity due to excess calories; Z68.41 Body mass index [BMI] 40.0-44.9, adult; R73.01 Impaired fasting glucose; E78.9 Disorder of lipoprotein metabolism, unspecified; N40.0 Benign prostatic hyperplasia without lower urinary tract symptoms; K21.9 Gastro-esophageal reflux disease without esophagitis; K76.0 Fatty (change of) liver, not elsewhere classified; G47.33 Obstructive sleep apnea (adult) (pediatric); Z99.89 Dependence on other enabling machines and devices; G43.919 Migraine, unspecified, intractable, without status migrainosus; Z91.09 Other allergy status, other than to drugs and biological substances

== ENCOUNTER → 2025-01-10 09:30 | Outpatient (BNVA) | payer MEDICARE, OTHER, SELFPAY | PROVIDERS: PCP Internal Medicine; Visit Provider Internal Medicine | DX: I10 Essential (primary) hypertension (principal); E78.9 Disorder of lipoprotein metabolism, unspecified; N40.0 Benign prostatic hyperplasia without lower urinary tract symptoms; K21.9 Gastro-esophageal reflux disease without esophagitis; K76.0 Fatty (change of) liver, not elsewhere classified; R73.01 Impaired fasting glucose; G47.33 Obstructive sleep apnea (adult) (pediatric); Z99.89 Dependence on other enabling machines and devices; G43.919 Migraine, unspecified, intractable, without status migrainosus; Z91.09 Other allergy status, other than to drugs and biological substances; E66.01 Morbid (severe) obesity due to excess calories; M25.561 Pain in right knee | CPT/HCPCS: 99212 ==

== ENCOUNTER 2025-01-25 08:39 | Outpatient (REF) | payer MEDICARE, OTHER, SELFPAY ==
--- OUTSIDE RECORDS SUMMARY | 2025-01-25 08:57 | XMS_ITS | Clinical Summary ---
Author Organization [facility] Address [address] [place] [address] Care Team Providers Care Manager Qa Name Role Phone Unavailable Primary Care Provider Unavailabl e Social History Tobacco Use Types Packs/Day Years Used Date Smoking Tobacco: Never Assessed Sex and Gender Information Value Date Recorded Sex Assigned at Not on file Legal Sex Male 1:05 AM EST Gender Identity Not on file Sexual Orientation Not on file Plan of Treatment Upcoming Encounters Date Type Department Care Team (Late st Contact Info) Description 02/01/2025 10:00 AM EDT [facility] [address] [place] [id number] Elliott Ocampo MD [address] [place] [address] Health Maintenance Due Date Last Done Comments DTaP,Tdap,and Td Vaccines (1 - Tdap) 11/26/1974 Pneumococcal Vaccine: 50+ Ye ars (1 of 1 - PCV) 11/26/2005 Zoster Vaccines (1 of 2) 11/26/2005 COVID-19 Vaccine ( - 2023-2 5 season) 2024 Abdominal Aortic Aneurysm (A AA) Screen 01/11/2025 Cholesterol Screening (Lipid Panel) 01/11/2025 Colorectal Cancer Screening: Colonoscopy 01/11/2025 Depression Screening 01/11/2025 Falls Risk Assessment 01/11/2025 Hepatitis C Screening 01/11/2025 Medicare Annual Wellness Visit 01/11/2025 Social Influencers of Health Screening 01/11/2025 Influenza Vaccine (Season Ended) 2025 RSV Immunization [...] on patient's age to complete this topic Insurance MEDICARE [facility]
[2025-01-25 10:57] LABS: Prostate Specific Antigen 5.93 ng/mL (<0.05-4.0)
== END 2025-01-25 08:40 | disposition home or self-care (01) ==
LOC: HO.HMGCLDS 08:39
PROVIDERS: PCP Internal Medicine; Visit Provider Urology
DX: R97.20 Elevated prostate specific antigen [PSA] (principal); Z12.5 Encounter for screening for malignant neoplasm of prostate
CPT/HCPCS: 36415; 84153

== ENCOUNTER 2025-07-08 08:02 | Outpatient (REF) | payer MEDICARE, OTHER, SELFPAY ==
--- OUTSIDE RECORDS SUMMARY | 2025-07-08 08:05 | XMS_ITS | Clinical Summary ---
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 Active omeprazole (PriLOSEC) [address] capsule Take 1 capsule (20 mg total) by mouth 1 (one) time each day. Do not crush or chew. Active lovastatin (MEVACOR) 40 mg tablet Take 1 tablet (40 mg total) by mouth at bedtime. Active niacin (NIASPAN) 500 mg CR tablet Take 1 tablet (500 mg total) by mouth at bedtime. Do not crush, chew, or split. Active benzonatate (TESSALON) 200 mg capsule Take 1 capsule (200 mg total) by mouth 3 (three) times a day if needed for cough. Do not crush or chew. Active amLODIPine (NORVASC) 5 mg tablet Take by mouth 1 (one) time each day. Active propranoloL (INDERAL) 60 mg tablet Take 1 tablet (60 mg total) by mouth 3 (three) times a day. Active cetirizine (ZyrTEC) 10 mg tablet Take 1 tablet (10 mg total) by mouth 1 (one) time each day. Active inhalational spacing device (Vortex Holding Chamber) inhaler by Other route. Use as instructed Active albuterol HFA (PROAIR HFA ; PROVENTIL HFA ; VENTOLIN HFA) 90 mcg/actuation inhaler Inhale 2 puffs by mouth every 6 (six) hours if needed for wheezing. Active budesonide-form oteroL (SYMBICORT) 80-4.5 mcg/actuation inhaler Inhale 2 puffs by mouth 2 (two) times a day. Rinse mouth with water after use to reduce aftertaste and incidence of candidiasis. Do not swallow. Active rosuvastatin (CRESTOR) 10 mg tablet Take 1 tablet (10 mg total) by mouth. 5 Active hydroCHLOROthia zide (HYDRODIURIL) 25 mg tablet Take 1 tablet (25 mg total) by mouth 1 (one) time each day. 5 Active ezetimibe (ZETIA) 10 mg tablet Take 1 tablet (10 mg total) by mouth 1 (one) time each day. 5 Active tadalafiL (CIALIS) 5 mg tablet Take 1 tablet (5 mg total) by mouth 1 (one) time each day. 5 Active fluticasone propionate (FLONASE) 50 mcg/actuation nasal spray Administer 2 sprays into each nostril 1 (one) time each day. Active finasteride (PROSCAR) 5 mg tablet Take 1 tablet (5 mg total) by mouth 1 (one) time each day. 5 Active Active Problems Problem Noted Date Diagnosed Date GERD (gastroesophageal reflux disease) Overview (01/25/2025): Asthma 01/25/2025 Morbid obesity ([facility] V24, [facility] V28) 2024 MERYL (obstructive sleep apnea) 01/25/2025 Allergic rhinitis 01/25/2025 Acute migraine 01/25/2025 Hypercholesteremia 01/25/2025 Encounters Date Type Department Care Team Description 05/04/2025 10:00 AM EDT Office Visit Pulmonology - [address] [phone] Elliott Ocampo MD Mild asthma, unspecified whether complicated, unspecified whether persistent (Primary Dx); Gastroesophageal reflux disease without esophagitis; Primary hypertension; MERYL (obstructive sleep apnea); Allergic rhinitis due to pollen, unspecified seasonality; Morbid obesity ([facility] V24, [facility] V28) from Last 3 Months Social History Tobacco Use Types Packs/Day Years Used Date Smoking Tobacco: Never Smokeless Tobacco: Never Tobacco Cessation:Counseling Given: Not Answered Sex and Gender Information Value Date Recorded Sex Assigned at Not on file Legal Sex Male 1:05 AM EST Gender Identity Not on file Sexual Orientation Not on file Obstetrics History Last Filed Vital Signs Vital Sign Reading Time Taken Comments Blood Pressure 149/74 05/04/2025 9:48 AM EDT Pulse 58 05/04/2025 9:48 AM EDT Temperature 36.1 C (97 F) 05/04/2025 9:48 AM EDT Respiratory Rate 18 05/04/2025 9:48 AM EDT Oxygen Saturation 96% 05/04/2025 9:48 AM EDT Inhaled Oxygen Concentration - - Weight 127 kg (280 lb) 05/04/2025 9:48 AM EDT Height 180.3 cm (5' 11 ) 05/04/2025 9:48 AM EDT Body Mass Index 39.05 05/04/2025 9:48 AM EDT Plan of Treatment Upcoming Encounters Date Type Department Care Team (Late st Contact Info) Description 08/08/2025 10:30 AM EST Ancillary Procedure Pulmonology [address] [phone] 08/08/2025 11:30 AM EST Office Visit Pulmonology - [address] [phone] Elliott Ocampo MD [address] [place] [phone] Health Maintenance Due Date Last Done Comments Colorectal Cancer Screening: Colonoscopy 1955 RSV Immunization Adult Patients (1 - Risk 50-74 years 1-dose series) 11/26/2005 Depression Screening 08/31/2024 Cholesterol Screening (Lipid Panel) 01/11/2025 Falls Risk Assessment 01/11/2025 Hepatitis C Screening 01/11/2025 Medicare Annual Wellness Visit 01/11/2025 Social Influencers of Health Screening 01/11/2025 Zoster Vaccines (2 of 2) 02/16/2025 12/22/2024 COVID-19 Vaccine ( season) 2025 05/26/2024, 05/27/2023, 07/10/2022, Additional history exists Influenza Vaccine (#1) 2025 , 05/23/2023, 06/12/2021, Additional history exists Hypertension/CHF/CAD Annual BMP Blood Test 05/04/2025 DTaP,Tdap,and Td Vaccines (2 - Td or Tdap) 03/28/2032 03/28/2022 Pneumococcal Vaccine: 50+ Years Completed 12/22/2024 HIB Vaccines Aged Out No longer eligi [...] to complete this topic RSV Immunization Patients Under 20 months Aged Out No longer eligible based on patient's age to complete this topic Varicella Vaccines Aged Out No longer eligible based on patient's age to complete this topic Insurance MEDICARE [facility] Care Teams Landfill Grader Relationship Specialty Start Date End Date Amalia Salcedo MD [address] [place] [address] PCP - General Internal Medicine 02/01/25
--- OUTSIDE RECORDS SUMMARY | 2025-07-08 08:05 | XMS_ITS | Patient Health Record ---
Author Organization [facility] Address [address] [place] [phone] Care Team Providers Care Hr Business Partner Consultant Name Role Phone Matias GALLEGO, [facility] Primary Care Provider Jasvir Wilson [phone] Reason For Referral No Information Medications Medication SIG (Take, Route, Frequency, Duration) Notes Start Date End Date Status Lovastatin 40 MG 1 tablet with a meal Orally Once a day Active Niacin ER 1000 MG 1 tablet Orally Once a day Active Propranolol HCl 60 MG 1 tablet Orally once a day Active Tamsulosin HCl 0.4 MG 1 capsule Orally Once a day Active Losartan Potassium 50 MG 1 tablet Orally Once a day Active Aspir-81 81 MG 1 tablet Orally Once a day Active Omeprazole 20 MG 1 capsule Orally prn Active Social History Tobacco Use: Social History Observation Description Date Details (start date - stop date) Former Smoker NA - NA Tobacco Use/Smoking Question Answer Notes Patient is a former smoker How long has it been since you last smoked? > 10 years Section Notes: Nonsmoker > 10 yrs ago; 1-2 drinks QD Problems Problem Type SNOMED Code ICD Code Onset Dates Problem Status W/U Status Risk Notes Problem Screening for malignant neoplasm of colon (525234148) Encounter for screening for malignant neoplasm of colon (Z12.11) Active confirmed Problem Preprocedural examination (113152410803906) Preprocedural examination (Z01.818) Active confirmed Problem Gastroesophageal reflux disease (280489055) Gastroesophageal reflux disease, esophagitis presence not specified (K21.9) Active confirmed Plan Of Treatment Future Test Test Name Order Date COLONOSCOPY 02/25/2017 Insurance Providers Payer Name Payer Address Payer Phone Subscriber Number Group Number Insured Name Patient Relationship to Insured Coverage Start Date Coverage End Date [facility] ([employer]) [address] [place] [phone] [id number] NATHALIA ABBOTT Self - patient is the insured Medical (General) History Medical History History ICD Code Denies [place],DM,CVA,Lung disease,renal dise ase HTN GERD Hyperlipidemia BPH Sleep apnea--uses CPAP Surgical History Surgery Date(Month/Year) Vasectomy
[2025-07-08 11:25] LABS: MANUAL DIFF FLAG NO
[2025-07-08 11:41] LABS: Hematocrit 43.7 % (42.0-52.0); Hemoglobin 14.6 g/dl (14.0-18.0); Imm Gran Abs Auto 0.01 X10*3/uL (0.00-0.03); Imm Gran Pct Auto 0.2 % (0.0-0.4); Lymphocytes Absolute Auto 1.5 X10*3/uL (1.2-4.9); Mean Corpuscular HGB Conc 33.4 g/dl (31.0-36.0); Mean Corpuscular Hemoglobin 27.5 pg (27.0-33.0); Mean Corpuscular Volume 82.5 fL (80.0-98.0); NRBC Abs Auto 0.000 X10*3/uL (0.0-0.012); NRBC Pct Auto 0.0 /100WBC (0.0-0.2); Platelet Count 214 X10*3/uL (160-400); Red Blood Count 5.30 X10*6/uL (4.60-5.80); White Blood Count 4.8 X10*3/uL (4.8-10.8)
[2025-07-08 11:53] LABS: Alanine Aminotransferase 81 U/L (0-40); Albumin Level 4.4 g/dL (3.5-5.0); Alkaline Phosphatase 56 U/L (39-117); Anion Gap 11 (12-20); Aspartate Amino Transferase 55 U/L (5-37); Blood Urea Nitrogen 16 mg/dL (9-16); Calcium 9.2 mg/dL (8.4-10.2); Carbon Dioxide 28 mmol/L (22-29); Chloride 105 mmol/L (96-108); Estimated Glomerular Filt Rate > 60; Potassium 3.9 mmol/L (3.3-5.1); Sodium 140 mmol/L (135-145); Total Protein 6.9 g/dL (6.5-8.0)
== END 2025-07-08 08:03 | disposition home or self-care (01) ==
LOC: HO.HMGCLDS 08:02
PROVIDERS: PCP Internal Medicine; Visit Provider Internal Medicine
DX: I10 Essential (primary) hypertension (principal); K21.9 Gastro-esophageal reflux disease without esophagitis; G43.919 Migraine, unspecified, intractable, without status migrainosus; E78.9 Disorder of lipoprotein metabolism, unspecified; J44.9 Chronic obstructive pulmonary disease, unspecified; K76.0 Fatty (change of) liver, not elsewhere classified; E66.01 Morbid (severe) obesity due to excess calories; Z91.09 Other allergy status, other than to drugs and biological substances
CPT/HCPCS: 36415; 80053; 85025

== ENCOUNTER 2025-07-14 09:29 | Outpatient (AMB) | payer MEDICARE, OTHER, SELFPAY ==
[2025-07-14 09:43] VITALS: BP 130/82; PULSE 71; RESP 16; O2SAT 96; BMI 40.4
--- NOTE | 2025-07-14 09:43 | A.OFFVIS_ITS ---
Intake Vital Signs 07/14/25 09:43 Height 5 ft 11 in Weight 290 lb BMI 40.4 BP 130/82 Blood Pressure Location Lt brachial Position Sitting Respiration 16 Pulse 71 Pulse Source Pulse Oximeter Pulse Oximetry (%) 96 Oxygen Delivery Method Room Air Intake Visit Reasons: AWV G0438 Spiral Binder Required: No Accompanied by: Self / Same As Patient Allergies No Known Allergies (No Known Allergies*) Allergy (Verified 07/14/25 09:46) Medication List - Last Reconciled 07/14/25 by Amalia Salcedo MD albuterol sulfate 90 mcg/actuation (ProAir HFA) 2 puffs inhalation Q4-6H PRN 3 days clotrimazole-betamethasone 1-0.05 % 1 appl topical ONCE 30 days ezetimibe (Zetia) 10 mg PO DAILY 90 days fluticasone propionate 50 mcg/actuation (Allergy Relief (fluticasone)) 1 spray intranasal DAILY 30 days hydrochlorothiazide 25 mg PO QAM 90 days losartan 50 mg PO ONCE 90 days omeprazole 20 mg PO ONCE PRN 90 days ondansetron 4 mg PO Q8H PRN propranolol ER 60 mg PO DAILY rosuvastatin 10 mg PO DAILY tadalafil 5 mg PO DAILY tamsulosin 0.4 mg PO DAILY 90 days Do you need a note to return to daycare/school/sports/work: No HPI AWV G0438 HPI Details History of Present Illness The patient is a 69-year-old male presenting for a Medicare annual wellness visit. and regular follow up also having some acute problems that he want to discuss today, like PND, and pain right upper arm - The patient reports sore spot in his right arm. - The pain occurs when he sleeps on his right side and feels a stretch when he lifts his arm. Non-alcoholic steatohepatitis (GREEN): - Recent lab results show that his liver enzymes are slightly elevated but stable. - [facility] Elevated prostate-specific antigen (PSA): - The patient is followed by a urologist , Dr. Powell, for an elevated PSA level noted in December. - He was recently started on finasteride 5 mg. - A follow-up blood test for PSA is sche duled for next month. Hearing Impairment: - The patient has hearing difficulty in both ears and tinnitus. - He owns hearing aids but does not wear them regularly because he feels he can still hear and that they make sounds too loud. - He has an upcoming appointment at the [facility] to have the hearing aids checked. PND: - The patient reports a chronic sensatio n of phlegm or postnasal drip in his throat which he tries to cough up. - He is not taking his prescribed omepra zole regularly. - He has known allergies, with some snee zing and watery eyes, for which he takes an uloi-nul-qwaskry pill daily and uses a fluticasone nasal spray. Health Maintenance: - The patient's last colonoscopy was at age 65, and he is scheduled for another one next year, at age 70, suggesting a 5-year interval. - His last eye exam was in August, with another one scheduled for the upcoming August. - Immunizations are up to date, includin g a pneumonia vaccine in November, tetanus in 2021, and shingles and COVID vaccines in May of this year, as well as a flu vaccine. - He reports no falls in the last year a nd denies depression. - A healthcare proxy form has not yet be en provided. Medications: - Zetia for hyperlipidemia - Fluticasone nasal spray - Hydrochlorothiazide 25 mg for hyperten trish - Losartan 50 mg for hypertension - Omeprazole 20 mg for acid reflux - Propranolol for migraine - Rosuvastatin 10 mg for hyperlipidemia - Finasteride 5 mg for elevated PSA - Unspecified OTC medication for allergi es Social History: - Alcohol use: The patient reports drink ing one or two alcoholic beverages per week. - Functional Status: The patient denies any falls in the last year. Diagnostic Results: - Labs: Recent bloodwork indicates the p atient is prediabetic, kidney functions are okay, and the blood count is normal with no anemia. - Liver Enzymes: Slightly high but stabl e. - PSA: Was elevated in December. Problem List - Medicare Annual Wellness Visit - Right arm pain - PND - Possible Non-alcoholic steatohepatitis (GREEN) - Prediabetes - Hyperlipidemia - Hypertension - Gastroesophageal reflux disease (GERD) - Elevated prostate-specific antigen (PS A) - Allergic rhinitis - Migraine - Hearing loss with tinnitus - Health maintenance Plan - An abdominal ultrasound will be ordere d to evaluate for fatty liver disease. - The patient was advised to take omepra zole 20 mg daily at night for PND, phlegm and cough, which may be related to GERD. - For right arm pain, the patient was ad vised to avoid sleeping on that side; he declined a physical therapy referral at this time and will attempt to manage it on his own. - The patient was advised to continue hi s current medications for cholesterol, blood pressure, and migraines. - He will continue to follow up with his urologist for elevated PSA and will proceed with a scheduled blood test next month. - He is encouraged to attend his [facility] appointment to have his hearing aids adjusted. - The patient was reminded to bring his healthcare proxy form to his next a ppointment. - The patient will proceed with his sche duled colonoscopy next year and his eye exam in August. - He was counseled on lifestyle modifica tions for fatty liver, including weight loss, healthy eating, and avoiding alcohol and excessive Tylenol. f/u 3-4 M Review of Systems - General: No fever no chills - Neurological: No headaches no dizziness - Ear nose throat: No sore throat no ear pain - Cardiovascular: No syncope, no chest pain, no palpitations - Gastrointestinal: No nausea vomiting or diarrhea Physical Exam General: No acute distress HEENT: No acute findings, slight hearing difficulty noted Neck: Supple Respiratory system: Able to talk in full sentences, no audible wheeze, reports phlegm sensation in throat Cardiovascular: S1-S2 regular in rate and rhythm GI : no pain Extremities: No pain, slight soreness in biceps muscle noted with palpation right side, ROM intact CLINICAL ENGINEERING MANAGER: Alert awake oriented x3 motor intact Skin: Normal turgor HPI Comments History of Present Illness Details AWV Medical/social history reviewed Past medical history reviewed [place] of care / care team list updated Surgical/ hospitalization history reviewed Current medications including OTC and supplements reviewed Family history reviewed Tobacco controlled form updated Alcohol use form updated Illicit drug use in social history reviewed Current diagnosis of depression ?screening updated Appropriate PHQ 2/PHQ-9 completed . Vital signs reviewed Alcohol tobacco drug use reviewed and discussed . MMSE completed . ? Fall risk: ?Assessed Fall history: ?None Have you had any falls with injury in the past year?? No Have you had 2 or more falls in the past year?? No Fall risk assessment completed Home safety discussed with the patient Functional ability assessed and discussed and documented Activities of daily living reviewed and appropriate actions taken . HRA filled out by the patient and reviewed by provider and scanned . Appropriate written screening schedule established . Any health advise needed provided . Advance care planning discussed with the patient , necessary paperwork filled Examination IPPE/AWE: Balance intact Romberg intact Tandem walk intact walk-in turn intact rise from sit to stand intact . ?Hearing ?whisper test pass . Medication list reviewed, patient is stable on medications All other providers patient is seeing discussed and noted . [facility] Medical History Pilonidal cyst (04/29/24) Obesity COPD, mild Environmental allergies Migraine headache Obstructive sleep apnea on CPAP Impaired fasting blood sugar Fatty liver Chronic GERD Benign prostatic hyperplasia Lipid disorder Hypertension, essential Surgical History History of colonoscopy Family History Father Hx of CABG Mother No problems noted. Sister ETOH abuse Substance use disorder Maternal Grandfather No problems noted. Maternal Grandmother No problems noted. Paternal Grandfather No problems noted. Paternal Grandmother No problems noted. Brother No problems noted. Daughter No problems noted. Social History Housing: House Alcohol intake: current Alcohol intake frequency: 0-2 drinks per day Patient Tobacco Use Status: Former Tobacco user e-Cigarette/Vaping Use: Never Used service: Yes Current occupational status: retired Cognitive needs: No Hearing needs: No Vision needs: Yes Questionnaire Medicare Wellness Checkup What [age]?: [age] What gender do you identify with?: male During the past 4 weeks, how much have you been bothered by emotional problems such as feeling anxious, depressed, irritable, sad or downhearted, and blue?: not at all During the past 4 weeks, has your physical & emotional health limited your social activities with family, friends, neighbors, or groups?: not at all During the past 4 weeks, how much bodily pain have you generally had?: mild pain During the past 4 weeks, was someone available to help you if you needed & wanted help?: yes, as much as I wanted During the past 4 weeks, what was the hardest physical activity you could do for at least 2 minutes?: moderate Can you get to places out of walking distance without help? (For eg., can you travel alone on buses, taxis or drive your car?): Yes Can you go shopping for groceries or clothes without someone's help?: Yes Can you prepare your own meals?: Yes Can you do your housework without help?: Yes Because of any health problems, do you need the help of another person with your personal care needs such as eating, bathing, dressing or getting around the house?: No Can you handle your own money without help?: Yes During the past 4 weeks, how would you rate your health in general?: good During the past 4 weeks how have things been going for you?: very well; could hardly better Are you having difficulties driving your car?: no Do you always fasten your seat belt when you are in a car?: yes, usually During past 4 weeks, have you been bothered by the following: never: Falling or dizzy when standing up, Sexual problems?, Trouble eating well?, Teeth or denture problems?, Problems using the telephone? and Tiredness or fatigue? Have you fallen 2 or more times in the past year?: No Are you afraid of falling?: No Are you a smoker?: no During the past 4 weeks, how many drinks of wine, beer, or other alcoholic beverages did you have?: 1 drink or less per week Do you exercise for about 20 minutes 3 or more times a week?: yes, all the time Have you been given information to help with the following?: no: Hazards in your house that might hurt you? and no: Keeping track of your medications? How often do you have trouble taking medicines the way you have been told to take them?: I always take medicine as prescribed How confident are you that you can control & manage most of your health problems?: very confident What is your race?: White Mini Mental State Exam (MMSE) Orientation What is the (year) (season) (date) (day) (month)?: year, season, date, day and month Where are we (state) (county) (town or city) (hospital) (floor)?: state, county, town or city, hospital/clinic and floor Score Score: 10 Activity of Daily Living Bathing - sponge bath, tub bath or shower: receives no assistance (gets in/out by self, if usual bathing means Dressing - getting clothes from closets & drawers, including inner/outer garments & fasteners.: gets clothes & gets completely dressed without help Toileting - going to the 'toilet room' for urine/bowel elimination & cleaning self/arranging clothes: goes to toilet room, cleans self, arranges clothes without help Transfer: moves in & out of bed and chair without help (may use support object) Continence: controls urination/bowel movements completely by self Feeding: feeds self without help Total Score: 0 Information obtained from: patient Using telephone: independent Traveling: independent Shopping: independent Preparing meals: independent Housework: independent Taking medicine: independent Managing money: independent PHQ-9 Over the last 2 weeks, how often have you been bothered by any of the following problems? 1. Little interest or pleasure in doing things: not at all 2. Feeling down, depressed, or hopeless: not at all 3. Trouble falling or staying asleep, or sleeping too much: several days 4. Feeling tired or having little energy: several days 5. Poor appetite or overeating: not at all 6. Feeling bad about yourself - or that you are a failure or have let yourself or your family down: not at all 7. Trouble concentrating on things, such as reading the newspaper or watching television: not at all 8. Moving or speaking so slowly that other people could have noticed. Or the opposite - being so fidgety or restless that you have been moving around a lot more than usual: not at all 9. Thoughts that you would be better off or of hurting yourself in some way: not at all Total score: 2 Depression Screening Interpretation: Negative Depression Screening Done: Yes 41383 - PHQ-9 Billing: Yes Source: Developed by Drs. Jasvir Camarillo, Cindy Weiner, Flaco Chance and colleagues, with an educational maricarmen from [employer]. Physical Exam Vital Signs: Last Vital Signs Pulse 71 07/14/25 09:43 Resp 16 07/14/25 09:43 BP 130/82 07/14/25 09:43 Pulse Ox 96 07/14/25 09:43 Oxygen Delivery Method Room Air 07/14/25 09:43 BMI result Body Mass Index 40.4 Assessment & Plan Assessment & Plan (1) Medicare annual wellness visit, subsequent: Code(s): Z00.00 - Encounter for general adult medical examination without abnormal findings (2) Strain of right biceps: Code(s): S46.211A - Strain of muscle, fascia and tendon of other parts of biceps, right arm, initial encounter Qualifiers: Encounter type: initial encounter Qualified Code(s): S46.211A - Strain of muscle, fascia and tendon of other parts of biceps, right arm, initial encounter (3) PND (post-nasal drip): Code(s): R09.82 - Postnasal drip (4) LFT elevation: Code(s): R79.89 - Other specified abnormal findings of blood chemistry (5) Environmental allergies: Code(s): Z91.09 - Other allergy status, other than to drugs and biological substances (6) Hypertension, essential: Code(s): I10 - Essential (primary) hypertension (7) Lipid disorder: Code(s): E78.9 - Disorder of lipoprotein metabolism, unspecified (8) Impaired fasting blood sugar: Code(s): R73.01 - Impaired fasting glucose (9) Chronic GERD: Code(s): K21.9 - Gastro-esophageal reflux disease without esophagitis (10) Migraine headache: Code(s): G43.909 - Migraine, unspecified, not intractable, without status migrainosus Qualifiers: Migraine type: unspecified Status migrainosus presence: without status migrainosus Intractability: intractable Qualified Code(s): G43.919 - Migraine, unspecified, intractable, without status migrainosus Plan having some acute problems that he want to discuss today, like PND, and pain right upper arm - The patient reports sore spot in his right arm. - The pain occurs when he sleeps on his right side and feels a stretch when he lifts his arm. Non-alcoholic steatohepatitis (GREEN): - Recent lab results show that his liver enzymes are slightly elevated but stable. - liver ultrasound is ordered to further evaluate Elevated prostate-specific antigen (PSA): - The patient is followed by a urologist, Dr. Powell, for an elevated PSA level noted in December. - He was recently started on finasteride 5 mg. - A follow-up blood test for PSA is scheduled for next month. Hearing Impairment: - The patient has hearing difficulty in both ears and tinnitus. - He owns hearing aids but does not wear them regularly because he feels he can still hear and that they make sounds too loud. - He has an upcoming appointment at the [facility] to have the hearing aids checked. PND: - The patient reports a chronic sensation of phlegm or postnasal drip in his throat which he tries to cough up. - He is not taking his prescribed omeprazole regularly. - He has known allergies, with some sneezing and watery eyes, for which he takes an qxom-sck-ppzkswa pill daily and uses a fluticasone nasal spray. Health Maintenance: - The patient's last colonoscopy was at age 65, and he is scheduled for another one next year, at age 70, suggesting a 5-year interval. - His last eye exam was in August of this year, with another one scheduled for the upcoming August. - Immunizations are up to date, including a pneumonia vaccine in November, tetanus in 2021, and shingles and COVID vaccines in May of this year, as well as a flu vaccine. - He reports no falls in the last year and denies depression. - A healthcare proxy form has not yet been provided. Medications: - Zetia for hyperlipidemia - Fluticasone nasal spray - Hydrochlorothiazide 25 mg for hypertension - Losartan 50 mg for hypertension - Omeprazole 20 mg for acid reflux - Propranolol for migraine - Rosuvastatin 10 mg for hyperlipidemia - Finasteride 5 mg for elevated PSA - Unspecified OTC medication for allergies Social History: - Alcohol use: The patient reports drinking one or two alcoholic beverages per week. - Functional Status: The patient denies any falls in the last year. Diagnostic Results: - Labs: Recent bloodwork indicates the patient is prediabetic, kidney functions are okay, and the blood count is normal with no anemia. - Liver Enzymes: Slightly high but stable. - PSA: Was elevated in December. Problem List - Medicare Annual Wellness Visit - Right arm pain - PND - Possible Non-alcoholic steatohepatitis (GREEN) - Prediabetes - Hyperlipidemia - Hypertension - Gastroesophageal reflux disease (GERD) - Elevated prostate-specific antigen (PSA) - Allergic rhinitis - Migraine - Hearing loss with tinnitus - Health maintenance Plan - An abdominal ultrasound will be ordered to evaluate for fatty liver disease. - The patient was advised to take omeprazole 20 mg daily at night for PND, phlegm and cough, which may be related to GERD. - For right arm pain, the patient was advised to avoid sleeping on that side; he declined a physical therapy referral at this time and will attempt to manage it on his own. - The patient was advised to continue his current medications for cholesterol, blood pressure, and migraines. - He will continue to follow up with his urologist for elevated PSA and will proceed with a scheduled blood test next month. - He is encouraged to attend his upcoming appointment to have his hearing aids adjusted. - The patient was reminded to bring his healthcare proxy form to his next appointment. - The patient will proceed with his scheduled colonoscopy next year and his eye exam in August. - He was counseled on lifestyle modifications for fatty liver, including weight loss, healthy eating, and avoiding alcohol and excessive Tylenol. f/u 3-4 M Orders: Orders US abdomen limited 07/14/25 R79.89 - Other specified abnormal findings of blood chemistry Medications: New finasteride 5 mg PO DAILY Quality Reporting (2019) Depression/Bipolar (159/160/161/177) PHQ-9: Total score: 2 Coding Level of Care Code Medicare Subsequent (G0439) Est Pt Level 4 (41312) Diagnoses Medicare annual wellness visit, subsequent Z00.00 Strain of right biceps, initial encounter S46.211A Encounter type: initial encounter PND (post-nasal drip) R09.82 LFT elevation R79.89 Environmental allergies Z91.09 Hypertension, essential I10 Lipid disorder E78.9 Impaired fasting blood sugar R73.01 Chronic GERD K21.9 Intractable migraine without status migrainosus, unspecified migraine type G43.919 Migraine type: unspecified Status migrainosus presence: without status migrainosus Intractability: intractable CPT Codes Advance Care Planning - Advance Care Planning discussion: On file, no changes ([id number]) Advance Care Planning - Time spent: 1-15 minutes, on File ([id number]) Additional Codes PHQ-9 - 33350 - PHQ-9 Billing: Yes ([id number]) Advance Care Planning Advance Care Planning discussion: On file, no changes Forms completed: Health Care Proxy and MOLST Time spent: 1-15 minutes, on File Actual minutes spent: 5
--- OUTSIDE RECORDS SUMMARY | 2025-07-14 10:29 | XMS_ITS | Clinical Summary ---
Author Organization [address] [facility] Address [address] [place] [address] Phone Care Team Providers Care Senior Sales Manager Name Role Phone Amalia Salcedo MD Primary Care Provider [phone] Allergies No known active allergies Medications losartan [...] disease) Overview (01/25/2025): Asthma 01/25/2025 Morbid obesity ([facility] V24, [facility] V28) 2024 MERYL (obstructive sleep apnea) 01/25/2025 Allergic rhinitis 01/25/2025 Acute migraine 01/25/2025 Hypercholesteremia 01/25/2025 Encounters Date Type Department Care Team Description 05/04/2025 10:00 AM EDT Office Visit Pulmonology - [address] [phone] Elliott Ocampo MD Mild asthma, unspecified whether complicated, unspecified whether persistent (Primary Dx); Gastroesophageal reflux disease without esophagitis; Primary hypertension; MERYL (obstructive sleep apnea); Allergic rhinitis due to pollen, unspecified seasonality; Morbid obesity ([facility] V24, [facility] V28) from Last 3 Months Social History [...] 08/08/2025 10:30 AM EST Ancillary Procedure Pulmonology [address] [phone] 08/08/2025 11:30 AM EST Office Visit Pulmonology - [address] [phone] Elliott Ocampo MD [address] [place] [phone] Health Maintenance Due Date Last Done Comments Colorectal Cancer Screening: Colonoscopy 1955 RSV Immunization Adult Patients (1 - Risk 50-74 years 1-dose series) 11/26/2005 Depression Screening 08/31/2024 Cholesterol Screening (Lipid Panel) 01/11/2025 Falls Risk Assessment 01/11/2025 Hepatitis C Screening 01/11/2025 Medicare Annual Wellness Visit 01/11/2025 Social Influencers of Health Screening 01/11/2025 Zoster Vaccines (2 of 2) 02/16/2025 12/22/2024 COVID-19 Vaccine (2024- season) 2025 05/26/2024, 05/27/2023, 07/10/2022, Additional history [...] age to complete this topic Insurance MEDICARE [facility] Care Teams Senior Sales Manager Relationship Specialty Start Date End Date Amalia Salcedo MD [address] [place] [address] PCP - General Internal Medicine 02/01/25
--- OUTSIDE RECORDS SUMMARY | 2025-07-14 10:29 | XMS_ITS | Patient Health Record ---
Author Organization [facility] Address [address] [place] [phone] Care Team Providers Care Gang Worker Name Role Phone Matias GALLEGO, [facility] Primary Care Provider Jasvir Wilson [phone] Reason For Referral No Information Medications Medication [...] Problem Screening for malignant neoplasm of colon ([id number]) Encounter for screening for malignant neoplasm of colon (Z12.11) Active confirmed Problem Preprocedural examination ([id number]) Preprocedural examination (Z01.818) Active confirmed Problem Gastroesophageal reflux disease (385146036) Gastroesophageal reflux disease, esophagitis presence not specified (K21.9) Active confirmed Plan Of Treatment Future Test Test Name Order Date COLONOSCOPY 02/25/2017 Insurance Providers Payer Name Payer Address Payer Phone Subscriber Number Group Number Insured Name Patient Relationship to Insured Coverage Start Date Coverage End Date [facility] ([employer] L [employer]) [address] [place] [phone] [id number] NATHALIA ABBOTT Self - patient is the insured Medical (General) History Medical History History ICD Code Denies NV,DM,CVA,Lung disease,renal dise ase HTN GERD Hyperlipidemia BPH Sleep apnea--uses CPAP Surgical History Surgery Date(Month/Year) Vasectomy
== END 2025-07-14 10:49 | disposition home or self-care (01) ==
LOC: HO.HMCC 09:30
PROVIDERS: PCP Internal Medicine; Visit Provider Internal Medicine
DX: Z00.00 Encounter for general adult medical examination without abnormal findings (principal); S46.211A Strain of muscle, fascia and tendon of other parts of biceps, right arm, initial encounter; R09.82 Postnasal drip; R79.89 Other specified abnormal findings of blood chemistry; Z91.09 Other allergy status, other than to drugs and biological substances; I10 Essential (primary) hypertension; E78.9 Disorder of lipoprotein metabolism, unspecified; R73.01 Impaired fasting glucose; K21.9 Gastro-esophageal reflux disease without esophagitis; G43.919 Migraine, unspecified, intractable, without status migrainosus

== ENCOUNTER → 2025-07-14 09:29 | Outpatient (BNVA) | payer MEDICARE, OTHER, SELFPAY | PROVIDERS: PCP Internal Medicine; Visit Provider Internal Medicine | DX: Z00.00 Encounter for general adult medical examination without abnormal findings (principal); S46.211A Strain of muscle, fascia and tendon of other parts of biceps, right arm, initial encounter; K75.81 Nonalcoholic steatohepatitis (NASH); R97.20 Elevated prostate specific antigen [PSA]; R09.82 Postnasal drip; R79.89 Other specified abnormal findings of blood chemistry; I10 Essential (primary) hypertension; E78.9 Disorder of lipoprotein metabolism, unspecified; R73.01 Impaired fasting glucose; K21.9 Gastro-esophageal reflux disease without esophagitis; G43.919 Migraine, unspecified, intractable, without status migrainosus; X58.XXXA Exposure to other specified factors, initial encounter; Y93.9 Activity, unspecified; Y92.9 Unspecified place or not applicable; Y99.9 Unspecified external cause status; Z91.09 Other allergy status, other than to drugs and biological substances | CPT/HCPCS: 96127; 99212 ==

== ENCOUNTER 2025-07-20 08:36 | Outpatient (REF) | payer MEDICARE, OTHER, SELFPAY ==
--- NOTE | ~2025-07-20 | US_ITS ---
CLINICAL HISTORY: R79.89 - Other specified abnormal findings of blood chemistry,elevated lft US abdomen limited with duplex and color Doppler Comparison: None Findings: Visualized pancreas is normal. Tail obscured by bowel gas. Liver is borderline enlarged and diffusely echogenic. Right lobe length 18.1 cm. Fatty sparing near the gallbladder fossa. Simple hepatic cysts right lobe measuring 1.9 x 1.0 x 1.2 cm. Common duct 2.0 mm diameter. Gallbladder is physiologically distended. No gallstones, sludge or wall abnormalities. No gallbladder wall thickening. No pericholecystic fluid. No sonographic Ballard sign. Main portal vein antegrade. Right kidney measures, 13.0 cm in length. Normal cortical width and echotexture. No hydronephrosis calculus or mass. Impression: 1. Mild hepatomegaly with hepatic steatosis and focal fatty sparing. Incidental hepatic cyst. 2. Normal gallbladder This document has been electronically signed by: James Longoria MD on 07/20/2025 11:34:27
== END 2025-07-20 08:37 | disposition home or self-care (01) ==
LOC: HO.US 08:36
PROVIDERS: PCP Internal Medicine; Visit Provider Internal Medicine
DX: R79.89 Other specified abnormal findings of blood chemistry (principal)
CPT/HCPCS: 76705